=== PATIENT | female | born 1995 | race Caucasian/White ===

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

== ENCOUNTER 2017-01-10 15:31 | Emergency (ER) | payer MEDICAID ==
[2017-01-10 15:41] VITALS: BP 123/79
[2017-01-10] MEDS ORDERED: FAMOTIDINE 20 MG TABLET PO ONE (16:04)
[2017-01-10] MEDS ORDERED: PREDNISONE 20 MG TABLET PO ONE (16:04)
[2017-01-10] MEDS ORDERED: DIPHENHYDRAMINE HCL 25 MG CAPSULE PO ONE (16:04)
[2017-01-10] MEDS ORDERED: ACETAMINOPHEN 325 MG TABLET PO ONE (16:05)
--- NOTE | 2017-01-10 16:10 | ER Document Report ---
ED Skin Rash/Insect Bite/Abscs - General Chief Complaint: Rash Stated Complaint: POSSIBLE ALLERGIC REACTION Time Seen by Provider: 01/10/17 15:55 Mode of Arrival: Ambulatory Notes: 21-year-old female presents to ED for allergic reaction to the Holter monitor electrodes. She states that since they put the morning they started itching which was on January 08 they took him off yesterday and a rash developed at the spot of each electrode. She states that it did became painful to the area. There is no swelling there is a rash to each area. TRAVEL OUTSIDE OF THE [place] IN LAST 30 DAYS: No - HPI Patient complains to provider of: Skin rash/lesion Onset: Other - January 08 Onset/Duration: Gradual Quality of pain: Achy, Burning Pain Level: 1 Skin Character: Rash Quality of rash: Itchy Identify cause: Yes - Holter monitor electrodes Exacerbated by: Denies Relieved by: Denies Similar symptoms previously: No Recently seen / treated by doctor: Yes - Related Data Allergies/Adverse Reactions: No Known Drug Allergies Allergy (Verified 01/10/17 15:37) FISH Allergy (Uncoded 01/10/17 15:37) Past Medical History - General Information source: Patient - Social History Smoking Status: Never Smoker Cigarette use (# per day): No Chew tobacco use (# tins/day): No Smoking Education Provided: No Frequency of alcohol use: None Drug Abuse: None Occupation: none Lives with: Family Family History: Other - Patient states she does not know her father's family does not know his history Patient has suicidal ideation: No Patient has homicidal ideation: No - Past Medical History Cardiac Medical History: Reports: None Pulmonary Medical History: Reports: Hx Bronchitis EENT Medical History: Reports: None Neurological Medical History: Reports: None Endocrine Medical History: Reports: None Renal/ Medical History: Reports: None Malignancy Medical History: Reports: None GI Medical History: Reports: None Musculoskeltal Medical History: Reports Hx Musculoskeletal Deformity, Reports Hx Musculoskeletal Trauma Skin Medical History: Reports None Psychiatric Medical History: Reports: Hx Attention Deficit Hyperactivity Disorder Traumatic Medical History: Reports: Hx Fractures Infectious Medical History: Reports: None Surgical Hx: Negative Past Surgical History: Reports: None - Immunizations Immunizations up to date: Yes Hx Diphtheria, Pertussis, Tetanus Vaccination: Yes Review of Systems - Review of Systems Constitutional: No symptoms reported EENT: No symptoms reported Cardiovascular: No symptoms reported Respiratory: No symptoms reported Gastrointestinal: No symptoms reported Genitourinary: No symptoms reported Female Genitourinary: No symptoms reported Musculoskeletal: No symptoms reported Skin: Rash Hematologic/Lymphatic: No symptoms reported Neurological/Psychological: No symptoms reported -: Yes All other systems reviewed and negative Physical Exam - Vital signs Vitals: Temp Pulse Resp BP Pulse Ox 98.1 F 107 H 18 123/79 100 01/10/17 15:38 01/10/17 15:38 01/10/17 15:38 01/10/17 15:38 01/10/17 15:38 Interpretation: Normal - General General appearance: Appears well, Alert - HEENT Head: Normocephalic, Atraumatic Eyes: Normal Pupils: PERRL - Respiratory Respiratory status: No respiratory distress Chest status: Nontender Breath sounds: Normal Chest palpation: Normal - Cardiovascular Rhythm: Regular Heart sounds: Normal auscultation Murmur: No - Abdominal Inspection: Normal Distension: No distension Bowel sounds: Normal Tenderness: Nontender Organomegaly: No organomegaly - Back Back: Normal, Nontender - Extremities General upper extremity: Normal inspection, Nontender, Normal color, Normal ROM , Normal temperature General lower extremity: Normal inspection, Nontender, Normal color, Normal ROM , Normal temperature, Normal weight bearing. No: Gomez's sign - Neurological Neuro grossly intact: Yes Cognition: Normal Orientation: AAOx4 Kal Coma Scale Eye Opening: Spontaneous Kal Coma Scale Verbal: Oriented Kal Coma Scale Motor: Obeys Commands Kal Coma Scale Total: 15 Speech: Normal Motor strength normal: LUE, RUE, LLE, RLE Sensory: Normal - Psychological Associated symptoms: Normal affect, Normal mood - Skin Skin Temperature: Warm Skin Moisture: Dry Skin Color: Normal Skin irregularity: Rash Location of irregularity: Chest - At site of electrodes from Holter monitor Irregularity with: Tenderness - To site of Holter monitor electrolytes Course - Re-evaluation Re-evalutation: 01/10/17 16:20 Patient treated with prednisone and Pepcid Benadryl and Tylenol for her rash to her chest from her allergic reaction to the electrodes from her Holter monitor. Patient sent home with prescription for prednisone and Pepcid. Patient to follow-up with her primary doctor and the doctor who put the Holter monitor on her. - Vital Signs Vital signs: Temp Pulse Resp BP Pulse Ox 98.1 F 107 H 18 123/79 100 01/10/17 15:38 01/10/17 15:38 01/10/17 15:38 01/10/17 15:38 01/10/17 15:38 Discharge - Discharge Clinical Impression: allergic reaction to adhesive Condition: Stable Disposition: HOME, SELF-CARE Instructions: Family Physicians / Practices Additional Instructions: ACUTE ALLERGIC REACTION: Your symptoms are due to an allergic reaction. Allergy can cause hives, swelling of the hands, feet, and face, hoarseness, and difficulty swallowing or breathing. It may be due to exposure to medication, animal dander, foods, infection, or insect bites. Medication is a common cause, even when prior use of this same medication caused no problems. Acute treatment may include adrenalin and antihistamines. Usually, the specific allergic agent can't be identified unless repeated episodes occur. Home treatment includes the following: (1) Stop any suspicious medications. This will be discussed with you. (2) Oral antihistamines for the next four to five days. Example, diphenhydramine (Benadryl) every four hours. (3) You may also use cimetidine (Tagamet), ranitidine (Zantac), or famotidine ( Pepcid) every four hours if diphenhydramine is not controlling itching and hives. (4) Avoid aspirin until the hives completely disappear. (5) Avoid hot baths or showers until the hives are completely gone. Call the doctor if faintness, difficulty swallowing, tightness in the chest , or wheezing occurs. STEROID MEDICATION: You have been given a medicine of the cortisone/steroid class. This medication is used to control inflammation or allergy. It is usually only given for a short period of time, until the acute process subsides. There are usually no side effects from short-term use of cortisone-like medications. Some persons feel an increased sense of well-being and are not sleepy at bedtime. Long-term use of cortisone medications is best avoided, unless required for a severe condition. If your condition does not remit, or relapses after the course of corticosteroid medication, you should consult your physician. ACID-SUPPRESSING MEDICATION: You have a prescription for medicine which reduces the stomach's secretion of acid. Examples include Zantac, Tagament, and Pepcid. These drugs are often used to allow healing of ulcers or esophagitis. They may be needed to prevent recurrence of ulcers in some patients, or to prevent damage from acid reflux in the esophagus. Take all medication as prescribed, even after the pain is gone. Regular antacids may be added as needed if you have symptoms while taking this medicine. These medications sometimes are prescribed for allergic reactions because they have anti-histaminic effects and relieve the rash and itching of the reaction. There are usually no side effects from this medication. But, in rare cases and particularly in the elderly, serious problems can occur. Contact your doctor if there is fever, rash, hallucinations, confusion, or unusual bruising. Contact your doctor at once if you develop lightheadedness, black or bloody stool, or bloody vomitus. ANTIHISTAMINES: An antihistamine has been given and/or prescribed to control your symptoms. Antihistamines are used for many reasons, including itching, watering eyes, runny nose, allergic swelling, hives, and insect stings. Antihistamines may cause drowsiness, especially with the first dose. Do not operate machinery or drive while under the effects of the medication. Other common side effects include dry mouth and eyes. In older persons, antihistamines can occasionally cause urinary retention, constipation, and trouble focusing the eyes. Do not combine the medication with alcohol, or with any other medication without talking to your doctor. USE OF DIPHENHYDRAMINE: The use of diphenhydramine (Benadryl) has been recommended to control allergic symptoms. The 25 mg strength is available over- the-counter, as well as the elixir. This antihistamine is used for many symptoms. It's useful for itching, watering eyes and nose, allergic swelling, hives, and insect stings. The medication can be repeated four times daily. Age Elixir (12.5 mg/tsp) 25 mg pill 2-3 yr 1/2 tsp 4-8 yr 1 tsp 9-14 yr 2 tsp one tab adult 1-2 tabs Antihistamines may cause drowsiness, especially with the first dose. Do not operate machinery or drive while under the effects of the medication. Do not combine the medication with alcohol, or with any other medication without talking to your doctor. Please use Caladryl to the rash to decrease her symptoms. Take a cool tepid shower instead of a hot shower as hot showers will increase the itching FOLLOW-UP CARE: If you have been referred to a physician for follow-up care, call the physician s office for an appointment as you were instructed or within the next two days. If you experience worsening or a significant change in your symptoms, notify the physician immediately or return to the Emergency Department at any time for re-evaluation. Prescriptions: Famotidine [Pepcid 20 mg Tablet] 20 mg PO DAILY #12 tablet Prednisone [Sterapred Ds] 1 pkg PO ASDIR PRN 12 Days tab.ds.pk PRN Reason:
== END 2017-01-10 16:15 | disposition home or self-care (01) ==
LOC: ER 15:31
DX: T78.40XA Allergy, unspecified, initial encounter (principal); R21 Rash and other nonspecific skin eruption; X58.XXXA Exposure to other specified factors, initial encounter
CPT/HCPCS: 99282; J3490 ×3; J7512

== ENCOUNTER 2017-04-25 18:12 | Emergency (ER) | payer MEDICAID ==
--- NOTE | 2017-04-25 19:00 | ER Document Report ---
ED Medical Screen (RME) - General Chief Complaint: Epigastric Pain Stated Complaint: EPIGASTRIC PAIN Time Seen by Provider: 04/25/17 18:57 Notes: Patient presents with hand tingling chest pain epigastric pain trouble breathing weakness dizziness. She states she has a history of dilated aortic root, Ehler Danlos syndrome, pots disease, and autonomic dysfunction. She denies tobacco or hormone use. No previous history of PEs or DVTs. TRAVEL OUTSIDE OF THE [place] IN LAST 30 DAYS: No - Related Data Allergies/Adverse Reactions: nickel Allergy (Verified 04/25/17 18:15) No Known Drug Allergies Allergy (Verified 04/25/17 18:15) electrode gel Allergy (Uncoded 04/25/17 18:15) FISH Allergy (Uncoded 04/25/17 18:15) Home Medications: Current Home Medications Buspirone HCl 1 tab PO BID 04/25/17 [History] Hydroxyzine HCl 0.5 - 1 tab PO TID PRN 04/25/17 [History] Magnesium Oxide 2 tab PO BID 04/25/17 [History] Past Medical History - Social History Frequency of alcohol use: None Drug Abuse: None Pulmonary Medical History: Reports: Hx Bronchitis Renal/ Medical History: Denies: Hx Peritoneal Dialysis Musculoskeltal Medical History: Reports Hx Musculoskeletal Deformity, Reports Hx Musculoskeletal Trauma Psychiatric Medical History: Reports: Hx Attention Deficit Hyperactivity Disorder Traumatic Medical History: Reports: Hx Fractures - Immunizations Immunizations up to date: Yes Hx Diphtheria, Pertussis, Tetanus Vaccination: Yes History of Influenza Vaccine for 02/2017 - 07/2017 Season: No Physical Exam - Vital signs Vitals: Temp Pulse Resp BP Pulse Ox 98.4 F 101 H 16 121/69 100 04/25/17 18:21 04/25/17 18:21 04/25/17 18:21 04/25/17 18:21 04/25/17 18:21 Course - Vital Signs Vital signs: Temp Pulse Resp BP Pulse Ox 98.4 F 101 H 16 121/69 100 04/25/17 18:21 04/25/17 18:21 04/25/17 18:21 04/25/17 18:21 04/25/17 18:21
--- NOTE | 2017-04-25 19:37 | ER Document Report ---
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 Intermittent shortness of breath. She also has panic attacks and earlier today had hand tingling during the. "When I was freaking out" but did not have that now. She denies ripping or tearing pain, maximal at onset pain, pain radiating to the back or shoulders or other neurologic symptoms unilaterally. 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 TRAVEL OUTSIDE OF THE [place] IN LAST 30 DAYS: No - Related Data Allergies/Adverse Reactions: nickel Allergy (Verified 04/25/17 18:15) No Known Drug Allergies Allergy (Verified 04/25/17 18:15) electrode gel Allergy (Uncoded 04/25/17 18:15) FISH Allergy (Uncoded 04/25/17 18:15) Home Medications: Current Home Medications Buspirone HCl 1 tab PO BID 04/25/17 [History] Hydroxyzine HCl 0.5 - 1 tab PO TID PRN 04/25/17 [History] Magnesium Oxide 2 tab PO BID 04/25/17 [History] Past Medical History - Social History Smoking Status: Never Smoker Frequency of alcohol use: None Drug Abuse: None Family History: Other - Patient states she does not know her father's family does not know his history Patient has suicidal ideation: No Patient has homicidal ideation: No Pulmonary Medical History: Reports: Hx Bronchitis Renal/ Medical History: Denies: Hx Peritoneal Dialysis Musculoskeltal Medical History: Reports Hx Musculoskeletal Deformity, Reports Hx Musculoskeletal Trauma Psychiatric Medical History: Reports: Hx Attention Deficit Hyperactivity Disorder Traumatic Medical History: Reports: Hx Fractures - Immunizations Immunizations up to date: Yes Hx Diphtheria, Pertussis, Tetanus Vaccination: Yes Review of Systems - Review of Systems Notes: REVIEW OF SYSTEMS GEN: Denies fever, chills, weight loss ENT: Denies sore throat, nasal discharge, ear pain EYES: Denies blurry vision, eye pain, discharge CV: No palpitations positive subcostal chest pain RESP: D no cough or wheezing positive shortness of breath g GI: Denies abdominal pain, nausea, vomiting, diarrhea MSK: Denies joint pain/swelling, edema, SKIN: Denies rash, skin lesions LYMPH: Denies swollen glands/lymph nodes NEURO: Denies headache, focal weakness or numbness, dizziness PSYCH: Denies depression, suicidal or homicidal ideation PHYSICAL EXAMINATION General: No acute distress, well-nourished Head: Atraumatic, normocephalic ENT: Mouth normal, oropharynx moist, no exudates or tonsillar enlargement Eyes: Conjunctiva normal, pupils equal, lids normal Neck: No JVD, supple, no guarding CVS: Normal rate, regular rhythm, no murmurs Resp: No resp distress, equal and normal breath sounds bilaterally GI: Nondistended, soft, no tenderness to palpation, no rebound or guarding Ext: No deformities, no edema, normal range of motion in upper and lower ext. Hypermobility in hands and arms. Back: No CVA or midline TTP Skin: No rash, warm Lymphatic: No lymphadeopathy noted Neuro: Awake, alert. Face symmetric. GCS 15. 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 She is currently pain-free well-appearing with a normal cardiopulmonary exam. Her ECG here is normal. Recent negative stress test. Doubt acute coronary syndrome. In terms of other causes of her chest pain, and does not have the characteristics of aortic dissection despite her's solitary risk factor of having Nora-Danlos syndrome. I will get a chest x-ray and labs as ordered by the triage physician, but I do not think she needs a troponin or a CAT scan at this time. - Vital Signs Vital signs: Temp Pulse Resp BP Pulse Ox 98.4 F 101 H 16 121/69 100 04/25/17 18:21 04/25/17 18:21 04/25/17 18:21 04/25/17 18:21 04/25/17 18:21 - EKG Interpretation by Me EKG shows normal: Sinus rhythm, [place] Rate: Normal Rhythm: NSR When compared to previous EKG there are: Previous EKG unavailable - No ST or T- wave changes
[2017-04-25 19:41] LABS: AMORPHOUS SEDIMENT,URINE 1+ /HPF; APPEARANCE,URINE CLOUDY; BILIRUBIN,URINE NEGATIVE (NEGATIVE); GLUCOSE, URINE NEGATIVE (NEGATIVE); KETONES,URINE NEGATIVE (NEGATIVE); LEUKOCYTE ESTERASE,URINE NEGATIVE (NEGATIVE); NITRITE,URINE NEGATIVE (NEGATIVE); PROTEIN,URINE NEGATIVE (NEGATIVE); URINE SPECIFIC GRAVITY 1.021; UROBILINOGEN,URINE NEGATIVE mg/dL (<2.0)
[2017-04-25] MEDS ORDERED: IBUPROFEN 400 MG TABLET PO ONE (20:32)
--- NOTE | 2017-04-25 20:36 | RADIOLOGY REPORT (SQ) ---
EXAM DESCRIPTION: CHEST PA/LAT COMPLETED DATE/TIME: 04/25/2017 8:12 pm REASON FOR STUDY: chest pain, ehler's danlos. ?wide mediast. COMPARISON: 07/03/2016 EXAM PARAMETERS: NUMBER OF VIEWS: two views TECHNIQUE: Digital Frontal and Lateral radiographic views of the chest acquired. RADIATION DOSE: NA LIMITATIONS: none FINDINGS: LUNGS AND PLEURA: No acute opacities, masses or pneumothorax. No pleural effusion. MEDIASTINUM AND HILAR STRUCTURES: Stable. HEART AND VASCULAR STRUCTURES: Heart normal size. No evidence for failure. BONES: No acute findings. HARDWARE: None in the chest. OTHER: No other significant finding. IMPRESSION: Stable radiograph. No acute findings. TECHNICAL DOCUMENTATION: JOB ID: [id number] [id number] 2010 [employer]- All Rights Reserved
[2017-04-25 20:37] VITALS: BP 114/65
--- NOTE | 2017-04-26 07:50 | EKG REPORT ---
SEVERITY:- NORMAL ECG - SINUS RHYTHM : Confirmed by: Moshe Monroe MD 26-Apr-2017 07:49:07
== END 2017-04-25 20:37 | disposition home or self-care (01) ==
LOC: ER 18:12
DX: R07.89 Other chest pain (principal); Q79.6 Ehlers-Danlos syndromes; R06.02 Shortness of breath; Z91.013 Allergy to seafood; Z88.8 Allergy status to other drugs, medicaments and biological substances
CPT/HCPCS: 93005; 99284; 81025; 81001; 71020; 93010; J3490

== ENCOUNTER 2017-06-07 18:42 | Emergency (ER) | payer MEDICAID ==
--- NOTE | 2017-06-07 20:15 | ER Document Report ---
ED Medical Screen (RME) - General Chief Complaint: Dizziness Stated Complaint: BACK PAIN Time Seen by Provider: 06/07/17 20:11 Mode of Arrival: Ambulatory Information source: Patient Notes: Patient is a 21-year-old female with a history of anxiety who presents to the ER today for panic attack that she had on her way to work this afternoon. Patient states she rides a bicycle to work about a mile and on the way started feeling lightheaded, chest pain, stopped and had a nosebleed. She felt like she was going to pass out at that time but she did not. Patient states that this is what happens with her panic attacks that she took some hydroxyzine which she has for emergencies at that time. Patient did not go to work. TRAVEL OUTSIDE OF THE [place] IN LAST 30 DAYS: No - Related Data Allergies/Adverse Reactions: nickel Allergy (Verified 04/25/17 18:15) No Known Drug Allergies Allergy (Verified 04/25/17 18:15) electrode gel Allergy (Uncoded 04/25/17 18:15) FISH Allergy (Uncoded 04/25/17 18:15) Past Medical History - General Information source: Patient - Social History Chew tobacco use (# tins/day): No Frequency of alcohol use: None Drug Abuse: None Pulmonary Medical History: Reports: Hx Bronchitis Renal/ Medical History: Denies: Hx Peritoneal Dialysis Musculoskeltal Medical History: Reports Hx Musculoskeletal Deformity, Reports Hx Musculoskeletal Trauma Psychiatric Medical History: Reports: Hx Attention Deficit Hyperactivity Disorder Traumatic Medical History: Reports: Hx Fractures - Immunizations Immunizations up to date: Yes Hx Diphtheria, Pertussis, Tetanus Vaccination: Yes History of Influenza Vaccine for 02/2017 - 07/2017 Season: No Review of Systems - Review of Systems Neurological/Psychological: See HPI Physical Exam - Vital signs Vitals: Temp Pulse Resp BP Pulse Ox 98.6 F 115 H 18 132/65 H 100 06/07/17 19:08 06/07/17 19:08 06/07/17 19:08 06/07/17 19:08 06/07/17 19:08 - Notes Notes: PHYSICAL EXAMINATION: GENERAL: Anxious appearing, but in no acute distress. PSYCH: Anxious Course - Vital Signs Vital signs: Temp Pulse Resp BP Pulse Ox 98.6 F 115 H 18 132/65 H 100 06/07/17 19:08 06/07/17 19:08 06/07/17 19:08 06/07/17 19:08 06/07/17 19:08
[2017-06-07 22:16] LABS: APPEARANCE,URINE CLEAR; BILIRUBIN,URINE NEGATIVE (NEGATIVE); COLOR,URINE STRAW; GLUCOSE, URINE NEGATIVE (NEGATIVE); KETONES,URINE NEGATIVE (NEGATIVE); LEUKOCYTE ESTERASE,URINE TRACE (NEGATIVE); NITRITE,URINE NEGATIVE (NEGATIVE); PROTEIN,URINE NEGATIVE (NEGATIVE); URINE SPECIFIC GRAVITY 1.008; UROBILINOGEN,URINE NEGATIVE mg/dL (<2.0)
[2017-06-07 22:31] LABS: URINE AMPHETAMINES SCREEN NEGATIVE; URINE BARBITURATES SCREEN NEGATIVE; URINE BENZODIAZEPINES SCREEN NEGATIVE; URINE COCAINE SCREEN NEGATIVE; URINE MARIJUANA (THC) SCREEN NEGATIVE; URINE METHADONE SCREEN NEGATIVE; URINE PHENCYCLIDINE SCREEN NEGATIVE
--- NOTE | 2017-06-07 23:02 | ER Document Report ---
ED General - General Chief Complaint: Dizziness Stated Complaint: BACK PAIN Time Seen by Provider: 06/07/17 20:11 Mode of Arrival: Ambulatory Notes: Patient is a 21-year-old female presents with complaint of chest pain. She has a history of Nora-Danlos syndrome as well as history of palpitations and having skipped heartbeat. She also has history of anxiety and panic attacks. She says that she was having some chest pain earlier today. She start running or biking that she started having a bloody nose. She says she then start have a panic attack and came to the ER. Is followed by Dr. Gardner. 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 Gardner with echocardiograms. She says that she has had some similar chest pains in the past however this was a little different. Denies ever having studies looking her aorta. The pain she had tonight was a burning and pressure type sensation in the lower chest that radiated to her back. TRAVEL OUTSIDE OF THE [place] IN LAST 30 DAYS: No - Related Data Allergies/Adverse Reactions: nickel Allergy (Verified 04/25/17 18:15) No Known Drug Allergies Allergy (Verified 04/25/17 18:15) electrode gel Allergy (Uncoded 04/25/17 18:15) FISH Allergy (Uncoded 04/25/17 18:15) Past Medical History - General Information source: Patient - Social History Smoking Status: Never Smoker Chew tobacco use (# tins/day): No Frequency of alcohol use: None Drug Abuse: None Family History: Other - Patient states she does not know her father's family does not know his history Patient has suicidal ideation: No Patient has homicidal ideation: No Pulmonary Medical History: Reports: Hx Bronchitis Renal/ Medical History: Denies: Hx Peritoneal Dialysis Musculoskeltal Medical History: Reports Hx Musculoskeletal Deformity, Reports Hx Musculoskeletal Trauma Psychiatric Medical History: Reports: Hx Attention Deficit Hyperactivity Disorder Traumatic Medical History: Reports: Hx Fractures - Immunizations Immunizations up to date: Yes Hx Diphtheria, Pertussis, Tetanus Vaccination: Yes Physical Exam - Vital signs Vitals: Temp Pulse Resp BP Pulse Ox 98.6 F 115 H 18 132/65 H 100 06/07/17 19:08 06/07/17 19:08 06/07/17 19:08 06/07/17 19:08 06/07/17 19:08 Course - Re-evaluation Re-evalutation: 06/07/17 23:55 I talked to the patient and family at length. Informed her that I think it is less likely she has a dissection however I cannot rule out based on chest x-ray alone based on the fact that she has history of earliest Danlos syndrome, has tachycardia, has chest pain rating to the back. Explained to her and her family that this could be life-threatening. Patient still refuses blood work initially was refusing IV but after explained to her that they needed a CT scan with contrast she understands and now allowed me to place an IV. I first placed on IV under ultrasound in the right antecubital area. This IV was not flushing as well as I would like. I therefore placed another IV in the left antecubital area. This IV is flushing well. She has a 20-gauge IV in the left antecubital area. 06/08/17 06:17 CT scan was obtained. There is no evidence of aortic dissection or PE. Suspect coronary disease. Patient has had similar chest pains in the past and gets infrequently. The main difference with this chest pain is slightly with a worsening pressure than normal. She typically does have pain and radiates to her back; however, my concern tonight was that she was tachycardic but the pain going to her back and she says it was a little bit more intense than usual. With those symptoms in conjunction with her Nora-Danlos syndrome is why obtain a CTA which fortunately was negative. Patient is to follow-up with Dr. Gardner on Saturday. I encouraged her return to ER immediately if she has worsening pain, difficulty breathing, or feel unwell. Patient agrees with plan will be discharged home. Dictation of this chart was performed using voice recognition software; therefore, there may be some unintended grammatical errors. - Vital Signs Vital signs: Temp Pulse Resp BP Pulse Ox 98.1 F 115 H 19 112/69 100 06/08/17 02:11 06/07/17 19:08 06/08/17 02:01 06/08/17 02:00 06/08/17 02:01 - Laboratory Laboratory results interpreted by me: 06/07/17 21:55 Urine Blood SMALL H Ur Leukocyte Esterase TRACE H - EKG Interpretation by Me Additional EKG results interpreted by me: 06/08/17 01:53 EKG is reviewed and interpreted by me. EKG shows normal sinus rhythm with rate of [address] segment elevation or depression. No ischemic T-wave inversions. [place] interval, QRS duration, QTc intervals are within normal range. No old EKG available for comparison. Discharge - Discharge Clinical Impression: Dizziness Chest pain Qualifiers: Chest pain type: unspecified Qualified Code(s): R07.9 - Chest pain, unspecified Condition: Good Disposition: HOME, SELF-CARE Additional Instructions: You had a Ct scan of your chest today with contrast. It was normal without evidence of damage or dissection to your aorta. Your EKG was normal appearing without evidence of damage to your heart. Please follow up closely with Dr. Gardner. Please return to the ER immediately if you have worsneing of your symptoms , fevers, passing out, difficulty breathing, or feel unwell. Forms: Special Work Note, Return to Work Referrals: KAI GARDNER MD [EMERITUS] - 06/10/17
--- NOTE | 2017-06-07 23:09 | RADIOLOGY REPORT (SQ) ---
EXAM DESCRIPTION: CHEST PA/LAT COMPLETED DATE/TIME: 06/07/2017 10:54 pm REASON FOR STUDY: chest pain COMPARISON: Chest x-ray 04/25/2017. EXAM PARAMETERS: NUMBER OF VIEWS: two views TECHNIQUE: Digital Frontal and Lateral radiographic views of the chest acquired. RADIATION DOSE: NA LIMITATIONS: none FINDINGS: LUNGS AND PLEURA: No consolidation, pneumothorax or pleural effusion. MEDIASTINUM AND HILAR STRUCTURES: No masses or contour abnormalities. HEART AND VASCULAR STRUCTURES: Heart normal size. No evidence for failure. BONES: No acute findings. HARDWARE: None in the chest. IMPRESSION: No acute radiographic finding in the chest. TECHNICAL DOCUMENTATION: JOB ID: [id number] 2010 [employer] All Rights Reserved
[2017-06-07] MEDS ORDERED: NORMAL SALINE 1000 ML 1,000 ML IV ONE (23:54)
[2017-06-08] MEDS ORDERED: FENTANYL CITRATE INJ/PF 100 MCG/2 ML AMPUL IV ONE (00:06)
--- NOTE | 2017-06-08 01:02 | RADIOLOGY REPORT (SQ) ---
EXAM DESCRIPTION: CTA CHEST COMPLETED DATE/TIME: 06/08/2017 12:20 am REASON FOR STUDY: chest pain, Hx of Ehrlos Danlos syndrome COMPARISON: Chest x-ray 06/07/2017. TECHNIQUE: CT scan of the chest performed using helical scanning technique with dynamic intravenous contrast injection. Images reviewed with lung, soft tissue and bone windows. Reconstructed coronal and sagittal MPR images reviewed. Additional 3 dimensional post-processing performed to develop Maximal Intensity Projection images (DC P). All images stored on PACS. All CT scanners at this facility use dose modulation, iterative reconstruction, and/or weight based d osing when appropriate to reduce radiation dose to as low as reasonably achievable (ALARA). [facility]: Dose Right [facility]: CareDose [facility]: Dose Right [facility]: Teradose 4D [facility]: Weight Wins CONTRAST TYPE AND DOSE: contrast/concentration: Isovue 370.00 mg/ml; Total Contrast Delivered: 63.0 ml; Total Saline Delivered: 103.1 ml RENAL FUNCTION: None required. The patient is less than 50 years old. RADIATION DOSE: CT Rad equipment meets quality standard of care and radiation dose reduction techniq ues were employed. CTDIvol: 13.2 - 14.3 mGy. DLP: 564 mGy-cm. . LIMITATIONS: None. FINDINGS: LUNGS AND PLEURA: No consolidation, pleural effusion or pneumothorax. AORTA AND GREAT VESSELS: No thoracic aortic aneurysm or evidence for acute dissection. HEART: No pericardial effusion. No significant coronary artery calcifications. PULMONARY ARTERIES: No emboli visualized in the main pulmonary arteries or the segmental branches. HILAR AND MEDIASTINAL STRUCTURES: No identified masses or abnormal nodes. HARDWARE: None in the chest. UPPER ABDOMEN: No significant findings. Limited exam. THYROID AND OTHER SOFT TISSUES: No masses. No adenopathy. BONES: No acute findings. 3D MIPS: Confirm above findings. IMPRESSION: No pulmonary emboli. No thoracic aortic aneurysm or acute dissection. COMMENT: Quality ID # [id number]: Final reports with documentation of one or more dose reduction techniques (e.g., Automated exposure control, adjustment of the mA and/or kV according to patient size, use of iterative reconstruction technique) TECHNICAL DOCUMENTATION: JOB ID: [id number] [employer]- All Rights Reserved
[2017-06-08 02:03] VITALS: BP 112/69
--- NOTE | 2017-06-08 08:36 | EKG REPORT ---
SEVERITY:- NORMAL ECG - SINUS RHYTHM : Confirmed by: Moshe Monroe MD 08-Jun-2017 08:35:19
== END 2017-06-08 02:11 | disposition home or self-care (01) ==
LOC: ER 18:42
DX: R42 Dizziness and giddiness (principal); M54.9 Dorsalgia, unspecified; R07.9 Chest pain, unspecified; R00.2 Palpitations
CPT/HCPCS: 93005; 99285; 96361; 96374; 87086; 81025; 87088; 81001; 87186; 80307; 71046; 71275; 93010; J3010; J7030

== ENCOUNTER → 2017-06-11 | Outpatient (CLI) | payer MEDICAID ==
[2017-06-11 12:55] LABS: ALANINE AMINOTRANSFERASE 47 U/L (5-35); ALBUMIN 4.6 g/dL (3.7-5.6); ALKALINE PHOSPHATASE 45 U/L (50-135); ANION GAP 11 (5-19); ASPARTATE AMINO TRANSFERASE 24 U/L (5-30); BILIRUBIN,DIRECT 0.4 mg/dL (0.0-0.4); BILIRUBIN,TOTAL 0.7 mg/dL (0.2-1.3); BLOOD UREA NITROGEN 10 mg/dL (7-20); CALCIUM 9.9 mg/dL (8.4-10.2); CARBON DIOXIDE 25 mmol/L (22-30); CHLORIDE 102 mmol/L (98-107); GLUCOSE 91 mg/dL (75-110); POTASSIUM 4.5 mmol/L (3.6-5.0); SODIUM 138.1 mmol/L (137-145); TOTAL PROTEIN 7.3 g/dL (6.3-8.2)
== END ==
LOC: LAB 12:04
PROVIDERS: ATTEND Family Medicine
DX: G47.00 Insomnia, unspecified (principal); G90.9 Disorder of the autonomic nervous system, unspecified; I49.1 Atrial premature depolarization; Q79.6 Ehlers-Danlos syndromes
CPT/HCPCS: 36415; 80053; 84443

== ENCOUNTER 2017-07-22 14:31 | Emergency (ER) | payer OTHER, MEDICAID ==
[2017-07-22] MEDS ORDERED: ACETAMINOPHEN 325 MG TABLET PO ONE (14:39)
[2017-07-22] MEDS ORDERED: IBUPROFEN 600 MG TABLET PO ONE (15:38)
--- NOTE | 2017-07-22 16:14 | RADIOLOGY REPORT (SQ) ---
EXAM DESCRIPTION: CERV SP 3 VIEW OR LESS COMPLETED DATE/TIME: 07/22/2017 4:04 pm REASON FOR STUDY: fall/pain COMPARISON: None. NUMBER OF VIEWS: Three views. TECHNIQUE: AP, lateral and odontoid radiographic images acquired of the cervical spine. LIMITATIONS: None. FINDINGS: MINERALIZATION: Normal. ALIGNMENT: Anatomic. VERTEBRAE: Vertebral bodies of normal height. DISCS: No significant disc space narrowing. No large osteophytes. HARDWARE: None in the spine. SOFT TISSUES: No masses or calcifications. Lung apices clear. OTHER: No other significant finding. IMPRESSION: NO SIGNIFICANT RADIOGRAPHIC FINDING IN THE CERVICAL SPINE. TECHNICAL DOCUMENTATION: JOB ID: [id number] [employer]- All Rights Reserved Reading location - IP/workstation name: [email or web address]
--- NOTE | 2017-07-22 16:48 | ER Document Report ---
ED Fall - General Chief Complaint: Fall Stated Complaint: FALL/BACK AND NECK PAIN Time Seen by Provider: 07/22/17 15:27 Mode of Arrival: Ambulatory Information source: Patient Notes: Patient states that she was walking at work when she tripped over a can that was in the floor. She states she fell forward and injured the left side of her jaw her neck as well as both wrists and both knees. All of the pain gets worse with movement and better with rest. It is constant moderate and throbbing. The pain does radiate from these areas throughout her body. She denies any loss of consciousness. No vomiting or diarrhea recently. No recent fevers cough cold or congestion. TRAVEL OUTSIDE OF THE [place] IN LAST 30 DAYS: No - Related data Allergies/Adverse Reactions: nickel Allergy (Verified 07/22/17 14:36) No Known Drug Allergies Allergy (Verified 07/22/17 14:36) electrode gel Allergy (Uncoded 04/25/17 18:15) FISH Allergy (Uncoded 04/25/17 18:15) Past Medical History - General Information source: Patient - Social History Smoking Status: Never Smoker Chew tobacco use (# tins/day): No Frequency of alcohol use: None Drug Abuse: None Family History: Reviewed & Not Pertinent, Other - Patient states she does not know her father's family does not know his history Patient has suicidal ideation: No Patient has homicidal ideation: No Pulmonary Medical History: Reports: Hx Bronchitis Renal/ Medical History: Denies: Hx Peritoneal Dialysis Musculoskeltal Medical History: Reports Hx Musculoskeletal Deformity, Reports Hx Musculoskeletal Trauma Psychiatric Medical History: Reports: Hx Attention Deficit Hyperactivity Disorder Traumatic Medical History: Reports: Hx Fractures - Immunizations Immunizations up to date: Yes Hx Diphtheria, Pertussis, Tetanus Vaccination: Yes Review of Systems - Review of Systems Constitutional: denies: Chills, Fever Cardiovascular: denies: Chest pain, Palpitations Respiratory: denies: Cough, Short of breath -: Yes All other systems reviewed and negative Physical Exam - Vital signs Vitals: Temp Pulse Resp BP Pulse Ox 98.0 F 100 H 14 111/68 98 07/22/17 14:40 07/22/17 14:40 07/22/17 14:40 07/22/17 14:40 07/22/17 14:40 Interpretation: Normal - General General appearance: Appears well, Alert In distress: None - HEENT Head: Normocephalic, Tenderness, Other - left mandible tender but can open mouth wide without pain Eyes: Normal Pupils: PERRL Neck: Other - C-spine is diffusely tender to palpation but there is no step-off or deformity. She does have some left paraspinal muscular tenderness in the cervical region. - Respiratory Respiratory status: No respiratory distress Chest status: Nontender Breath sounds: Normal Chest palpation: Normal - Cardiovascular Rhythm: Regular Heart sounds: Normal auscultation Murmur: No - Abdominal Inspection: Normal Distension: No distension Bowel sounds: Normal Tenderness: Nontender Organomegaly: No organomegaly - Back Back: Normal, Nontender - Extremities General upper extremity: Normal inspection, Nontender, Normal color, Normal ROM , Normal temperature General lower extremity: Normal inspection, Nontender, Normal color, Normal ROM , Normal temperature, Normal weight bearing. No: Gomez's sign - Neurological Neuro grossly intact: Yes Cognition: Normal Orientation: AAOx4 [place] Coma Scale Eye Opening: Spontaneous [place] Coma Scale Verbal: Oriented [place] Coma Scale Motor: Obeys Commands [place] Coma Scale Total: 15 Speech: Normal Motor strength normal: LUE, RUE, LLE, RLE Sensory: Normal - Psychological Associated symptoms: Normal affect, Normal mood - Skin Skin Temperature: Warm Skin Moisture: Dry Skin Color: Normal Course - Vital Signs Vital signs: Temp Pulse Resp BP Pulse Ox 98.0 F 100 H 14 111/68 98 07/22/17 14:40 07/22/17 14:40 07/22/17 14:40 07/22/17 14:40 07/22/17 14:40 - Diagnostic Test Radiology reviewed: Image reviewed, Reports reviewed - C-spine film reviewed and shows no evidence of fracture dislocation Discharge - Discharge Clinical Impression: Cervical strain, acute Qualifiers: Encounter type: initial encounter Qualified Code(s): S16.1XXA - Strain of muscle, fascia and tendon at neck level, initial encounter Fall Qualifiers: Encounter type: initial encounter Qualified Code(s): W19.XXXA - Unspecified fall, initial encounter Contusion of mandibular joint area Qualifiers: Encounter type: initial encounter Qualified Code(s): S00.83XA - Contusion of other part of head, initial encounter Condition: Stable Disposition: HOME, SELF-CARE Instructions: Contusion ([facility]), Neck Injury (Cervical Strain) ([facility]) Additional Instructions: It is okay to use Motrin [id number] for pain. Prescriptions: Hydrocodone/Acetaminophen [[place] 5-325 mg Tablet] 1 tab PO Q6 PRN 3 Days #10 tablet PRN Reason: Forms: Return to Work
[2017-07-22 17:02] VITALS: BP 113/63
== END 2017-07-22 17:05 | disposition home or self-care (01) ==
LOC: ER 14:31
DX: S16.1XXA Strain of muscle, fascia and tendon at neck level, initial encounter (principal); S00.83XA Contusion of other part of head, initial encounter; W01.0XXA Fall on same level from slipping, tripping and stumbling without subsequent striking against object, initial encounter; Y99.0 Civilian activity done for income or pay; Z91.013 Allergy to seafood; Z91.048 Other nonmedicinal substance allergy status
CPT/HCPCS: 72040; 99283

== ENCOUNTER → 2017-07-31 | Outpatient (CLI) | payer OTHER, MEDICAID ==
[2017-07-31 18:04] LABS: ALANINE AMINOTRANSFERASE 32 U/L (5-35); ALBUMIN 4.9 g/dL (3.7-5.6); ALKALINE PHOSPHATASE 49 U/L (50-135); ANION GAP 10 (5-19); ASPARTATE AMINO TRANSFERASE 23 U/L (5-30); BILIRUBIN,DIRECT 0.3 mg/dL (0.0-0.4); BILIRUBIN,TOTAL 0.3 mg/dL (0.2-1.3); BLOOD UREA NITROGEN 13 mg/dL (7-20); CARBON DIOXIDE 29 mmol/L (22-30); CHLORIDE 102 mmol/L (98-107); GLUCOSE 79 mg/dL (75-110); POTASSIUM 3.6 mmol/L (3.6-5.0); SODIUM 141.4 mmol/L (137-145); TOTAL PROTEIN 7.8 g/dL (6.3-8.2)
== END ==
LOC: LAB 17:23
PROVIDERS: ATTEND Family Medicine
DX: G47.00 Insomnia, unspecified (principal); G90.9 Disorder of the autonomic nervous system, unspecified; I49.1 Atrial premature depolarization; Q79.6 Ehlers-Danlos syndromes
CPT/HCPCS: 36415; 80053; 84443

== ENCOUNTER 2017-08-29 18:25 | Emergency (ER) | payer MEDICAID, OTHER ==
[2017-08-29 18:40] VITALS: BP 93/54
--- NOTE | 2017-08-29 19:55 | ER Document Report ---
ED Extremity Problem, Lower - General Chief Complaint: Toe Injury Stated Complaint: FOOT/TOE INJURY Time Seen by Provider: 08/29/17 19:17 Mode of Arrival: Ambulatory Information source: Patient TRAVEL OUTSIDE OF THE [place] IN LAST 30 DAYS: No - HPI Patient complains to provider of: Injury Location: Foot Occurred: This afternoon Notes: Patient is here with complaints of left foot pain. She states that she was walking her dogs she slipped in some grass injuring her right foot. She complains of pain at the first and fifth metatarsals. No ankle pain. She complains of some numbness to her left second toe. The remainder of her foot she states feels normal. No redness or swelling. No fevers. No nausea, vomiting, diarrhea. She denies any other injuries at this time. Pain is worse with ambulation and touching the area. - Related Data Allergies/Adverse Reactions: nickel Allergy (Verified 08/29/17 18:27) No Known Drug Allergies Allergy (Verified 08/29/17 18:27) electrode gel Allergy (Uncoded 08/29/17 18:27) FISH Allergy (Uncoded 08/29/17 18:27) Past Medical History - Social History Smoking Status: Never Smoker Chew tobacco use (# tins/day): No Frequency of alcohol use: None Drug Abuse: None Family History: Reviewed & Not Pertinent, Other - Patient states she does not know her father's family does not know his history Patient has suicidal ideation: No Patient has homicidal ideation: No Pulmonary Medical History: Reports: Hx Bronchitis Renal/ Medical History: Denies: Hx Peritoneal Dialysis Musculoskeltal Medical History: Reports Hx Musculoskeletal Deformity, Reports Hx Musculoskeletal Trauma Psychiatric Medical History: Reports: Hx Attention Deficit Hyperactivity Disorder Traumatic Medical History: Reports: Hx Fractures - Immunizations Immunizations up to date: Yes Hx Diphtheria, Pertussis, Tetanus Vaccination: Yes Review of Systems - Review of Systems -: Yes All other systems reviewed and negative Physical Exam - Vital signs Vitals: Temp Pulse Resp BP Pulse Ox 98.7 F 92 H 16 93/54 L 99 08/29/17 18:36 08/29/17 18:36 08/29/17 18:36 08/29/17 18:36 08/29/17 18:36 - Notes Notes: GENERAL: alert, cooperative, nontoxic, no distress. HEAD: normocephalic, atraumatic EYES: conjunctiva pink without discharge, no external redness or swelling. EARS: no external swelling, no external redness NOSE: atraumatic, no external swelling MOUTH/THROAT: mucous membranes moist and pink NECK: soft, supple, full range of motion, no meningismus. CHEST: no distress, lungs clear and equal throughout. No wheezing, rales, rhonchi. CARDIAC: regular rate and rhythm, no murmur, normal capillary refill, normal pulses. BACK: full range of motion, no CVA tenderness. EXTREMITIES: full range of motion of all extremities. No redness, no swelling. Tenderness palpation of the left foot over the first and fifth metatarsals. No deformity. Normal pulse. Normal cap refill. Decreased sensation to the second toe, the remainder the foot has normal sensation. No ankle tenderness. Achilles is intact with a normal Mckeon's test. NEURO: alert and oriented 3, no focal deficits, full range of motion of all extremities. PYSCH: appropriate mood, affect. Patient is cooperative. SKIN: pink, warm, dry, no rash. Course - Re-evaluation Re-evalutation: 08/29/17 20:08 Patient is nontoxic appearing with stable vitals. The patient is here with complaints of left foot pain after injuring her foot. Exam is unremarkable. No signs of infection. She has a normal neurovascular exam. X-rays of the foot show no acute fracture. Patient will be placed in a postop shoe as needed for comfort. Discharged home with a prescription for Naprosyn. Follow-up if not better in 1 week, sooner for increasing pain, fever, redness, numbness, tingling, weakness, any further concerns. The patient's emergency department workup and current diagnosis were explained to the patient and or family. Follow-up instructions were provided. Medications if prescribed were discussed. Instructions for when to return to the emergency department including specific worrisome symptoms were discussed with the patient and/or family. - Vital Signs Vital signs: Temp Pulse Resp BP Pulse Ox 98.7 F 92 H 16 93/54 L 99 08/29/17 18:36 08/29/17 18:36 08/29/17 18:36 08/29/17 18:36 08/29/17 18:36 - Diagnostic Test Radiology reviewed: Image reviewed, Reports reviewed - Negative foot x-ray Procedures - Immobilization Left foot Pre-Proc Neuro Vasc Exam: Normal Immobilizer type: Post-op shoe Performed by: PCT Post-Proc Neuro Vasc Exam: Normal Alignment checked and good: Yes Discharge - Discharge Clinical Impression: Sprain of left foot Qualifiers: Encounter type: initial encounter Qualified Code(s): S93.602A - Unspecified sprain of left foot, initial encounter Condition: Stable Disposition: HOME, SELF-CARE Instructions: Sprain ([facility]) Additional Instructions: Take medications as prescribed. Wear splint as needed for comfort. Rest, ice, elevate. Follow-up with your doctor if not better in 1 week, sooner for increasing pain, fever, numbness, tingling, weakness, redness, any further concerns. Prescriptions: Naproxen [Naprosyn] 500 mg PO BID #20 tablet Forms: Smoking Cessation Education Referrals: [facility] [Provider Group] - Follow up as needed
--- NOTE | 2017-08-29 20:03 | RADIOLOGY REPORT (SQ) ---
EXAM DESCRIPTION: FOOT LEFT COMPLETE COMPLETED DATE/TIME: 08/29/2017 7:40 pm REASON FOR STUDY: PAIN COMPARISON: None. NUMBER OF VIEWS: Three views. TECHNIQUE: AP, lateral and oblique radiographic images acquired of the left foot. LIMITATIONS: None. FINDINGS: MINERALIZATION: Normal. BONES: No acute fracture or dislocation. No worrisome bone lesions. JOINTS: No effusions. SOFT TISSUES: No soft tissue swelling. No foreign body. OTHER: No other significant finding. IMPRESSION: NO RADIOGRAPHIC EVIDENCE OF ACUTE INJURY. TECHNICAL DOCUMENTATION: JOB ID: [id number] 2010 [employer]- All Rights Reserved Reading location - IP/workstation name: [email or web address]
== END 2017-08-29 20:22 | disposition home or self-care (01) ==
LOC: ER 18:25
DX: S93.602A Unspecified sprain of left foot, initial encounter (principal); M79.672 Pain in left foot; R20.0 Anesthesia of skin; W01.0XXA Fall on same level from slipping, tripping and stumbling without subsequent striking against object, initial encounter; Y93.K1 Activity, walking an animal
CPT/HCPCS: 99283

== ENCOUNTER → 2017-09-19 | Outpatient (CLI) | payer MEDICAID | LOC: LAB 18:13 | PROVIDERS: ATTEND Nurse Practitioner Acute Care | DX: N91.2 Amenorrhea, unspecified (principal); R10.84 Generalized abdominal pain; R30.0 Dysuria | CPT/HCPCS: 36415; 84703; 87086; 87088; 87186 ==

== ENCOUNTER 2017-09-22 21:59 | Emergency (ER) | payer MEDICAID ==
[2017-09-22] MEDS ORDERED: NORMAL SALINE 1000 ML 1,000 ML IV ONE (23:43)
[2017-09-22] MEDS ORDERED: DIPHENHYDRAMINE HCL 50 MG/ML VIAL IV ONE (23:43)
[2017-09-22] MEDS ORDERED: METOCLOPRAMIDE HCL INJ/PF 10 MG/2 ML SDV IV ONE (23:43)
--- NOTE | 2017-09-22 23:44 | ER Document Report ---
ED GI/ - General Chief Complaint: Abdominal Pain Stated Complaint: ABDOMINAL PAIN Time Seen by Provider: 09/22/17 23:34 Mode of Arrival: Ambulatory Information source: Patient Notes: Patient is a 21-year-old female who presents to the ER today for migraine 2 days. Patient states that she has been using Tylenol at home which has not helped. Patient has a history of migraines. Patient states she is light sensitive consult. Patient is also very concerned that she is today. This is despite having for negative urine test at home and having her primary care provider, Dr. Harrison run a blood test yesterday that was negative per patient patient states that she is 4 days late for her menstrual cycle and so she thinks that she is . Patient is admitting to some lower abdominal pain and some low back pain. She denies any fevers or chills, nausea vomiting or diarrhea. She denies any dysuria, hematuria. She denies history of kidney stones. She states that it is on both sides of her lower abdomen and back. TRAVEL OUTSIDE OF THE [place] IN LAST 30 DAYS: No - Related Data Allergies/Adverse Reactions: nickel Allergy (Verified 09/22/17 22:07) No Known Drug Allergies Allergy (Verified 09/22/17 22:07) electrode gel Allergy (Uncoded 09/22/17 22:07) FISH Allergy (Uncoded 09/22/17 22:07) Past Medical History - General Information source: Patient - Social History Smoking Status: Never Smoker Family History: Reviewed & Not Pertinent, Other - Patient states she does not know her father's family does not know his history Pulmonary Medical History: Reports: Hx Bronchitis Renal/ Medical History: Denies: Hx Peritoneal Dialysis Musculoskeltal Medical History: Reports Hx Musculoskeletal Deformity, Reports Hx Musculoskeletal Trauma Psychiatric Medical History: Reports: Hx Attention Deficit Hyperactivity Disorder Traumatic Medical History: Reports: Hx Fractures - Immunizations Immunizations up to date: Yes Hx Diphtheria, Pertussis, Tetanus Vaccination: Yes Review of Systems - Review of Systems Constitutional: No symptoms reported EENT: No symptoms reported Cardiovascular: No symptoms reported Respiratory: No symptoms reported Gastrointestinal: See HPI Genitourinary: No symptoms reported Female Genitourinary: No symptoms reported Musculoskeletal: No symptoms reported Skin: No symptoms reported Hematologic/Lymphatic: No symptoms reported Neurological/Psychological: See HPI Physical Exam - Vital signs Vitals: Temp Pulse Resp BP Pulse Ox 99.2 F 84 16 110/80 100 09/22/17 22:29 09/22/17 22:29 09/22/17 22:29 09/22/17 22:29 09/22/17 22:29 - Notes Notes: PHYSICAL EXAMINATION: GENERAL: Light-sensitive, otherwise in no acute distress. HEAD: Atraumatic, normocephalic. EYES: See general, otherwise pupils equal round and reactive to light, extraocular movements intact, sclera anicteric, conjunctiva are normal. ENT: ear canals without erythema or foreign body, TMs pearly [place] with good bony landmarks, nares patent, oropharynx clear without exudates. Moist mucous membranes. NECK: Normal range of motion, supple without lymphadenopathy LUNGS: CTAB and equal. No wheezes rales or rhonchi. HEART: Regular rate and rhythm without murmurs ABDOMEN: Soft, no tenderness. No guarding, no rebound BACK: no vertebral tenderness, normal ROM GI/: no CVA tenderness EXTREMITIES: Normal range of motion, no pitting edema. No cyanosis. NEUROLOGICAL: Cranial nerves grossly intact. Normal sensory/motor exams. PSYCH: Normal mood, normal affect. SKIN: Warm, Dry, normal turgor, no rashes or lesions noted Course - Re-evaluation Re-evalutation: 09/23/17 02:54 Lab work is unremarkable today with a negative serum hCG, normal urinalysis. Patient feels much better after migraine cocktail and would like to go home. Her abdominal exam was benign today. - Vital Signs Vital signs: Temp Pulse Resp BP Pulse Ox 99.2 F 84 16 110/80 100 09/22/17 22:29 09/22/17 22:29 09/22/17 22:29 09/22/17 22:29 09/22/17 22:29 - Laboratory Result Diagrams: 09/23/17 01:33 09/23/17 01:33 Laboratory results interpreted by me: 09/23/17 01:33 Alkaline Phosphatase 40 L Discharge - Discharge Clinical Impression: Migraine Qualifiers: Migraine type: unspecified Status migrainosus presence: without status migrainosus Intractability: not intractable Qualified Code(s): G43.909 - Migraine, unspecified, not intractable, without status migrainosus Condition: Stable Disposition: HOME, SELF-CARE Additional Instructions: Return immediately for any new or worsening symptoms. Follow up with primary care provider, call tomorrow to make followup appointment. Forms: Return to Work Referrals: AURA HARRISON MD [Primary Care Provider] - Follow up as needed
[2017-09-23 00:33] LABS: APPEARANCE,URINE CLEAR; BILIRUBIN,URINE NEGATIVE (NEGATIVE); COLOR,URINE STRAW; GLUCOSE, URINE NEGATIVE (NEGATIVE); KETONES,URINE NEGATIVE (NEGATIVE); LEUKOCYTE ESTERASE,URINE NEGATIVE (NEGATIVE); NITRITE,URINE NEGATIVE (NEGATIVE); PROTEIN,URINE NEGATIVE (NEGATIVE); URINE SPECIFIC GRAVITY 1.005; UROBILINOGEN,URINE NEGATIVE mg/dL (<2.0)
[2017-09-23 01:54] LABS: ABSOLUTE EOSINOPHILS # (AUTO) 0.1 10^3/uL (0.0-0.6); ABSOLUTE MONOCYTES (AUTO) 0.6 10^3/uL (0.1-1.4); ABSOLUTE NEUT (AUTO) 5.7 10^3/uL (1.7-8.2); BASOPHILS % (AUTO) 0.4 % (0-2); EOSINOPHILS % (AUTO) 1.3 % (0-6); HEMOGLOBIN 12.8 g/dL (12.0-15.5); LYMPHOCYTES % (AUTO) 38.2 % (13-45); MEAN CORPUSCULAR HEMOGLOBIN 31.2 pg (27.0-33.4); MEAN CORPUSCULAR HGB CONC 34.6 g/dL (32.0-36.0); MEAN CORPUSCULAR VOLUME 90 fl (80-97); MONOCYTES % (AUTO) 5.5 % (3-13); PLATELET COUNT 329 10^3/uL (150-450); RED BLOOD COUNT 4.11 10^6/uL (3.72-5.28); RED CELL DISTRIBUTION WIDTH 12.4 % (11.5-14.0); SEGMENTED NEUTROPHILS % (AUTO) 54.6 % (42-78); TOTAL CELLS COUNTED % (AUTO) 100 %; WHITE BLOOD COUNT 10.5 10^3/uL (4.0-10.5)
[2017-09-23 02:01] LABS: ALANINE AMINOTRANSFERASE 23 U/L (5-35); ALBUMIN 4.3 g/dL (3.7-5.6); ALKALINE PHOSPHATASE 40 U/L (50-135); ANION GAP 15 (5-19); ASPARTATE AMINO TRANSFERASE 19 U/L (5-30); BILIRUBIN,DIRECT 0.2 mg/dL (0.0-0.4); BILIRUBIN,TOTAL 0.5 mg/dL (0.2-1.3); BLOOD UREA NITROGEN 12 mg/dL (7-20); CALCIUM 9.1 mg/dL (8.4-10.2); CARBON DIOXIDE 23 mmol/L (22-30); CHLORIDE 106 mmol/L (98-107); GLUCOSE 85 mg/dL (75-110); LIPASE 149.5 U/L (23-300); POTASSIUM 4.2 mmol/L (3.6-5.0); SODIUM 144.2 mmol/L (137-145)
[2017-09-23 02:52] VITALS: BP 104/58
== END 2017-09-23 02:53 | disposition home or self-care (01) ==
LOC: ER 21:59
DX: G43.909 Migraine, unspecified, not intractable, without status migrainosus (principal); R10.30 Lower abdominal pain, unspecified; M54.5 Low back pain
CPT/HCPCS: 99283; 96361; 96374; 96375; 36415; 83690; 84703; 85025; 80053; 81001; J1200; J2765; J7030

== ENCOUNTER 2017-11-13 15:08 | Emergency (ER) | payer MEDICAID ==
[2017-11-13] MEDS ORDERED: IBUPROFEN 800 MG TABLET PO ONE (15:24)
--- NOTE | 2017-11-13 15:30 | ER Document Report ---
ED Hand/Wrist Injury - General Chief Complaint: Thumb Injury Stated Complaint: THUMB INJURY Time Seen by Provider: 11/13/17 15:22 Mode of Arrival: Ambulatory Information source: Patient Notes: 21-year-old female presented to ED for complaint of pain to her left thumb and hand. She states that she was cleaning the refrigerator yesterday when she had some very sharp burning pain inside of her thumb. She was just moving stuff around in the refrigerator. She did not fall or in any way landed on her thumb. Patient is a alert respirations regular and unlabored speaking in full sentences and walk with a even steady gait. TRAVEL OUTSIDE OF THE [place] IN LAST 30 DAYS: No - HPI Injury to: Hand, Thumb Onset: Yesterday Where: Home, Indoors Timing: Still present Quality of pain: Cramping Severity: Moderate Pain Level: 3 Context: Fall - Related Data Allergies/Adverse Reactions: nickel Allergy (Verified 11/13/17 15:11) No Known Drug Allergies Allergy (Verified 11/13/17 15:11) electrode gel Allergy (Uncoded 11/13/17 15:11) FISH Allergy (Uncoded 11/13/17 15:11) Past Medical History - General Information source: Patient - Social History Smoking Status: Never Smoker Cigarette use (# per day): No Chew tobacco use (# tins/day): No Smoking Education Provided: No Frequency of alcohol use: None Drug Abuse: None Lives with: Spouse/Significant other Family History: Reviewed & Not Pertinent, Other - Patient states she does not know her father's family does not know his history Patient has suicidal ideation: No Patient has homicidal ideation: No - Past Medical History 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[place], Nora-Danlos, arrhythmia Pulmonary Medical History: Reports: Hx Bronchitis EENT Medical History: Reports: None Neurological Medical History: Reports: None Endocrine Medical History: Reports: None Renal/ Medical History: Reports: None Malignancy Medical History: Reports: None GI Medical History: Reports: None Musculoskeltal Medical History: Reports Hx Musculoskeletal Deformity, Reports Hx Musculoskeletal Trauma Skin Medical History: Reports None Psychiatric Medical History: Reports: Hx Anxiety, Hx Attention Deficit Hyperactivity Disorder - Anxiety, Hx Depression Traumatic Medical History: Reports: Hx Fractures Infectious Medical History: Reports: None Surgical Hx: Negative Past Surgical History: Reports: None - Immunizations Immunizations up to date: Yes Hx Diphtheria, Pertussis, Tetanus Vaccination: Yes Review of Systems - Review of Systems Constitutional: No symptoms reported EENT: No symptoms reported Cardiovascular: No symptoms reported Respiratory: No symptoms reported Gastrointestinal: No symptoms reported Genitourinary: No symptoms reported Female Genitourinary: No symptoms reported Musculoskeletal: Other - Left thumb pain Skin: No symptoms reported Hematologic/Lymphatic: No symptoms reported Neurological/Psychological: No symptoms reported -: Yes All other systems reviewed and negative Physical Exam - Vital signs Vitals: Temp Pulse Resp BP Pulse Ox 97.4 F 94 H 18 116/77 100 11/13/17 15:12 11/13/17 15:12 11/13/17 15:12 11/13/17 15:12 11/13/17 15:12 Interpretation: Normal - General General appearance: Appears well, Alert - HEENT Head: Normocephalic, Atraumatic Eyes: Normal Pupils: PERRL - Respiratory Respiratory status: No respiratory distress Chest status: Nontender Breath sounds: Normal Chest palpation: Normal - Cardiovascular Rhythm: Regular Heart sounds: Normal auscultation Murmur: No - Abdominal Inspection: Normal Distension: No distension Bowel sounds: Normal Tenderness: Nontender Organomegaly: No organomegaly - Back Back: Normal, Nontender - Extremities General upper extremity: Normal inspection, Normal color, Normal ROM, Normal temperature General lower extremity: Normal inspection, Nontender, Normal color, Normal ROM , Normal temperature, Normal weight bearing. No: Gomez's sign Wrist: Limited ROM - Due to pain. No: Abrasion, Axial load of thumb pain, Deformity, Dislocation, Ecchymosis, Laceration, Navicular tenderness Hand: Tender - Left thumb pain, No evidence of human bite. No: Abrasion, Deformity, Dislocation, Ecchymosis, Instability, Laceration, Nail injury, No evidence of FB, Swelling, Tendon deficit - Neurological Neuro grossly intact: Yes Cognition: Normal Orientation: AAOx4 [place] Coma Scale Eye Opening: Spontaneous [place] Coma Scale Verbal: Oriented [place] Coma Scale Motor: Obeys Commands [place] Coma Scale Total: 15 Speech: Normal Motor strength normal: LUE, RUE, LLE, RLE Sensory: Normal - Psychological Associated symptoms: Normal affect, Normal mood - Skin Skin Temperature: Warm Skin Moisture: Dry Skin Color: Normal Course - Re-evaluation Re-evalutation: 11/13/17 16:18 X-ray was negative for any type of bony abnormality. Patient does have range of motion to the thumb. She has equal pain in both thumbs and does not recall any injury to the thumb. Patient does have multiple syndromes that cause pain. Patient has been get instructed to follow-up with her primary doctor and with orthopedics. Patient was instructed on use of ibuprofen and Tylenol warm packs and ice packs for her pain. - Vital Signs Vital signs: Temp Pulse Resp BP Pulse Ox 98.2 F 85 16 113/74 100 11/13/17 16:12 11/13/17 16:12 11/13/17 16:12 11/13/17 16:12 11/13/17 16:12 - Diagnostic Test Radiology reviewed: Image reviewed, Reports reviewed Discharge - Discharge Clinical Impression: Pain of left thumb Condition: Stable Disposition: HOME, SELF-CARE Instructions: Acetaminophen, Use of Dhlx-Cnr-[id number] Ibuprofen ([facility]) Additional Instructions: You were seen today for pain in your left thumb Your x-ray do not show any bony abnormalities. You have been given a copy of your x-rays to follow-up with your primary doctor and with an orthopedic doctor. Elevate ice Tylenol and Motrin for your pain until you follow-up with your primary doctor USE OF TYLENOL (ACETAMINOPHEN): Acetaminophen may be taken for pain relief or fever control. It's much safer than aspirin, offering a wider range of "safe" dosages. It is safe during . Some brand names are Tylenol, Panadol, Datril, Anacin 3, Tempra, and Liquiprin. Acetaminophen can be repeated every four hours. The following are maximum recommended dosages: WEIGHT Dose Drops Elixir Chewable( 80mg) (LBS.) drprs=droppers tsp=teaspoon 6 40 mg 0.4 ml (1/2) 6-11 80 mg 0.8 ml (full) tsp 1 tab 12-16 120 mg 1 1/2 drprs 3/4 tsp 1 1/2 tabs 17-23 160 mg 2 drprs 1 tsp 2 tabs 24-30 240 mg 3 drprs 1 1/2 tsp 3 tabs 30-35 320 mg 2 tsp 4 tabs 36-41 360 mg 2 1/4 tsp 4 1/2 tabs 42-47 400 mg 2 1/2 tsp 5 tabs 48-53 480 mg 3 tsp 6 tabs 54-59 520 mg 3 1/4 tsp 6 1/2 tabs 60-64 560 mg 3 1/2 tsp 7 tabs 65-70 600 mg 3 3/4 tsp 7 1/2 tabs 71-76 640 mg 4 tsp 8 tabs 77-82 720 mg 4 1/2 tsp 9 tabs 83-88 800 mg 5 tsp 10 tabs >89 pounds or adults 650 mg to 900 mg Acetaminophen can be repeated every four hours. Maximum dose not to exceed 4000 mg a day. These maximum recommended dosages are slightly higher than the dosages written on the product container, but these dosages are very safe and below the toxic dosage for acetaminophen. ICE PACKS: Apply ice packs frequently against the painful area. Many different schedules are recommended, such as "20 minutes on, 20 minutes off" or "one hour ice, two hours rest." If you need to work, you may need to go longer between ice treatments. You should plan to have the area ice packed AT LEAST one fourth of the time. The ice should be applied over the wrap, tape, or splint, or over a layer of cloth -- not directly against the skin. Some ice bags have a built-in cloth and can be put directly on the skin. WARM PACKS: After approximately two days, apply gentle heat (such as a heating pad or hot water bottle) for about 20 to 30 minutes about every two hours -- at least four times daily. Warmth and elevation will help you make a more rapid recovery , and will ease the pain considerably. Do not use HOT heat, and never apply heat for longer than 30 minutes. The continuous heat can invisibly damage skin and muscles -- even when no burn is seen on the surface. Damaged muscles can make you MORE sore. FOLLOW-UP CARE: If you have been referred to a physician for follow-up care, call the physician s office for an appointment as you were instructed or within the next two days. If you experience worsening or a significant change in your symptoms, notify the physician immediately or return to the Emergency Department at any time for re-evaluation. Referrals: AURA HARRISON MD [Primary Care Provider] - Follow up tomorrow RAVINDRA CORBIN DO [ACTIVE STAFF] - Follow up as needed
--- NOTE | 2017-11-13 16:05 | RADIOLOGY REPORT (SQ) ---
EXAM DESCRIPTION: HAND LEFT 3 VIEWS COMPLETED DATE/TIME: 11/13/2017 3:53 pm REASON FOR STUDY: pain started while cleaning refrigerator COMPARISON: 12/05/2013 EXAM PARAMETERS: NUMBER OF VIEWS: Three views. TECHNIQUE: AP, lateral and oblique radiographic images acquired of the left hand. LIMITATIONS: None. FINDINGS: MINERALIZATION: Normal. BONES: No acute fracture or dislocation. No worrisome bone lesions. JOINTS: No effusions. SOFT TISSUES: No soft tissue swelling. No foreign body. OTHER: No other significant finding. IMPRESSION: NEGATIVE STUDY OF THE LEFT HAND. NO RADIOGRAPHIC EVIDENCE OF ACUTE INJURY. TECHNICAL DOCUMENTATION: JOB ID: [id number] [employer]- All Rights Reserved Reading location - IP/workstation name: [email or web address]
[2017-11-13 16:14] VITALS: BP 113/74
== END 2017-11-13 16:22 | disposition home or self-care (01) ==
LOC: ER 15:08
DX: M79.645 Pain in left finger(s) (principal)
CPT/HCPCS: 99283; 73130; J3490

== ENCOUNTER 2018-01-23 08:47 | Emergency (ER) | payer MEDICAID ==
--- NOTE | 2018-01-23 09:21 | ER Document Report ---
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 Patient states that these things happen all the time for her because of her connective tissue disorder. Patient states that she has not noticed any obvious swelling or bruising. Patient states that she is still able to ambulate, but does have a limp at times. No other concerns or complaints. Denies any headache, fever, URI, sore throat, chest pain, palpitations, syncope, cough, shortness of breath, wheeze, dyspnea, abdominal pain, nausea/vomiting/diarrhea, urinary retention, dysuria, hematuria, numbness/ tingling, muscle paralysis/weakness, or rash. - ROS Systems Reviewed and Negative: Yes All other systems reviewed and negative - REPRODUCTIVE Reproductive: DENIES: : Past Medical History - Social History Smoking Status: Never Smoker Family History: Reviewed & Not Pertinent, Other - Patient states she does not know her father's family does not know his history Pulmonary Medical History: Reports: Hx Bronchitis Renal/ Medical History: Denies: Hx Peritoneal Dialysis Musculoskeletal Medical History: Reports Hx Musculoskeletal Deformity, Reports Hx Musculoskeletal Trauma Psychiatric Medical History: Reports: Hx Anxiety, Hx Attention Deficit Hyperactivity Disorder - Anxiety, Hx Depression Traumatic Medical History: Reports: Hx Fractures - Immunizations Immunizations up to date: Yes Hx Diphtheria, Pertussis, Tetanus Vaccination: Yes Vertical Provider Document - CONSTITUTIONAL Agree With Documented VS: Yes Notes: PHYSICAL EXAMINATION: GENERAL: Well-appearing, well-nourished and in no acute distress. LUNGS: Breath sounds clear to auscultation bilaterally and equal. No wheezes rales or rhonchi. HEART: Regular rate and rhythm without murmurs, rubs, gallops. Musculoskeletal: Lt foot/ankle: FROM to passive/active. Strength 5+/5. N/V intact distal. + tenderness to the lateral malleolus and area of the ATFL. No bony tenderness of the foot. Achilles intact. Extremities: No cyanosis, clubbing, or edema b/l. Peripheral pulses 2+. Capillary refill less than 3 seconds. NEUROLOGICAL: Normal speech, limping gait. Normal sensory, motor exams PSYCH: Normal mood, normal affect. SKIN: Warm, Dry, normal turgor, no rashes or lesions noted. - INFECTION CONTROL TRAVEL OUTSIDE OF THE [place] IN LAST 30 DAYS: No Course - Re-evaluation Re-evalutation: 01/23/18 09:50 Patient is an afebrile, well-hydrated, 22-year-old female who presents to the ED with left ankle pain which I suspect to be a sprain versus strain. Vitals are acceptable without any significant tachycardia, tachypnea, or hypoxia. PE is otherwise unremarkable for any neurovascular compromise, obvious tendon/ ligament rupture, obvious fracture/dislocation, septic joint. X-ray was unremarkable for any acute pathology. Ankle stirrup and crutches were provided today. Patient declined any Tylenol or ice. Patient is nontoxic-appearing. Patient is able to ambulate and weight-bear although she is limping. No other labs or imaging warranted at this time based on H&P. Conservative measures otherwise for symptoms. Recheck with your PCM in 3-5 days. Consider consult orthopedics. Return to the ED with any worsening/concerning symptoms otherwise as reviewed in discharge. Patient is in agreement. - Vital Signs Vital signs: Temp Pulse Resp BP Pulse Ox 97.8 F 97 14 116/68 100 01/23/18 08:50 01/23/18 08:50 01/23/18 08:50 01/23/18 08:50 01/23/18 08:50 Discharge - Discharge Clinical Impression: Left ankle pain Qualifiers: Chronicity: acute Qualified Code(s): M25.572 - Pain in left ankle and joints of left foot Condition: Stable Disposition: HOME, SELF-CARE Instructions: Ankle Stirrup Splint ([facility]), Use of Crutches ([facility]), Ice & Elevation ([facility]) Additional Instructions: Rest, Ice, Compression, Elevation Use crutches/splint as directed Tylenol/ibuprofen as needed Light stretches daily Strength exercises as able Moist heat and massage may help F/u with your PCP in 3-5 days for a recheck Consider consult(s) with Orthopedics/physical therapy for ongoing/worsening symptoms Return to the ED with any worsening symptoms and/or development of fever, headache, chest pain, palpitations, syncope, shortness of breath, trouble breathing, abdominal pain, n/v/d, muscle weakness/paralysis, numbness/tingling, swelling, redness, or other worsening symptoms that are concerning to you. Referrals: EPPERLY,AURA T, MD [Primary Care Provider] - Follow up as needed [facility] [Provider Group] - Follow up as needed
--- NOTE | 2018-01-23 09:47 | RADIOLOGY REPORT (SQ) ---
EXAM DESCRIPTION: ANKLE LEFT COMPLETE COMPLETED DATE/TIME: 01/23/2018 9:32 am REASON FOR STUDY: left ankle pain history of connective tissue disorder. posterolateral ankle pain COMPARISON: None. NUMBER OF VIEWS: Three views. TECHNIQUE: AP, lateral, and oblique radiographic images acquired of the left ankle. LIMITATIONS: None. FINDINGS: MINERALIZATION: Normal. BONES: No acute fracture or dislocation. No worrisome bone lesions. JOINTS: No effusions. SOFT TISSUES: No soft tissue swelling. No foreign body. OTHER: No other significant finding. IMPRESSION: NEGATIVE STUDY OF THE LEFT ANKLE. NO RADIOGRAPHIC EVIDENCE OF ACUTE INJURY. TECHNICAL DOCUMENTATION: JOB ID: [id number] [employer]- All Rights Reserved Reading location - IP/workstation name: [email or web address]
[2018-01-23 10:25] VITALS: BP 120/69
== END 2018-01-23 10:24 | disposition home or self-care (01) ==
LOC: ER 08:47
DX: M25.572 Pain in left ankle and joints of left foot (principal); Q79.6 Ehlers-Danlos syndromes
CPT/HCPCS: 99283; 73610; L1902

== ENCOUNTER 2018-02-02 17:08 | Emergency (ER) | payer MEDICAID ==
--- NOTE | 2018-02-02 18:27 | ER Document Report ---
ED Extremity Problem, Lower - General Chief Complaint: Ankle Injury Stated Complaint: LEFT ANKLE INJURY Time Seen by Provider: 02/02/18 18:06 Mode of Arrival: Ambulatory Notes: Patient is a 22-year-old female comes back to the emergency room with complaint of left ankle pain. States she was seen here 1 week ago she states had an x- ray she was thrown in a stirrup splint and sent home. She also adds that she applied a postop shoe to the bottom so when she is out and about she has more support. She states that this morning she went to get out of bed and as she turned herself over on her to her side to emerge from the bed when she put her left foot down on the floor she felt a ripping sensation in the back of the foot and it comes around the lateral malleolus to the front top part of the foot that is in excruciating pain. States it hurts mostly in the back of it by the heel but that the pain raised radiating around is unbearable. Denies any other injuries and has no medical history with exception of a connective tissue disorder. TRAVEL OUTSIDE OF THE [place] IN LAST 30 DAYS: No - HPI Location: Ankle, Foot Occurred: This morning Where: Home Onset/Duration: Sudden, Gradual, Worse Quality of pain: Sharp, Stabbing, Throbbing Severity: Severe Pain Level: 4 Context: Other - Stirrup splint in place Recent injury: Yes Exacerbated by: Movement, Walking Relieved by: Nothing - Related Data Allergies/Adverse Reactions: nickel Allergy (Verified 02/02/18 17:09) No Known Drug Allergies Allergy (Verified 02/02/18 17:09) electrode gel Allergy (Uncoded 02/02/18 17:09) FISH Allergy (Uncoded 02/02/18 17:09) Past Medical History - General Information source: Patient - Social History Smoking Status: Never Smoker Cigarette use (# per day): No Chew tobacco use (# tins/day): No Smoking Education Provided: No Frequency of alcohol use: None Drug Abuse: None Lives with: Family Family History: Reviewed & Not Pertinent, Other - Patient states she does not know her father's family does not know his history Patient has suicidal ideation: No Patient has homicidal ideation: No Pulmonary Medical History: Reports: Hx Bronchitis Renal/ Medical History: Denies: Hx Peritoneal Dialysis Musculoskeletal Medical History: Reports Hx Musculoskeletal Deformity, Reports Hx Musculoskeletal Trauma Psychiatric Medical History: Reports: Hx Anxiety, Hx Attention Deficit Hyperactivity Disorder - Anxiety, Hx Depression Traumatic Medical History: Reports: Hx Fractures - Immunizations Immunizations up to date: Yes Hx Diphtheria, Pertussis, Tetanus Vaccination: Yes Review of Systems - Review of Systems Constitutional: No symptoms reported EENT: No symptoms reported Cardiovascular: No symptoms reported Respiratory: No symptoms reported Gastrointestinal: No symptoms reported Genitourinary: No symptoms reported Female Genitourinary: No symptoms reported Musculoskeletal: Muscle stiffness, Ankle swelling, Other - Foot pain Skin: No symptoms reported Hematologic/Lymphatic: No symptoms reported Neurological/Psychological: No symptoms reported -: Yes All other systems reviewed and negative Physical Exam - Vital signs Vitals: Temp Pulse Resp BP Pulse Ox 98.3 F 112 H 16 119/68 99 02/02/18 17:12 02/02/18 17:12 02/02/18 17:12 02/02/18 17:12 02/02/18 17:12 Interpretation: Tachycardic - Notes Notes: Patient is a well-nourished well-developed 22-year-old female. No apparent distress - General General appearance: Appears well, Alert In distress: None - HEENT Head: Normocephalic, Atraumatic Eyes: Normal - Respiratory Respiratory status: No respiratory distress Chest status: Nontender Breath sounds: Normal. No: Rales, Rhonchi, Stridor, Wheezing Chest palpation: Normal - Cardiovascular Rhythm: Regular Heart sounds: Normal auscultation - Back Back: Nontender. No: Tender, Deformity/step-off, CVA tenderness, Vertebra tenderness, Scars, Wounds - Extremities General upper extremity: Normal inspection, Nontender, Normal ROM, Normal strength General lower extremity: Tender, Normal color, Normal ROM, Normal temperature, Normal weight bearing. No: Normal strength, Gomez's sign Ankle: Tender. No: Abrasion, Deformity, Ecchymosis, Edema, Instability, Laceration, Limited ROM, Positive Mckeon's test, Unable to bear weight Foot: Tender. No: Deformity, Ecchymosis, Edema, Instability, Laceration, Metatarsal compress. pain, Nail injury, Navicular tenderness, No evidence of FB , Puncture wound, Tender 5th metatarsal - Neurological Neuro grossly intact: Yes Cognition: Normal Orientation: AAOx4 [place] Coma Scale Eye Opening: Spontaneous [place] Coma Scale Verbal: Oriented [place] Coma Scale Motor: Obeys Commands [place] Coma Scale Total: 15 Speech: Normal - Skin Skin Temperature: Warm Skin Moisture: Dry Skin Color: Normal, [place] Course - Re-evaluation Re-evalutation: 02/02/18 19:51 Patient's x-rays came back negative. In discussion with patient and asked her if she wanted anything for pain and she declined she is to that she has a connective tissue disorder and that the ibuprofen should help more than anything else. She also says because she has to drive home she does not want anything. She has her wheelchair and her crutches here at the hospital and will use those until she finds her orthopedist. Patient is seeing Dr. Boyce recently for hand issues she had and she liked him. She will try contacting his office to see if he will follow her on this foot. 02/02/18 19:56 Just as an outpatient patient's chart up to send her home she has a nurse for a 6 pack of hydrocodone taken just in case the ibuprofen did not work for her. - Vital Signs Vital signs: Temp Pulse Resp BP Pulse Ox 98.3 F 112 H 16 119/68 99 02/02/18 17:12 02/02/18 17:12 02/02/18 17:12 02/02/18 17:12 02/02/18 17:12 Discharge - Discharge Clinical Impression: Strain of left foot Qualifiers: Encounter type: initial encounter Qualified Code(s): S96.912A - Strain of unspecified muscle and tendon at ankle and foot level, left foot, initial encounter Left ankle strain Qualifiers: Encounter type: sequela Qualified Code(s): S96.912S - Strain of unspecified muscle and tendon at ankle and foot level, left foot, sequela Condition: Stable Instructions: Ankle Stirrup Splint ([facility]), Use of Crutches ([facility]), Ice & Elevation ([facility]), Soft Ankle Splint ([facility]), Sprained Ankle ([facility]), Tendon Strain ( [facility]) Additional Instructions: Home and continue using the stirrup splint. You may also use the postop shoe you are to have on for ventures outside. As we discussed you need to follow-up with orthopedic as soon as possible. You may need an MRI at some point to see what is happening with this. You may talk to your primary care doctor he may be able to order one for you and then follow-up with orthopedist or see an orthopedist and get a referral for an MRI if he believes you need it. Continue with the ice and moist heat alternating. Return to ER if you have any concerns or problems. Referrals: AURA HARRISON MD [Primary Care Provider] - Follow up as needed
--- NOTE | 2018-02-02 19:16 | RADIOLOGY REPORT (SQ) ---
EXAM DESCRIPTION: FOOT LEFT COMPLETE COMPLETED DATE/TIME: 02/02/2018 6:50 pm REASON FOR STUDY: pain COMPARISON: None. EXAM PARAMETERS: NUMBER OF VIEWS: Three views. TECHNIQUE: AP, lateral and oblique radiographic images acquired of the left foot. LIMITATIONS: None. FINDINGS: MINERALIZATION: Normal. BONES: No acute fracture or dislocation. No worrisome bone lesions. JOINTS: No effusion. SOFT TISSUES: No significant soft tissue swelling. No radiopaque foreign body. OTHER: No other significant finding. IMPRESSION: NO FRACTURE. TECHNICAL DOCUMENTATION: JOB ID: [id number] [place]-72 2010 [employer]- All Rights Reserved Reading location - IP/workstation name: [email or web address]
--- NOTE | 2018-02-02 19:17 | RADIOLOGY REPORT (SQ) ---
EXAM DESCRIPTION: ANKLE LEFT COMPLETE COMPLETED DATE/TIME: 02/02/2018 6:50 pm REASON FOR STUDY: pain with ripping COMPARISON: None. EXAM PARAMETERS: NUMBER OF VIEWS: Three views. TECHNIQUE: AP, lateral and oblique radiographic images acquired of the left ankle. LIMITATIONS: None. FINDINGS: MINERALIZATION: Normal. BONES: No acute fracture or dislocation. No worrisome bone lesions. JOINTS: No effusion. SOFT TISSUES: No significant soft tissue swelling. No radiopaque foreign body. OTHER: No other significant finding. IMPRESSION: NO FRACTURE. TECHNICAL DOCUMENTATION: JOB ID: [id number] [id number] 2010 [employer]- All Rights Reserved Reading location - IP/workstation name: [email or web address]
[2018-02-02] MEDS ORDERED: HYDROCODONE/ACETAMINOPHEN 5-325 MG (6 TAB/ER DISP) PO PRN (19:57)
[2018-02-02 20:00] VITALS: BP 109/61
== END 2018-02-02 20:29 | disposition home or self-care (01) ==
LOC: ER 17:08
DX: S96.912A Strain of unspecified muscle and tendon at ankle and foot level, left foot, initial encounter (principal); M25.572 Pain in left ankle and joints of left foot; X58.XXXA Exposure to other specified factors, initial encounter; Z91.048 Other nonmedicinal substance allergy status; Z91.013 Allergy to seafood
CPT/HCPCS: 99283

== ENCOUNTER 2018-03-03 15:38 | Emergency (ER) | payer MEDICAID ==
[2018-03-03] MEDS ORDERED: ASPIRIN 81 MG TABLET, CHEWABLE PO ONE (17:10)
--- NOTE | 2018-03-03 17:12 | ER Document Report ---
ED Medical Screen (RME) - General Chief Complaint: Chest Pain Stated Complaint: CHEST PRESSURE Time Seen by Provider: 03/03/18 17:10 Notes: 22 years old female with a history of multiple cardiac history and evaluation, presents today with left-sided chest pain difficulty in breathing. She also has a history of severe anxiety. On examination-not seems to be in any acute distress lungs clear cardiovascular system normal S1-S2. TRAVEL OUTSIDE OF THE [place] IN LAST 30 DAYS: No - Related Data Allergies/Adverse Reactions: nickel Allergy (Verified 03/03/18 15:41) No Known Drug Allergies Allergy (Verified 02/02/18 17:09) electrode gel Allergy (Uncoded 02/02/18 17:09) FISH Allergy (Uncoded 02/02/18 17:09) Past Medical History - Social History Chew tobacco use (# tins/day): No Frequency of alcohol use: None Drug Abuse: None Pulmonary Medical History: Reports: Hx Bronchitis Renal/ Medical History: Denies: Hx Peritoneal Dialysis Musculoskeltal Medical History: Reports Hx Musculoskeletal Deformity, Reports Hx Musculoskeletal Trauma Psychiatric Medical History: Reports: Hx Anxiety, Hx Attention Deficit Hyperactivity Disorder - Anxiety, Hx Depression Traumatic Medical History: Reports: Hx Fractures - Immunizations Immunizations up to date: Yes Hx Diphtheria, Pertussis, Tetanus Vaccination: Yes History of Influenza Vaccine for 02/2017 - 07/2017 Season: No Physical Exam - Vital signs Vitals: Temp Pulse Resp BP Pulse Ox 98.6 F 95 14 117/74 99 03/03/18 15:44 03/03/18 15:44 03/03/18 15:44 03/03/18 15:44 03/03/18 15:44 Course - Vital Signs Vital signs: Temp Pulse Resp BP Pulse Ox 98.6 F 95 14 117/74 99 03/03/18 15:44 03/03/18 15:44 03/03/18 15:44 03/03/18 15:44 03/03/18 15:44 Doctor's Discharge - Discharge Referrals: KAI GARDNER MD [Primary Care Provider] - Follow up as needed
[2018-03-03 18:00] LABS: ABSOLUTE EOSINOPHILS # (AUTO) 0.1 10^3/uL (0.0-0.6); ABSOLUTE LYMPHOCYTES (AUTO) 2.7 10^3/uL (0.5-4.7); ABSOLUTE MONOCYTES (AUTO) 0.4 10^3/uL (0.1-1.4); BASOPHILS % (AUTO) 0.5 % (0-2); EOSINOPHILS % (AUTO) 0.7 % (0-6); HEMATOCRIT 41.3 % (36.0-47.0); HEMOGLOBIN 14.1 g/dL (12.0-15.5); LYMPHOCYTES % (AUTO) 26.7 % (13-45); MEAN CORPUSCULAR HEMOGLOBIN 31.3 pg (27.0-33.4); MEAN CORPUSCULAR HGB CONC 34.1 g/dL (32.0-36.0); MEAN CORPUSCULAR VOLUME 92 fl (80-97); MONOCYTES % (AUTO) 3.6 % (3-13); PLATELET COUNT 350 10^3/uL (150-450); RED BLOOD COUNT 4.51 10^6/uL (3.72-5.28); RED CELL DISTRIBUTION WIDTH 12.1 % (11.5-14.0); SEGMENTED NEUTROPHILS % (AUTO) 68.5 % (42-78); TOTAL CELLS COUNTED % (AUTO) 100 %; WHITE BLOOD COUNT 10.3 10^3/uL (4.0-10.5)
--- NOTE | 2018-03-03 18:06 | ER Document Report ---
ED Cardiac - General TRAVEL OUTSIDE OF THE [place] IN LAST 30 DAYS: No - HPI Patient complains to provider of: Chest pain Was the onset of pain: Sudden Is the pain a: Chronic problem Quality of pain: Sharp Chest pain radiation location: Left arm Severity now: None Severity at worst: Moderate Positive cardiac history: Yes Associated symptoms: Palpitations Exacerbated by: Denies Relieved by: Nothing <SUMA ROTHMAN - Last Filed: 03/03/18 18:31> <SUMA AGUERO - Last Filed: 03/03/18 22:27> - General Chief Complaint: Chest Pain Stated Complaint: CHEST PRESSURE Time Seen by Provider: 03/03/18 17:10 - HPI Notes: Patient is a 22-year-old female that presents to the emergency department for chief complaint of chest pain. Patient has extensive cardiac history including pots, dysrhythmias, valvular regurgitation and dysautonomia. She presents for left-sided chest pain. She describes it as sharp underneath her left breast and left lateral chest wall. The pain is intermittent and lasts 30 seconds to 1 minute at a time. Currently the pain is not present. Patient states that she is scheduled for a Holter monitor to be placed tomorrow. She reports a recent echo but is unsure what those results were. Past Medical History: Earliest Danlos syndrome, pots, dysautonomia, dysrhythmias Past Surgical History: Reviewed in chart Social History: Denies drugs alcohol and tobacco Family History: Reviewed and noncontributory for presenting illness Allergies: Reviewed, see documented allergy list. REVIEW OF SYSTEMS: CONSTITUTIONAL : No fever No chills No diaphoresis No recent illness EENT: No vision changes No congestion No sore throat CARDIOVASCULAR: chest pain No palpitations RESPIRATORY: No shortness of breath No cough No difficulty breathing GASTROINTESTINAL: No abdominal pain No nausea No vomiting No diarrhea GENITOURINARY: No dysuria No hematuria No difficulty urinating MUSCULOSKELETAL: No back pain No leg pain No arm pain SKIN: No rashes No lesions LYMPHATIC: No swollen, enlarged glands. NEUROLOGICAL: No lightheadedness No headache No weakness No paresthesias PSYCHIATRIC: No anxiety No depression PHYSICAL EXAMINATION: Vital signs reviewed, nursing noted reviewed. GENERAL: Well-appearing, well-nourished and in no acute distress. HEAD: Atraumatic, normocephalic. EYES: Eyes appear normal, extraocular movements intact, sclera anicteric, conjunctiva are normal. ENT: nares patent, oropharynx clear without exudates. Moist mucous membranes. NECK: Normal range of motion, supple without lymphadenopathy LUNGS: Breath sounds clear to auscultation bilaterally and equal. No wheezes rales or rhonchi. HEART: Regular rate and rhythm without murmurs ABDOMEN: Soft, nontender, normoactive bowel sounds. No rebound, guarding, or rigidity. No masses appreciated. EXTREMITIES: Nontender, good range of motion, no pitting or edema. NEUROLOGICAL: No focal neurological deficits. Moves all extremities spontaneously Motor and sensory grossly intact on exam. PSYCH: Normal mood, normal affect. SKIN: Warm, Dry, normal turgor, no rashes or lesions noted on exposed skin (SUMA ROTHMAN) - Related Data Allergies/Adverse Reactions: nickel Allergy (Verified 03/03/18 15:41) No Known Drug Allergies Allergy (Verified 02/02/18 17:09) electrode gel Allergy (Uncoded 02/02/18 17:09) FISH Allergy (Uncoded 02/02/18 17:09) Past Medical History - Social History Smoking Status: Never Smoker Chew tobacco use (# tins/day): No Frequency of alcohol use: None Drug Abuse: None Family History: Reviewed & Not Pertinent, Other Patient has suicidal ideation: No Patient has homicidal ideation: No Pulmonary Medical History: Reports: Hx Bronchitis Renal/ Medical History: Denies: Hx Peritoneal Dialysis Musculoskeletal Medical History: Reports Hx Musculoskeletal Deformity, Reports Hx Musculoskeletal Trauma Psychiatric Medical History: Reports: Hx Anxiety, Hx Attention Deficit Hyperactivity Disorder - Anxiety, Hx Depression Traumatic Medical History: Reports: Hx Fractures - Immunizations Immunizations up to date: Yes Hx Diphtheria, Pertussis, Tetanus Vaccination: Yes <SUMA ROTHMAN - Last Filed: 03/03/18 18:31> Review of Systems <SUMA ROTHMAN - Last Filed: 03/03/18 18:31> <SUMA AGUERO - Last Filed: 03/03/18 22:27> - Review of Systems Notes: dictated (SUMA ROTHMAN) Physical Exam <SUMA ROTHMAN - Last Filed: 03/03/18 18:31> <SUMA AGUERO - Last Filed: 03/03/18 22:27> - Vital signs Vitals: Temp Pulse Resp BP Pulse Ox 98.6 F 95 14 117/74 99 03/03/18 15:44 03/03/18 15:44 03/03/18 15:44 03/03/18 15:44 03/03/18 15:44 - Notes Notes: dictated (SUMA ROTHMAN) Course - Laboratory Result Diagrams: 03/03/18 17:44 03/03/18 17:44 <SUMA ROTHMAN - Last Filed: 03/03/18 18:31> - Laboratory Result Diagrams: 03/03/18 17:44 03/03/18 17:44 <SUMA AGUERO - Last Filed: 03/03/18 22:27> - Re-evaluation Re-evalutation: 03/03/18 18:11 Vitals reviewed. Nursing notes reviewed. Patient has a significant cardiac history which I discussed with Dr. Monroe. We reviewed her stress test results from 02/2017 which were normal. Patient also had recent echo which showed some valvular regurgitation, and EF of 52 and other heart wall abnormalities. EKG shows no acute ischemia or dysrhythmia. 03/03/18 18:13 Chest x-ray shows no widened mediastinum, patient's presentation is not consistent with aortic dissection. 03/03/18 18:32 Patient's lab work including troponin is normal. Dr. Monroe does not feel patient needs to be admitted to the hospital if her second troponin is also normal. delta troponin ordered for 4 hours after initial troponin. Plan to discharge home if delta troponin is negative. Patient will follow with Dr. Monroe in the office in the next few days for reevaluation. She will return tomorrow morning for Holter monitor placement as already scheduled. Laboratory 03/03/18 03/03/18 03/03/18 17:44 17:44 17:44 WBC 10.3 RBC 4.51 Hgb 14.1 Hct 41.3 MCV 92 MCH 31.3 MCHC 34.1 RDW 12.1 Plt Count 350 Seg Neutrophils % 68.5 Lymphocytes % 26.7 Monocytes % 3.6 Eosinophils % 0.7 Basophils % 0.5 Absolute Neutrophils 7.0 Absolute Lymphocytes 2.7 Absolute Monocytes 0.4 Absolute Eosinophils 0.1 Absolute Basophils 0.0 Sodium 142.2 Potassium 4.2 Chloride 105 Carbon Dioxide 21 L Anion Gap 16 BUN 16 Creatinine 0.67 Est GFR ( Amer) > 60 Est GFR (Non-Af Amer) > 60 Glucose 87 Calcium 9.6 Total Bilirubin 0.3 Direct Bilirubin 0.1 Neonat Total Bilirubin Not Reportable Neonat Direct Bilirubin Not Reportable Neonat Indirect Bili Not Reportable AST 18 ALT 18 Alkaline Phosphatase 47 Creatine Kinase Cancelled CK-MB (CK-2) Cancelled Troponin I < 0.012 Total Protein 8.2 Albumin 5.0 (SUMA ROTHMAN) 03/03/18 22:26 Repeat troponin negative, will be discharged home as per plan discussed with Dr. Monroe. (SUMA AGUERO) - Vital Signs Vital signs: Temp Pulse Resp BP Pulse Ox 97.6 F 95 18 107/66 97 03/03/18 19:01 03/03/18 15:44 03/03/18 19:01 03/03/18 19:01 03/03/18 19:01 - Laboratory Laboratory results interpreted by me: 03/03/18 17:44 Carbon Dioxide 21 L - EKG Interpretation by Me Additional EKG results interpreted by me: 03/03/18 18:05 interpreted by myself [id number]: NSR, rate 93, normal axis, no ectopy, no ST elevation. (SUMA ROTHMAN) Discharge <SUMA ROTHMAN - Last Filed: 03/03/18 18:31> <SUMA AGUERO - Last Filed: 03/03/18 22:27> - Discharge Clinical Impression: Chest pain Qualifiers: Chest pain type: unspecified Qualified Code(s): R07.9 - Chest pain, unspecified Condition: Stable Disposition: HOME, SELF-CARE Instructions: Chest Pain of Unclear Cause ([facility]) Additional Instructions: Please return to the emergency department if you have any worsening, or concern of your symptoms. Please return to the emergency department if you develop chest pain, difficulty breathing, severe abdominal pain, or ongoing vomiting. Please follow-up with your primary care physician in 2-3 days and any other recommended physicians. If prescribed, take all medications as directed. If you have any questions or concerns do not hesitate to return the emergency department for evaluation. Return in the morning for Holter monitor placement as already scheduled Referrals: KAI MONROE MD [Primary Care Provider] - Follow up in 3-5 days
[2018-03-03 18:12] LABS: ALANINE AMINOTRANSFERASE 18 U/L (9-52); ALKALINE PHOSPHATASE 47 U/L (38-126); ANION GAP 16 (5-19); ASPARTATE AMINO TRANSFERASE 18 U/L (14-36); BILIRUBIN,DIRECT 0.1 mg/dL (0.0-0.4); BILIRUBIN,TOTAL 0.3 mg/dL (0.2-1.3); BLOOD UREA NITROGEN 16 mg/dL (7-20); CALCIUM 9.6 mg/dL (8.4-10.2); CARBON DIOXIDE 21 mmol/L (22-30); CHLORIDE 105 mmol/L (98-107); GLUCOSE 87 mg/dL (75-110); POTASSIUM 4.2 mmol/L (3.6-5.0); SODIUM 142.2 mmol/L (137-145); TOTAL PROTEIN 8.2 g/dL (6.3-8.2)
--- NOTE | 2018-03-03 18:38 | RADIOLOGY REPORT (SQ) ---
EXAM DESCRIPTION: CHEST SINGLE VIEW COMPLETED DATE/TIME: 03/03/2018 6:16 pm REASON FOR STUDY: chest pain COMPARISON: June 2017 EXAM PARAMETERS: NUMBER OF VIEWS: One view. TECHNIQUE: Single frontal radiographic view of the chest acquired. RADIATION DOSE: NA LIMITATIONS: None. FINDINGS: LUNGS AND PLEURA: No opacities, masses or pneumothorax. No pleural effusion. MEDIASTINUM AND HILAR STRUCTURES: No masses. Contour normal. HEART AND VASCULAR STRUCTURES: Heart normal in size. Normal vasculature. BONES: No acute findings. HARDWARE: None in the chest. OTHER: No other significant finding. IMPRESSION: NO ACUTE RADIOGRAPHIC FINDING IN THE CHEST. TECHNICAL DOCUMENTATION: JOB ID: [id number] [employer]- All Rights Reserved Reading location - IP/workstation name: [email or web address]
--- NOTE | 2018-03-03 21:55 | EKG REPORT ---
SEVERITY:- NORMAL ECG - SINUS RHYTHM : Confirmed by: Clemencia Paredes MD 03-Mar-2018 21:55:32
[2018-03-03 22:50] VITALS: BP 113/65
== END 2018-03-03 22:49 | disposition home or self-care (01) ==
LOC: ER 15:38
DX: R07.89 Other chest pain (principal); Z86.79 Personal history of other diseases of the circulatory system
CPT/HCPCS: 36415; 71045; 80053; 84484; 85025; 93005; 93010; 99285

== ENCOUNTER → 2018-03-18 | Outpatient (CLI) | payer MEDICAID ==
--- NOTE | 2018-03-18 12:40 | RADIOLOGY REPORT (SQ) ---
EXAM DESCRIPTION: C SP 3 VWS OR LESS COMPLETED DATE/TIME: 03/18/2018 12:29 pm REASON FOR STUDY: RADICULOPATHY, CERVICAL REGION M54.12 RADICULOPATHY, CERVICAL REGION pain radiati ng from right arm up to right-sided neck COMPARISON: None. NUMBER OF VIEWS: Three views. TECHNIQUE: AP, lateral and odontoid radiographic images acquired of the cervical spine. LIMITATIONS: None. FINDINGS: MINERALIZATION: Normal. ALIGNMENT: Anatomic. VERTEBRAE: Vertebral bodies of normal height. DISCS: No significant disc space narrowing. No large osteophytes. HARDWARE: None in the spine. SOFT TISSUES: No masses or calcifications. Lung apices clear. OTHER: No other significant finding. IMPRESSION: NO SIGNIFICANT RADIOGRAPHIC FINDING IN THE CERVICAL SPINE. TECHNICAL DOCUMENTATION: JOB ID: [id number] [employer]- All Rights Reserved Reading location - IP/workstation name: [email or web address]
== END ==
LOC: OD 11:56
PROVIDERS: ATTEND Nurse Practitioner Family
DX: M54.12 Radiculopathy, cervical region (principal)
CPT/HCPCS: 72040

== ENCOUNTER 2018-04-24 12:38 | Emergency (ER) | payer MEDICAID ==
[2018-04-24 12:44] VITALS: BP 120/75
[2018-04-24] MEDS ORDERED: PROCHLORPERAZINE MALEATE 10 MG TABLET PO ONE (13:03)
[2018-04-24] MEDS ORDERED: FAMOTIDINE 20 MG TABLET PO ONE (13:03)
[2018-04-24] MEDS ORDERED: DIPHENHYDRAMINE HCL 50 MG CAPSULE PO ONE (13:03)
--- NOTE | 2018-04-24 13:05 | ER Document Report ---
ED Medical Screen (RME) - General Chief Complaint: Nausea/Vomiting Stated Complaint: VOMITTING Time Seen by Provider: 04/24/18 12:58 Notes: 22-year-old female patient with history of airless Danlos syndrome. She reports a 2-day history of headaches, itching to her arms hands and anterior chest. She reports vomiting twice yesterday with blood she said less than 1 cup. She also vomited about 1 hour ago but was only blood-tinged. She is on control pills, and took a home test 5 days ago which was negative. Last menstrual period was about a month ago. I have greeted and performed a rapid initial assessment of this patient. A comprehensive ED assessment and evaluation of the patient, analysis of test results and completion of the medical decision making process will be conducted by additional ED providers. TRAVEL OUTSIDE OF THE [place] IN LAST 30 DAYS: No - Related Data Allergies/Adverse Reactions: nickel Allergy (Verified 03/03/18 15:41) No Known Drug Allergies Allergy (Verified 02/02/18 17:09) electrode gel Allergy (Uncoded 02/02/18 17:09) FISH Allergy (Uncoded 02/02/18 17:09) Past Medical History Pulmonary Medical History: Reports: Hx Bronchitis Renal/ Medical History: Denies: Hx Peritoneal Dialysis Musculoskeltal Medical History: Reports Hx Musculoskeletal Deformity, Reports Hx Musculoskeletal Trauma Psychiatric Medical History: Reports: Hx Anxiety, Hx Attention Deficit Hyperactivity Disorder - Anxiety, Hx Depression Traumatic Medical History: Reports: Hx Fractures - Immunizations Immunizations up to date: Yes Hx Diphtheria, Pertussis, Tetanus Vaccination: Yes History of Influenza Vaccine for 02/2017 - 07/2017 Season: No Physical Exam - Vital signs Vitals: Temp Pulse Resp BP Pulse Ox 98.9 F 106 H 14 120/75 99 04/24/18 12:42 04/24/18 12:42 04/24/18 12:42 04/24/18 12:42 04/24/18 12:42 Course - Vital Signs Vital signs: Temp Pulse Resp BP Pulse Ox 98.9 F 106 H 14 120/75 99 04/24/18 12:42 04/24/18 12:42 04/24/18 12:42 04/24/18 12:42 04/24/18 12:42 Doctor's Discharge - Discharge Referrals: GILBERT,STORMY, [employer]ER-C [Primary Care Provider] - Follow up as needed
[2018-04-24 13:54] LABS: ABSOLUTE BASOPHILS # (AUTO) 0.1 10^3/uL (0.0-0.2); ABSOLUTE LYMPHOCYTES (AUTO) 2.2 10^3/uL (0.5-4.7); ABSOLUTE MONOCYTES (AUTO) 0.3 10^3/uL (0.1-1.4); ABSOLUTE NEUT (AUTO) 4.8 10^3/uL (1.7-8.2); BASOPHILS % (AUTO) 0.9 % (0-2); EOSINOPHILS % (AUTO) 0.5 % (0-6); HEMATOCRIT 41.7 % (36.0-47.0); HEMOGLOBIN 14.3 g/dL (12.0-15.5); LYMPHOCYTES % (AUTO) 29.9 % (13-45); MEAN CORPUSCULAR HEMOGLOBIN 31.3 pg (27.0-33.4); MEAN CORPUSCULAR HGB CONC 34.3 g/dL (32.0-36.0); MEAN CORPUSCULAR VOLUME 91 fl (80-97); MONOCYTES % (AUTO) 3.9 % (3-13); PLATELET COUNT 350 10^3/uL (150-450); RED BLOOD COUNT 4.56 10^6/uL (3.72-5.28); RED CELL DISTRIBUTION WIDTH 12.1 % (11.5-14.0); SEGMENTED NEUTROPHILS % (AUTO) 64.8 % (42-78); TOTAL CELLS COUNTED % (AUTO) 100 %; WHITE BLOOD COUNT 7.4 10^3/uL (4.0-10.5)
[2018-04-24 14:06] LABS: ALANINE AMINOTRANSFERASE 13 U/L (9-52); ALKALINE PHOSPHATASE 37 U/L (38-126); ANION GAP 11 (5-19); ASPARTATE AMINO TRANSFERASE 20 U/L (14-36); BILIRUBIN,DIRECT 0.2 mg/dL (0.0-0.4); BILIRUBIN,TOTAL 0.3 mg/dL (0.2-1.3); BLOOD UREA NITROGEN 16 mg/dL (7-20); CALCIUM 9.7 mg/dL (8.4-10.2); CARBON DIOXIDE 25 mmol/L (22-30); CHLORIDE 104 mmol/L (98-107); GLUCOSE 98 mg/dL (75-110); POTASSIUM 4.6 mmol/L (3.6-5.0); SODIUM 140.1 mmol/L (137-145)
--- NOTE | 2018-04-24 14:35 | ER Document Report ---
ED General - General Chief Complaint: Nausea/Vomiting Stated Complaint: VOMITTING Time Seen by Provider: 04/24/18 12:58 Notes: Patient is a 22-year-old female who presents to the emergency department with a chief complaint of a rash, itching, vomiting, and headache. She states that she had symptoms yesterday, and today she was at her physical therapy appointment and did not feel any better. She is allergic to nickel, and states she normally has an immediate reaction to it. 2 days ago she was given a necklace from her boyfriend's mother and she does not know if her necklaces made of nickel. She has had this reaction before and took Benadryl for it. She is sexually active and is on control. She should have her next menstrual cycle next week. She has a medical history of Ehler danlos and multiple heart conditions in which she is in the process of being referred out to a specialist for her conditions. TRAVEL OUTSIDE OF THE [place] IN LAST 30 DAYS: No - Related Data Allergies/Adverse Reactions: nickel Allergy (Verified 03/03/18 15:41) No Known Drug Allergies Allergy (Verified 02/02/18 17:09) electrode gel Allergy (Uncoded 02/02/18 17:09) FISH Allergy (Uncoded 02/02/18 17:09) Past Medical History - Social History Smoking Status: Never Smoker Frequency of alcohol use: None Drug Abuse: None Family History: Reviewed & Not Pertinent, Other Patient has suicidal ideation: No Patient has homicidal ideation: No Pulmonary Medical History: Reports: Hx Bronchitis Renal/ Medical History: Denies: Hx Peritoneal Dialysis Musculoskeletal Medical History: Reports Hx Musculoskeletal Deformity, Reports Hx Musculoskeletal Trauma Psychiatric Medical History: Reports: Hx Anxiety, Hx Attention Deficit Hyperactivity Disorder - Anxiety, Hx Depression Traumatic Medical History: Reports: Hx Fractures - Immunizations Immunizations up to date: Yes Hx Diphtheria, Pertussis, Tetanus Vaccination: Yes Review of Systems - Review of Systems Notes: REVIEW OF SYSTEMS: CONSTITUTIONAL : Denies recent illness. Denies recent unintentional weight loss. Denies fever, chills, or sweats. EENT: Denies eye, ear, throat, or mouth pain, discharge, or symptoms. Denies nasal or sinus congestion. CARDIOVASCULAR: Denies chest pain. RESPIRATORY: Denies shortness of breath, cough, congestion, difficulty breathing, or wheezing. GASTROINTESTINAL: Denies nausea, vomiting, and diarrhea. Denies abdominal pain. Denies constipation. GENITOURINARY: Denies difficulty urinating, burning, blood in urine, urgency or frequency. MUSCULOSKELETAL: Denies neck and back pain. Denies joint pain or swelling. SKIN: See HPI HEMATOLOGIC : Denies easy bruising or bleeding. LYMPHATIC: Denies swollen, painful, enlarged glands. NEUROLOGICAL: See HPI PSYCHIATRIC: Denies stress, anxiety, alteration in sleep patterns, or d epression. All other systems reviewed and negative. Physical Exam - Vital signs Vitals: Temp Pulse Resp BP Pulse Ox 98.9 F 106 H 14 120/75 99 04/24/18 12:42 04/24/18 12:42 04/24/18 12:42 04/24/18 12:42 04/24/18 12:42 - Notes Notes: PHYSICAL EXAMINATION: GENERAL: Appears well, healthy, well-nourished, no acute distress. HEAD: Normocephalic, atraumatic. EYES: PERRL, conjunctiva normal, all extraocular movements intact, sclera nonicteric ENT: Moist mucous membranes. NECK: Supple, no noticeable swelling, redness, rash. Normal range of motion. LUNGS: Equal breath sounds bilaterally and clear to auscultation. No wheezes rales or rhonchi. CARDIOVASCULAR: S1-S2, regular rate, regular rhythm. Radial pulses 2+, normal. ABDOMEN: Normoactive bowel sounds. Soft, nontender, no guarding, no rebound tenderness, and no masses palpated. EXTREMITIES: Normal strength and range of motion, no pitting or edema. No cyanosis. NEUROLOGICAL: Moves all extremities upon command. Strength 5/5 in all extremities. PSYCH: Normal mood, normal affect. SKIN: Warm, dry. Mild rash. No lesions, ulcerations noted. Normal skin turgor. Course - Re-evaluation Re-evalutation: 04/24/18 14:36 Upon assessment, I advised the patient to take the necklace she had on and off since she is unsure if necklaces made of nickel. I also discussed her labs with her and that we will send a urine hCG to check for . She is in agreement. 04/24/18 15:20 Patient's labs are unremarkable. Patient is not . She will be given an epinephrine pen for any type of allergic reaction. She also be started on Pepcid 20 mg twice daily. I have advised her that she needs to see an coat feller in regards to her multiple allergies. She is in agreement's. Verbal discharge instructions were given to the patient. She verbalized understanding. She is stable for discharge. - Vital Signs Vital signs: Temp Pulse Resp BP Pulse Ox 98.9 F 106 H 14 120/75 99 04/24/18 12:42 04/24/18 12:42 04/24/18 12:42 04/24/18 12:42 04/24/18 12:42 - Laboratory Result Diagrams: 04/24/18 13:24 04/24/18 13:24 Laboratory results interpreted by me: 04/24/18 04/24/18 13:24 13:24 Alkaline Phosphatase 37 L Urine Nitrite POSITIVE H Ur Leukocyte Esterase TRACE H Discharge - Discharge Clinical Impression: Rash, Itching Vomiting Qualifiers: Vomiting type: unspecified Vomiting Intractability: non-intractable Nausea presence: with nausea Qualified Code(s): R11.2 - Nausea with vomiting, unspecified Condition: Stable Disposition: HOME, SELF-CARE Additional Instructions: You were seen today in the emergency department for vomiting, rash, and itching. You were given Benadryl to help with your symptoms. You are also being sent home with Zofran, medication for nausea. You may take this medication every 6 hours as needed for nausea or vomiting. If you have this reaction again, you ca n take Benadryl [id number] at home. If you have this reaction again, get short of breath, develop swelling around your lips, develop difficulty breathing, you can use the EpiPen that has been prescribed to you. If you use your EpiPen, come to the emergency department IMMEDIATELY. You have also been prescribed Pepcid, a medication that can be used for allergies. Follow-up with your primary care doctor in 3-4 days and be referred out to an environmental remediation specialist. If you develop a fever greater than 100.4 F, develop shortness of breath, or have any symptoms that are worrisome to you, please return to the emergency department. Prescriptions: Epinephrine [Auvi-Q] 0.3 mg IJ ASDIR PRN #1 auto.injct PRN Reason: Famotidine [Pepcid 20 mg Tablet] 20 mg PO BID #12 tablet Referrals: ALLI DE LOS SANTOS FNP-C [NO LOCAL MD] - Follow up in 3-5 days
[2018-04-24 14:40] LABS: APPEARANCE,URINE SLIGHTLY-CLOUDY; BILIRUBIN,URINE NEGATIVE (NEGATIVE); COLOR,URINE YELLOW; GLUCOSE, URINE NEGATIVE (NEGATIVE); KETONES,URINE NEGATIVE (NEGATIVE); LEUKOCYTE ESTERASE,URINE TRACE (NEGATIVE); NITRITE,URINE POSITIVE (NEGATIVE); PROTEIN,URINE NEGATIVE (NEGATIVE); UROBILINOGEN,URINE NEGATIVE mg/dL (<2.0)
[2018-04-24] MEDS ORDERED: ONDANSETRON ODT 4 MG TAB (6 TAB/ER DISP) PO PRN (15:37)
== END 2018-04-24 16:20 | disposition home or self-care (01) ==
LOC: ER 12:38
DX: R51 Headache (principal); R21 Rash and other nonspecific skin eruption; L29.9 Pruritus, unspecified; R11.2 Nausea with vomiting, unspecified; Z79.3 Long term (current) use of hormonal contraceptives
CPT/HCPCS: 99284; 36415; 85025; 81025; 80053; 81001; J3490 ×2; S0183

== ENCOUNTER 2018-06-04 15:43 | Emergency (ER) | payer MEDICAID ==
[2018-06-04 15:49] VITALS: BP 118/69
--- NOTE | 2018-06-04 16:29 | ER Document Report ---
HPI - HPI Time Seen by Provider: 06/04/18 16:23 Pain Level: 3 Notes: Patient is a 22-year-old female with no significant past medical history presents to the emergency department complaining of injury to her left great toe and second toe prior to arrival. Patient states that she slipped and hit her toes off of the covered in her kitchen. Patient states that she has had pain and tingling in those toes since then. Patient states that putting on a sock did hurt as well. The pain does not radiate. Denies any headache, fever, head injury, neck pain, changes in vision/speech/mentation/hearing, URI, sore throat, chest pain, palpitations, syncope, cough, shortness of breath, wheeze, dyspnea, abdominal pain, nausea/vomiting/diarrhea, urinary retention, dysuria, hematuria, back pain, loss of control of bowel or bladder, saddle anesthesia, muscle paralysis/weakness, or rash. - ROS Systems Reviewed and Negative: Yes All other systems reviewed and negative - REPRODUCTIVE Reproductive: DENIES: : - MUSCULOSKELETAL Musculoskeletal: REPORTS: Extremity pain - L great toe Past Medical History - Social History Smoking Status: Never Smoker Family History: Reviewed & Not Pertinent, Other Patient has suicidal ideation: No Patient has homicidal ideation: No Pulmonary Medical History: Reports: Hx Bronchitis Renal/ Medical History: Denies: Hx Peritoneal Dialysis Musculoskeletal Medical History: Reports Hx Musculoskeletal Deformity, Reports Hx Musculoskeletal Trauma Psychiatric Medical History: Reports: Hx Anxiety, Hx Attention Deficit Hyperactivity Disorder - Anxiety, Hx Depression Traumatic Medical History: Reports: Hx Fractures - Immunizations Immunizations up to date: Yes Hx Diphtheria, Pertussis, Tetanus Vaccination: Yes Vertical Provider Document - CONSTITUTIONAL Agree With Documented VS: Yes Notes: PHYSICAL EXAMINATION: GENERAL: Well-appearing, well-nourished and in no acute distress. LUNGS: Breath sounds clear to auscultation bilaterally and equal. No wheezes rales or rhonchi. HEART: Regular rate and rhythm without murmurs, rubs, gallops. Musculoskeletal: Lt foot/ankle: FROM to passive/active. Strength 5+/5. N/V intact distal. + tenderness to the 1st/2nd distal toes. + mild erythema w/o ecchymosis or deformity. Achilles intact. Extremities: No cyanosis, clubbing, or edema b/l. Peripheral pulses 2+. Capillary refill less than 3 seconds. NEUROLOGICAL: Normal speech, limping gait. Normal sensory, motor exams PSYCH: Normal mood, normal affect. SKIN: Warm, Dry, normal turgor, no rashes or lesions noted. - INFECTION CONTROL TRAVEL OUTSIDE OF THE [place] IN LAST 30 DAYS: No Course - Re-evaluation Re-evalutation: 06/04/18 17:11 Patient is an afebrile, well-hydrated, 22-year-old female who presents to the ED with left toe pain which I suspect to be a contusion vs sprain/strain. Vitals are acceptable without any significant tachycardia, tachypnea, or hypoxia. PE is otherwise unremarkable for any neurovascular compromise, obvious tendon/ligament rupture, obvious fracture/dislocation, septic joint. X-ray was unremarkable for any acute pathology. Patient declined any Tylenol or ice. Patient is nontoxic-appearing. Patient is able to ambulate and weight-bear al though she is limping. No other labs or imaging warranted at this time based on H&P. Conservative measures otherwise for symptoms. Recheck with your PCM in 3- 5 days. Consider consult orthopedics. Return to the ED with any worsening/concerning symptoms otherwise as reviewed in discharge. Patient is in agreement. - Vital Signs Vital signs: Temp Pulse Resp BP Pulse Ox 98.2 F 85 20 118/69 100 06/04/18 15:48 06/04/18 15:48 06/04/18 15:48 06/04/18 15:48 06/04/18 15:48 Discharge - Discharge Clinical Impression: Toe pain, left Condition: Stable Disposition: HOME, SELF-CARE Additional Instructions: Rest, Ice, Compression, Elevation Tylenol/ibuprofen as needed Light stretches daily Strength exercises as able Moist heat and massage may help F/u with your PCP in 3-5 days for a recheck Consider consult(s) with Orthopedics/physical therapy for ongoing/worsening symptoms Return to the ED with any worsening symptoms and/or development of fever, headache, chest pain, palpitations, syncope, shortness of breath, trouble breathing, abdominal pain, n/v/d, muscle weakness/paralysis, numbness/tingling, swelling, redness, or other worsening symptoms that are concerning to you. Referrals: AURA HARRISON MD [Primary Care Provider] - Follow up as needed [facility] [Provider Group] - Follow up as needed
--- NOTE | 2018-06-04 16:50 | RADIOLOGY REPORT (SQ) ---
EXAM DESCRIPTION: FOOT LEFT COMPLETE COMPLETED DATE/TIME: 06/04/2018 4:41 pm REASON FOR STUDY: left distal 1-2nd digit pain s/p injury COMPARISON: None. NUMBER OF VIEWS: Three views. TECHNIQUE: AP, lateral and oblique radiographic images acquired of the left foot. LIMITATIONS: None. FINDINGS: MINERALIZATION: Normal. BONES: No acute fracture or dislocation. No worrisome bone lesions. JOINTS: No effusions. SOFT TISSUES: No soft tissue swelling. No foreign body. OTHER: No other significant finding. IMPRESSION: NEGATIVE STUDY OF THE LEFT FOOT. NO RADIOGRAPHIC EVIDENCE OF ACUTE INJURY. TECHNICAL DOCUMENTATION: JOB ID: [id number] [employer]- All Rights Reserved Reading location - IP/workstation name: [email or web address]
== END 2018-06-04 17:26 | disposition home or self-care (01) ==
LOC: ER 15:43
DX: M79.675 Pain in left toe(s) (principal); W22.8XXA Striking against or struck by other objects, initial encounter; Y92.000 Kitchen of unspecified non-institutional (private) residence as the place of occurrence of the external cause
CPT/HCPCS: 99283

== ENCOUNTER 2018-07-10 15:08 | Emergency (ER) | payer MEDICAID ==
[2018-07-10] MEDS ORDERED: RINGERS SOLUTION,LACTATED 1,000 ML IV ONE (16:57)
[2018-07-10] MEDS ORDERED: KETOROLAC TROMETHAMINE INJ/PF 30 MG/1 ML SDV IV ONE (16:58)
[2018-07-10] MEDS ORDERED: METOCLOPRAMIDE HCL INJ/PF 10 MG/2 ML SDV IV ONE (16:58)
[2018-07-10] MEDS ORDERED: DIPHENHYDRAMINE HCL 50 MG/ML VIAL IV ONE (16:58)
--- NOTE | 2018-07-10 16:59 | ER Document Report ---
ED Medical Screen (RME) - General Chief Complaint: Headache Stated Complaint: FACIAL SWELLING Time Seen by Provider: 07/10/18 16:57 Primary Care Provider: AURA HARRISON MD [Primary Care Provider] - Follow up as needed Mode of Arrival: Ambulatory Information source: Patient Notes: This is a 22-year-old female with a history of migraines who presents to the emergency room with a worsening migraine over the last day associated with nausea, photophobia and right-sided facial swelling. On physical exam, patient does not have any obvious facial swelling. There is no speech changes. Her oral cavity is clear. Her neck is supple. TRAVEL OUTSIDE OF THE [place] IN LAST 30 DAYS: No - Related Data Allergies/Adverse Reactions: adhesive Allergy (Verified 06/19/18 09:57) nickel Allergy (Verified 06/19/18 09:57) ANTS Allergy (Uncoded 06/19/18 09:57) electrode gel Allergy (Uncoded 06/19/18 09:57) FISH Allergy (Uncoded 06/19/18 09:57) Past Medical History - Social History Chew tobacco use (# tins/day): No Frequency of alcohol use: None Drug Abuse: None - Past Medical History Cardiac Medical History: Denies: Hx Coronary Artery Disease, Hx Heart Attack, Hx Hypertension Pulmonary Medical History: Denies: Hx Asthma, Hx Bronchitis, Hx COPD, Hx Pneumonia Neurological Medical History: Reports: Hx Migraine. Denies: Hx Cerebrovascular Accident, Hx Seizures Renal/ Medical History: Denies: Hx Peritoneal Dialysis Musculoskeltal Medical History: Reports Hx Arthritis, Reports Hx Musculoskeletal Deformity, Reports Hx Musculoskeletal Trauma Psychiatric Medical History: Reports: Hx Anxiety, Hx Attention Deficit Hyperactivity Disorder - Anxiety, Hx Depression Traumatic Medical History: Reports: Hx Fractures - Immunizations Immunizations up to date: Yes Hx Diphtheria, Pertussis, Tetanus Vaccination: Yes History of Influenza Vaccine for 02/2017 - 07/2017 Season: Yes Influenza Administration Date for 02/2017 - 07/2017 Season: 02/03/18 Physical Exam - Vital signs Vitals: Temp Pulse Resp BP Pulse Ox 99.6 F 83 17 123/73 100 07/10/18 15:30 07/10/18 15:30 07/10/18 15:30 07/10/18 15:30 07/10/18 15:30 Course - Vital Signs Vital signs: Temp Pulse Resp BP Pulse Ox 99.6 F 83 17 123/73 100 07/10/18 15:30 07/10/18 15:30 07/10/18 15:30 07/10/18 15:30 07/10/18 15:30 Doctor's Discharge - Discharge Referrals: AURA HARRISON MD [Primary Care Provider] - Follow up as needed
[2018-07-10 18:20] LABS: HEMATOCRIT 41.8 % (36.0-47.0); HEMOGLOBIN 14.3 g/dL (12.0-15.5); MEAN CORPUSCULAR HEMOGLOBIN 31.2 pg (27.0-33.4); MEAN CORPUSCULAR HGB CONC 34.2 g/dL (32.0-36.0); MEAN CORPUSCULAR VOLUME 91 fl (80-97); RED BLOOD COUNT 4.59 10^6/uL (3.72-5.28); RED CELL DISTRIBUTION WIDTH 12.1 % (11.5-14.0); WHITE BLOOD COUNT 13.1 10^3/uL (4.0-10.5)
[2018-07-10 18:38] LABS: ABSOLUTE LYMPHOCYTES# (MANUAL) 3.9 10^3/uL (0.5-4.7); ABSOLUTE MONOCYTES # (MANUAL) 0.7 10^3/uL (0.1-1.4); ABSOLUTE NEUTROPHILS# (MANUAL) 8.5 10^3/uL (1.7-8.2); BASOPHILS % (MANUAL) 0 % (0-2); EOSINOPHILS % (MANUAL) 0 % (0-6); LYMPHOCYTES % (MANUAL) 30 % (13-45); MONOCYTES % (MANUAL) 5 % (3-13); SEGMENTED NEUTROPHILS % (MAN) 65 % (42-78); TOTAL CELLS COUNTED 100
[2018-07-10 18:39] LABS: ALANINE AMINOTRANSFERASE 13 U/L (9-52); ALKALINE PHOSPHATASE 35 U/L (38-126); ANION GAP 14 (5-19); ASPARTATE AMINO TRANSFERASE 23 U/L (14-36); BILIRUBIN,DIRECT 0.2 mg/dL (0.0-0.4); BILIRUBIN,TOTAL 0.6 mg/dL (0.2-1.3); BLOOD UREA NITROGEN 11 mg/dL (7-20); CALCIUM 10.1 mg/dL (8.4-10.2); CARBON DIOXIDE 22 mmol/L (22-30); CHLORIDE 105 mmol/L (98-107); GLUCOSE 89 mg/dL (75-110); PLATELET COMMENT ADEQUATE; POTASSIUM 4.6 mmol/L (3.6-5.0); SODIUM 140.6 mmol/L (137-145); TOTAL PROTEIN 7.8 g/dL (6.3-8.2); TOXIC GRANULATION SLIGHT
[2018-07-10 18:40] LABS: PLATELET COUNT 266 10^3/uL (150-450)
--- NOTE | 2018-07-10 19:31 | ER Document Report ---
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 Patient woke up with a migraine at 4:00 in the morning but went back to sleep, then woke up still had a migraine that are progressively worse and at 1300 called her boyfriend and they came in because she was having some shortness of breath that is secondary to pain. She complained of photophobia, right nostril burning, blurred vision, nausea, and generalized weakness. She denied any fevers or chills, confusion, dizziness or lightheadedness, neck stiffness. She denies current shortness of breath or chest pain, vomiting, abdominal pain, urinary symptoms. She is on oral contraceptives. TRAVEL OUTSIDE OF THE [place] IN LAST 30 DAYS: No - Related Data Allergies/Adverse Reactions: adhesive Allergy (Verified 06/19/18 09:57) nickel Allergy (Verified 06/19/18 09:57) ANTS Allergy (Uncoded 06/19/18 09:57) electrode gel Allergy (Uncoded 06/19/18 09:57) FISH Allergy (Uncoded 06/19/18 09:57) Past Medical History - General Information source: Patient - Social History Smoking Status: Never Smoker Chew tobacco use (# tins/day): No Frequency of alcohol use: None Drug Abuse: None Family History: Reviewed & Not Pertinent, Other Patient has suicidal ideation: No Patient has homicidal ideation: No - Past Medical History Cardiac Medical History: Denies: Hx Coronary Artery Disease, Hx Heart Attack, Hx Hypertension Pulmonary Medical History: Denies: Hx Asthma, Hx Bronchitis, Hx COPD, Hx Pneumonia Neurological Medical History: Reports: Hx Migraine. Denies: Hx Cerebrovascular Accident, Hx Seizures Renal/ Medical History: Denies: Hx Peritoneal Dialysis Musculoskeletal Medical History: Reports Hx Arthritis, Reports Hx Musculoskeletal Deformity, Reports Hx Musculoskeletal Trauma Psychiatric Medical History: Reports: Hx Anxiety, Hx Attention Deficit Hyperactivity Disorder - Anxiety, Hx Depression Traumatic Medical History: Reports: Hx Fractures - Immunizations Immunizations up to date: Yes Hx Diphtheria, Pertussis, Tetanus Vaccination: Yes Review of Systems - Review of Systems Constitutional: See HPI EENT: See HPI Cardiovascular: See HPI Respiratory: See HPI Gastrointestinal: See HPI Genitourinary: See HPI Female Genitourinary: See HPI Musculoskeletal: No symptoms reported Skin: No symptoms reported Hematologic/Lymphatic: No symptoms reported Neurological/Psychological: See HPI Physical Exam - Vital signs Vitals: Temp Pulse Resp BP Pulse Ox 99.6 F 83 17 123/73 100 07/10/18 15:30 07/10/18 15:30 07/10/18 15:30 07/10/18 15:30 07/10/18 15:30 - Notes Notes: PHYSICAL EXAMINATION: Reviewed vital signs and charting by RN GENERAL: Alert, interacts well. No acute distress. HEAD: Normocephalic, atraumatic. EYES: Pupils equal, round, and reactive to light. Extraocular movements intact. ENT: Oral mucosa moist, tongue midline. No evidence of any parotid duct swelling or discharge right side, very mild swelling to right side of face, tender to touch V2 branch of trigeminal nerve NECK: Full range of motion. Supple. Trachea midline. LUNGS: Clear to auscultation bilaterally, no wheezes, rales, or rhonchi. No respiratory distress. HEART: Regular rate and rhythm. No murmur ABDOMEN: soft, non-tender. Non-distended. Bowel sounds present in all 4 quadrants. no McBurney's point tenderness, no Hidalgo sign. EXTREMITIES: Moves all 4 extremities spontaneously. No edema, No cyanosis. BACK: no cervical, thoracic, lumbar midline tenderness. No saddle anesthesia, normal distal neurovascular exam. NEUROLOGICAL: Alert and oriented x3. Normal speech. Normal neurologic exam, no focal deficits PSYCH: Normal affect, normal mood. SKIN: Warm, dry, normal turgor. No rashes or lesions noted. Course - Re-evaluation Re-evalutation: 07/10/18 20:16 Briefly discussed patient with Dr. Ramos. A typical migraine pattern. Leukocytosis of 13,100 unremarkable. There is some mild right cheek facial swelling with some V2 branch irritation. Could be secondary to her migraine. There is no evidence of airway obstruction, uvula is midline, no evidence of sialoadenitis, patient reports feeling much better after migraine cocktail. Normal neurologic exam, no focal neuro deficits. At this time I will give patient strict return precautions and she is safe and stable to discharge home. Vital signs are stable. 07/10/18 20:20 - Vital Signs Vital signs: Temp Pulse Resp BP Pulse Ox 99.6 F 83 17 123/73 100 07/10/18 15:30 07/10/18 15:30 07/10/18 15:30 07/10/18 15:30 07/10/18 15:30 - Laboratory Result Diagrams: 07/10/18 18:05 07/10/18 18:05 Laboratory results interpreted by me: 07/10/18 07/10/18 18:05 18:05 WBC 13.1 H Abs Neuts (Manual) 8.5 H Alkaline Phosphatase 35 L Discharge - Discharge Clinical Impression: Swelling, cheek Migraine Qualifiers: Migraine type: without aura Status migrainosus presence: without status migrainosus Intractability: not intractable Qualified Code(s): G43.009 - Migraine without aura, not intractable, without status migrainosus Condition: Good Disposition: HOME, SELF-CARE Instructions: Migraine Headache ([facility]) Additional Instructions: You were seen today for a migraine headache. Please follow-up with your primary care doctor regarding today's ED visit. Return to emergency department immediately if you develop a headache that gets to its maximum severity within 20 minutes of onset, you pass out, you develop weakness, numbness, changes in your vision, become unable to keep any fluids down for more than 12 hours, or develop a fever greater than 100.4 degrees Fahrenheit. If you develop a similar migraine headache in the future I recommend that you immediately take 600 mg of ibuprofen and 50 mg of Benadryl and go to sleep as quickly as possible. This can often prevent your migraine headache from becoming severe. The swelling in your right cheek is not a life-threatening situation. You have some nerve irritation in your trigeminal nerve. It has 3 branches and the middle branch is where you are having the mild swelling and sensitivity to pain. Could very well be from your migraine headache that caused this irritation. Please pay close attention and if it gets any worse, you get facial droop, lose sensation, but the pain is so severe please come back to the emergency department. Forms: Return to Work Referrals: AURA HARRISON MD [Primary Care Provider] - Follow up as needed
[2018-07-10] MEDS ORDERED: ONDANSETRON ODT 4 MG TAB (6 TAB/ER DISP) PO PRN (20:31)
[2018-07-10 20:51] VITALS: BP 107/75
== END 2018-07-10 20:52 | disposition home or self-care (01) ==
LOC: ER 15:08
DX: G43.009 Migraine without aura, not intractable, without status migrainosus (principal)
CPT/HCPCS: 99283; 96374; 96375; 36415; 84702; 85025; 80053; J1200; J1885; J2765; J7120

== ENCOUNTER 2018-07-30 05:35 | Day surgery (SDC) | payer MEDICAID ==
[~2018-07-30 05:35] MED LIST: CEFAZOLIN 2 GM/D5W RTU 2 GM/50 ML RTUPB IV PRN
[2018-07-30] MEDS ORDERED: CEFAZOLIN 2 GM/D5W RTU 2 GM/50 ML RTUPB IV ONE (06:32)
[2018-07-30] MEDS ORDERED: ONDANSETRON HCL INJ/PF 4 MG/2 ML SDV ONE ×2 (07:10→08:59)
[2018-07-30] MEDS ORDERED: MORPHINE SULFATE 10 MG/ML INJ ONE (07:10)
[2018-07-30] MEDS ORDERED: DEXAMETHASONE SOD PHOSPHATE INJ 4 MG/1 ML VIAL ONE (07:10)
[2018-07-30] MEDS ORDERED: MIDAZOLAM 2 MG/2 ML INJ ONE (07:10)
[2018-07-30] MEDS ORDERED: PROPOFOL INJ 200 MG/20 ML VIAL IV ONE (07:10)
[2018-07-30] MEDS ORDERED: FENTANYL CITRATE INJ/PF 100 MCG/2 ML AMPUL ONE (07:10)
[2018-07-30] MEDS ORDERED: BUPIVACAINE HCL 0.5%-EPI 1:200000 INJ/PF 30 ML VIAL ONE (07:12)
[2018-07-30] MEDS ORDERED: DIPHENHYDRAMINE HCL 50 MG/ML VIAL IV PRN (08:00)
[2018-07-30] MEDS ORDERED: MORPHINE SULFATE 10 MG/ML INJ IV PRN (08:00)
[2018-07-30] MEDS ORDERED: MEPERIDINE HCL/PF INJ 25 MG/1 ML DISP.SYRIN IV PRN (08:00)
[2018-07-30] MEDS ORDERED: PROMETHAZINE HCL INJ 25 MG/1 ML VIAL IV PRN ×2 (08:00)
[2018-07-30] MEDS ORDERED: FENTANYL CITRATE INJ/PF 100 MCG/2 ML AMPUL IV PRN ×3 (08:00)
--- NOTE | 2018-07-30 08:27 | Discharge Summary ---
Discharge Summary (SDC) - Discharge Final Diagnosis: Left ankle instability Date of Surgery: 07/30/18 Discharge Date: 07/30/18 Condition: Good Treatment or Instructions: Maintain touchdown weightbearing restriction on the left lower extremity Prescriptions: Oxycodone HCl/Acetaminophen [Percocet 5-325 mg Tablet] 1 tab PO Q6 PRN #25 tab PRN Reason: Referrals: TRUNG RAMOS DO [Primary Care Provider] - Discharge Diet: As Tolerated, Regular Respiratory Treatments at Home: Deep Breathing/Coughing Discharge Activity: Balance Activity w/Rest, No tub bath Home Care Assistance: None Needed Adaptive Devices on Discharge: Axillary Crutches Report the Following to Your Physician Immediately: Shortness of Breath, Fever over 101 Degrees, Drainage-Foul Smelling
--- NOTE | 2018-07-30 08:30 | Operative Report ---
Operative Report DATE OF SURGERY: 07/30/18 PREOPERATIVE DIAGNOSIS: Left lateral ankle instability POSTOPERATIVE DIAGNOSIS: Same OPERATION: Left lateral ankle ligament reconstruction, Brostrom repair SURGEON: REYES MONTANEZ ANESTHESIA: GA ESTIMATED BLOOD LOSS: Minimal PROCEDURE: The patient supine Afrin table left lower extremities prepped and draped sterile fashion. Limb is elevated examination tourniquet inflated to 280 torr. Subsequently a longitudinal incision was made beginning distal to the fibula and extending anteriorly and distally over the sinus Tarsi. Sharp dissection was carried incision down to the fibula. Soft tissues elevated off the anterior and inferior surface of the fibula using a 15 blade. The underlying talus is visualized. Subsequently 2 suture anchors were placed into the extra-articular portion of the distal fibula and suture anchors are placed with attached FiberWire suture. Next a suture anchors placed into the lateral talar neck for the Arthrex internal bracing prosthesis. This is inserted uneventfully. Lastly a hip hole is drilled into the distal fibula for the Arthrex internal brace and prosthesis. The internal bracing prosthesis is then placed to an appropriate tension. The Brostrm repair was then completed using the suture anchors in the distal fibula to the anterior talofibular ligament. At this point the to urniquet is deflated. Wounds irrigated bulb lavage. Hemostasis obtained with bipolar cautery. The wound is then closed in layers interrupted Vicryl followed by nylon. A sterile compressive dressing posterior plaster splint were applied the patient's return to PACU in satisfactory condition.
[2018-07-30] MEDS ORDERED: OXYCODONE-ACETAMINOPHEN 5-325 MG TABLET ONE (09:32)
[2018-07-30] MEDS ORDERED: SUCCINYLCHOLINE CHLORIDE INJ 200 MG/10 ML VIAL ONE (10:15)
[2018-07-30 11:08] VITALS: BP 109/69
== END 2018-07-30 11:00 | disposition home or self-care (01) ==
LOC: OROUT 05:35
PROVIDERS: ATTEND Orthopaedic Surgery
DX: M25.372 Other instability, left ankle (principal); M25.572 Pain in left ankle and joints of left foot; Z79.899 Other long term (current) drug therapy; Z79.1 Long term (current) use of non-steroidal anti-inflammatories (NSAID)
CPT/HCPCS: 81025; 27695; C1713; J2250; J3490; J1100; J3010; J2270; J0330; J2405; J2704; J0690; 1470

== ENCOUNTER 2018-09-23 07:47 | Emergency (ER) | payer MEDICAID ==
[2018-09-23] MEDS ORDERED: ONDANSETRON 4 MG TAB.RAPDIS PO ONE (09:43)
--- NOTE | 2018-09-23 09:45 | ER Document Report ---
ED Medical Screen (RME) - General Chief Complaint: Headache Stated Complaint: NAUSEA Time Seen by Provider: 09/23/18 09:38 Primary Care Provider: TRUNG RAMOS DO [Primary Care Provider] - Follow up as needed Mode of Arrival: Ambulatory Information source: Patient TRAVEL OUTSIDE OF THE [place] IN LAST 30 DAYS: No - HPI Patient complains to provider of: HEADACHE, NAUSEA, PALPITATIONS Notes: 09/23/18 09:43 Patient is here with complaints of some intermittent headaches and nausea for the last week. She denies any headache now. Not sudden onset or thunderclap in nature. She does complain of some nausea at this time. She also feels like her heart has been fluttering. No chest pain or shortness of breath. Exam No distress, nontoxic-appearing. Lungs clear and equal throughout. Heart sounds normal. Nonfocal neuro exam. Plan CBC, CMP, urine, urine , TSH, magnesium, chest x-ray, EKG, Zofran. An initial examination was made on the patient as part of the triage process, and it was determined a more comprehensive evaluation was necessary. Initial labs were ordered and patient was transferred to another provider in the ED who assumed care and finished evaluation and plan. - Related Data Allergies/Adverse Reactions: latex Allergy (Unknown, Verified 09/23/18 07:48) adhesive Allergy (Verified 09/23/18 07:48) nickel Allergy (Verified 09/23/18 07:48) ANTS Allergy (Uncoded 09/23/18 07:48) electrode gel Allergy (Uncoded 09/23/18 07:48) FISH Allergy (Uncoded 09/23/18 07:48) Past Medical History - Past Medical History Cardiac Medical History: Denies: Hx Coronary Artery Disease, Hx Heart Attack, Hx Hypertension Pulmonary Medical History: Denies: Hx Asthma, Hx Bronchitis, Hx COPD, Hx Pneumonia Neurological Medical History: Reports: Hx Migraine. Denies: Hx Cerebrovascular Accident, Hx Seizures Renal/ Medical History: Denies: Hx Peritoneal Dialysis Musculoskeltal Medical History: Reports Hx Arthritis, Reports Hx Musculoskeletal Deformity, Reports Hx Musculoskeletal Trauma Psychiatric Medical History: Reports: Hx Anxiety, Hx Attention Deficit Hyperactivity Disorder - Anxiety, Hx Depression Traumatic Medical History: Reports: Hx Fractures Past Surgical History: Reports: Hx Orthopedic Surgery - Immunizations Immunizations up to date: Yes Hx Diphtheria, Pertussis, Tetanus Vaccination: Yes History of Influenza Vaccine for 02/2017 - 07/2017 Season: Yes Influenza Administration Date for 02/2017 - 07/2017 Season: 02/03/18 Physical Exam - Vital signs Vitals: Temp Pulse Resp BP Pulse Ox 98.2 F 95 18 140/73 H 100 09/23/18 07:59 09/23/18 07:59 09/23/18 07:59 09/23/18 07:59 09/23/18 07:59 Course - Vital Signs Vital signs: Temp Pulse Resp BP Pulse Ox 98.2 F 95 18 140/73 H 100 09/23/18 07:59 09/23/18 07:59 09/23/18 07:59 09/23/18 07:59 09/23/18 07:59 Doctor's Discharge - Discharge Referrals: TRUNG RAMOS DO [Primary Care Provider] - Follow up as needed
[2018-09-23 10:32] LABS: APPEARANCE,URINE CLEAR; BILIRUBIN,URINE NEGATIVE (NEGATIVE); COLOR,URINE YELLOW; GLUCOSE, URINE NEGATIVE (NEGATIVE); KETONES,URINE NEGATIVE (NEGATIVE); LEUKOCYTE ESTERASE,URINE MODERATE (NEGATIVE); NITRITE,URINE NEGATIVE (NEGATIVE); PROTEIN,URINE NEGATIVE (NEGATIVE); URINE SPECIFIC GRAVITY 1.011; UROBILINOGEN,URINE NEGATIVE mg/dL (<2.0)
--- NOTE | 2018-09-23 10:33 | RADIOLOGY REPORT (SQ) ---
EXAM DESCRIPTION: CHEST SINGLE VIEW COMPLETED DATE/TIME: 09/23/2018 10:22 am REASON FOR STUDY: PALPITATIONS COMPARISON: 06/19/2018 EXAM PARAMETERS: NUMBER OF VIEWS: One view. TECHNIQUE: Single frontal radiographic view of the chest acquired. RADIATION DOSE: NA LIMITATIONS: None. FINDINGS: LUNGS AND PLEURA: No opacities, masses or pneumothorax. No pleural effusion. MEDIASTINUM AND HILAR STRUCTURES: No masses. Contour normal. HEART AND VASCULAR STRUCTURES: Heart normal in size. Normal vasculature. BONES: No acute findings. HARDWARE: None in the chest. OTHER: No other significant finding. IMPRESSION: NO ACUTE RADIOGRAPHIC FINDING IN THE CHEST. TECHNICAL DOCUMENTATION: JOB ID: [id number] [employer]- All Rights Reserved Reading location - IP/workstation name: [email or web address]
--- NOTE | 2018-09-23 10:45 | ER Document Report ---
ED General - General Chief Complaint: Headache Stated Complaint: NAUSEA Time Seen by Provider: 09/23/18 09:38 Primary Care Provider: TRUNG RAMOS DO [Primary Care Provider] - Follow up as needed Mode of Arrival: Ambulatory TRAVEL OUTSIDE OF THE [place] IN LAST 30 DAYS: No - HPI Notes: Patient is a 22-year-old female with a history of anxiety/panic attacks, EDS, POTS who presents complaining of intermittent headache, fluttering in her chest, lightheadedness, and nausea. Patient states that she has chronic issues with nausea and is on medicines at home for it. Patient states that she has also had migraines in the past and has had recurrence of headaches recently. Headaches are not the worst of her life and does not reach maximal intensity immediately. Patient states that she has been having fluttering in her chest chronically as well, but had 2 episodes this past week. She was at her funeral arrangement director's office 5 days ago and told him about the fluttering, but they did not do anything at that time. Patient states that when she has the fluttering she feels the lightheadedness. She has not had any fluttering in a few days. She otherwise is eating and drinking without difficulty. She is urinating normally and having normal bowel movements. No other vaginal discharge, odor, or bleeding. Denies any current headache, fever, neck pain, changes in vision/speech/mentation/hearing, URI, sore throat, chest pain, current palpitations, syncope, cough, shortness of breath, wheeze, dyspnea, abdominal pain, current nausea/vomiting/diarrhea, urinary retention, dysuria, hematuria, loss of control of bowel or bladder, numbness/tingling, saddle anesthesia, muscle paralysis/weakness, or rash. - Related Data Allergies/Adverse Reactions: latex Allergy (Unknown, Verified 09/23/18 07:48) adhesive Allergy (Verified 09/23/18 07:48) nickel Allergy (Verified 09/23/18 07:48) ANTS Allergy (Uncoded 09/23/18 07:48) electrode gel Allergy (Uncoded 09/23/18 07:48) FISH Allergy (Uncoded 09/23/18 07:48) Past Medical History - General Information source: Patient - Social History Smoking Status: Never Smoker Family History: Reviewed & Not Pertinent, Other Patient has suicidal ideation: No Patient has homicidal ideation: No - Past Medical History Cardiac Medical History: Denies: Hx Coronary Artery Disease, Hx Heart Attack, Hx Hypertension Pulmonary Medical History: Denies: Hx Asthma, Hx Bronchitis, Hx COPD, Hx Pneumonia Neurological Medical History: Reports: Hx Migraine. Denies: Hx Cerebrovascular Accident, Hx Seizures Renal/ Medical History: Denies: Hx Peritoneal Dialysis Musculoskeletal Medical History: Reports Hx Arthritis, Reports Hx Musculoskeletal Deformity, Reports Hx Musculoskeletal Trauma Psychiatric Medical History: Reports: Hx Anxiety, Hx Attention Deficit Hyperactivity Disorder - Anxiety, Hx Depression Traumatic Medical History: Reports: Hx Fractures Past Surgical History: Reports: Hx Orthopedic Surgery - Immunizations Immunizations up to date: Yes Hx Diphtheria, Pertussis, Tetanus Vaccination: Yes Review of Systems - Review of Systems -: Yes All other systems reviewed and negative Physical Exam - Vital signs Vitals: Temp Pulse Resp BP Pulse Ox 98.2 F 95 18 140/73 H 100 09/23/18 07:59 09/23/18 07:59 09/23/18 07:59 09/23/18 07:59 09/23/18 07:59 - Notes Notes: PHYSICAL EXAMINATION: GENERAL: Well-appearing, well-nourished and in no acute distress. A&Ox4. Answers questions appropriately. HEAD: Atraumatic, normocephalic. Non-tender. EYES: Pupils equal round and reactive to light, extraocular movements intact, sclera anicteric, conjunctiva are normal. No nystagmus. ENT: EAC clear b/l. TM's intact b/l without erythema, fluid, or perforation. Nares patent and without discharge. oropharynx clear without exudates. No tonsilar hypertrophy or erythema. Moist mucous membranes. NECK: Normal range of motion, supple without lymphadenopathy. No rigidity/meningismus. LUNGS: Breath sounds clear to auscultation bilaterally and equal. No wheezes rales or rhonchi. HEART: Regular rate and rhythm without murmurs, rubs, gallops. ABDOMEN: Soft, nontender, nondistended abdomen. No guarding, no rebound. Normal bowel sounds present. No CVA tenderness bilaterally. Musculoskeletal: Ext's b/l: FROM to passive/active. Strength 5+/5. No deficits noted. No bony tenderness of extremities. Extremities: No cyanosis, clubbing, or edema b/l. Peripheral pulses 2+. Capillary refill less than 2 seconds. NEUROLOGICAL: NIH 0. GCS 15. Cranial nerves grossly intact. Normal speech, normal gait. Normal sensory, motor exams. Reflexes 2+ b/l. IVA's negative. Pronator drift negative. Heel/keene, finger/nose wnl. PSYCH: Normal mood, normal affect. SKIN: Warm, Dry, normal turgor, no rashes or lesions noted. Course - Re-evaluation Re-evalutation: 09/23/18 12:52 Patient is an afebrile, well-hydrated, 22-year-old female who presents with palpitations and intermittent headaches. Vitals are acceptable without significant tachycardia, tachypnea, or hypoxia. PE is otherwise unremarkable. Patient is nontoxic-appearing and is tolerating p.o. without difficulty. Patient has been asymptomatic throughout her stay. CBC, CMP, magnesium, TSH, EKG, hcg, chest x-ray were unremarkable. Urinalysis was questionable, but patient is a symptomatically culture will be sent prior to any treatment. Patient does not have any chest pain, dyspnea on exertion, or shortness of breath. Patient's SD interval is 116, QTC of 462. No acute ST-T changes. Similar to previous EKG. No further labs or imaging warranted at this time. Low suspicion for any sepsis, meningitis, severe dehydration, respiratory compromise, or other systemic emergent condition at this time. Patient is aware that condition can change from initial presentation and she needs to monitor symptoms closely and seek medical attention with any acute changes. Recheck with your PCM/funeral arrangement director in 2 to 3 days. Return to the ED with any other wo rsening/concerning symptoms. Patient is in agreement. - Vital Signs Vital signs: Temp Pulse Resp BP Pulse Ox 98.2 F 95 18 140/73 H 100 09/23/18 07:59 09/23/18 07:59 09/23/18 07:59 09/23/18 07:59 09/23/18 07:59 - Laboratory Result Diagrams: 09/23/18 10:51 09/23/18 10:51 Laboratory results interpreted by me: 09/23/18 09/23/18 09:50 10:51 Alkaline Phosphatase 34 L Ur Leukocyte Esterase MODERATE H Urine Ascorbic Acid 40 H Discharge - Discharge Clinical Impression: Palpitations Condition: Stable Disposition: HOME, SELF-CARE Additional Instructions: Maintain adequate fluid and food intake Take home medications as directed healthy diet Monitor blood pressure daily and keep a log Monitor symptoms for any acute changes Recheck with your PCM/Cardiology in 2-3 days Return to the ED with any worsening symptoms and/or development of fever, headache, chest pain, palpitations, syncope, shortness of breath, trouble breathing, abdominal pain, n/v/d, blood in stool/urine, loss of control of bowel/bladder, urinary retention, muscle weakness/paralysis, numbness/tingling, or other worsening symptoms that are concerning to you. Forms: Elevated Blood Pressure Referrals: TRUNG RAMOS DO [Primary Care Provider] - 09/25/18
[2018-09-23 11:07] LABS: ABSOLUTE EOSINOPHILS # (AUTO) 0.1 10^3/uL (0.0-0.6); ABSOLUTE LYMPHOCYTES (AUTO) 2.5 10^3/uL (0.5-4.7); ABSOLUTE MONOCYTES (AUTO) 0.3 10^3/uL (0.1-1.4); ABSOLUTE NEUT (AUTO) 4.7 10^3/uL (1.7-8.2); BASOPHILS % (AUTO) 0.5 % (0-2); EOSINOPHILS % (AUTO) 0.7 % (0-6); HEMATOCRIT 38.3 % (36.0-47.0); HEMOGLOBIN 13.1 g/dL (12.0-15.5); LYMPHOCYTES % (AUTO) 32.7 % (13-45); MEAN CORPUSCULAR HEMOGLOBIN 31.3 pg (27.0-33.4); MEAN CORPUSCULAR HGB CONC 34.2 g/dL (32.0-36.0); MEAN CORPUSCULAR VOLUME 92 fl (80-97); MONOCYTES % (AUTO) 3.7 % (3-13); PLATELET COUNT 372 10^3/uL (150-450); RED BLOOD COUNT 4.17 10^6/uL (3.72-5.28); RED CELL DISTRIBUTION WIDTH 12.2 % (11.5-14.0); SEGMENTED NEUTROPHILS % (AUTO) 62.4 % (42-78); TOTAL CELLS COUNTED % (AUTO) 100 %; WHITE BLOOD COUNT 7.6 10^3/uL (4.0-10.5)
[2018-09-23 11:38] LABS: ALANINE AMINOTRANSFERASE 16 U/L (9-52); ALBUMIN 4.7 g/dL (3.5-5.0); ALKALINE PHOSPHATASE 34 U/L (38-126); ANION GAP 13 (5-19); ASPARTATE AMINO TRANSFERASE 19 U/L (14-36); BILIRUBIN,DIRECT 0.4 mg/dL (0.0-0.4); BILIRUBIN,TOTAL 0.5 mg/dL (0.2-1.3); BLOOD UREA NITROGEN 12 mg/dL (7-20); CALCIUM 9.7 mg/dL (8.4-10.2); CARBON DIOXIDE 24 mmol/L (22-30); CHLORIDE 105 mmol/L (98-107); GLUCOSE 89 mg/dL (75-110); POTASSIUM 4.7 mmol/L (3.6-5.0); SODIUM 141.7 mmol/L (137-145); TOTAL PROTEIN 7.8 g/dL (6.3-8.2)
[2018-09-23 13:25] VITALS: BP 106/76
--- NOTE | 2018-09-24 10:30 | EKG REPORT ---
SEVERITY:- ABNORMAL ECG - SINUS TACHYCARDIA VENTRICULAR BIGEMINY : Confirmed by: Naun Manzano 24-Sep-2018 10:29:59
== END 2018-09-23 13:39 | disposition home or self-care (01) ==
LOC: ER 07:47
DX: R00.2 Palpitations (principal); R51 Headache; R11.0 Nausea; R42 Dizziness and giddiness; Z91.040 Latex allergy status
CPT/HCPCS: 93005; 99285; 36415; 87086; 83735; 84443; 85025; 81025; 87088; 80053; 81001; 87186; 71045; 93010; S0119

== ENCOUNTER → 2018-12-16 | Outpatient (CLI) | payer MEDICAID ==
[2018-12-16 17:12] LABS: ANION GAP 11 (5-19); BLOOD UREA NITROGEN 13 mg/dL (7-20); CARBON DIOXIDE 28 mmol/L (22-30); CHLORIDE 103 mmol/L (98-107); GLUCOSE 84 mg/dL (75-110); POTASSIUM 4.6 mmol/L (3.6-5.0)
== END ==
LOC: LAB 16:37
PROVIDERS: ATTEND Internal Medicine Cardiovascular Disease
DX: R55 Syncope and collapse (principal); R42 Dizziness and giddiness; I49.3 Ventricular premature depolarization; E83.42 Hypomagnesemia
CPT/HCPCS: 36415; 80048; 83735

== ENCOUNTER 2019-01-06 15:18 | Emergency (ER) | payer SELFPAY ==
[2019-01-06] MEDS ORDERED: DEXAMETHASONE SOD PHOS INJ 10 MG/1 ML VIAL IM ONE (16:37)
[2019-01-06] MEDS ORDERED: IBUPROFEN 800 MG TABLET PO ONE (16:42)
--- NOTE | 2019-01-06 16:43 | ER Document Report ---
HPI - HPI Time Seen by Provider: 01/06/19 16:12 Pain Level: 4 Context: Patient is 23-year-old female presents to the emergency department with a chief complaint of sore throat. Patient states that she generally has not been feeling well and has had some nausea since December 23. Patient states she has vomited 4 times but this was when attempting to take powder or [id number] liquid medication. Patient states she has always had issues with taking this type of medication. Patient states she did take it 325 mg aspirin prior to arrival for her sore throat which did help. Patient reports a sore throat began 2 days ago with left ear pain. Patient states that the back of her throat appeared red when she looked at it and there is pain with swallowing. Patient states she did eat mashed potatoes this morning with some relief as it seemed to coat the throat. Patient denies fever. Patient reports dry cough. - REPRODUCTIVE Reproductive: DENIES: : Past Medical History - General Information source: Patient - Social History Smoking Status: Unknown if Ever Smoked Family History: Reviewed & Not Pertinent, Other - Past Medical History Cardiac Medical History: Reports: None Denies: Hx Coronary Artery Disease, Hx Heart Attack, Hx Hypertension Pulmonary Medical History: Reports: None Denies: Hx Asthma, Hx Bronchitis, Hx COPD, Hx Pneumonia EENT Medical History: Reports: None Neurological Medical History: Reports: Hx Migraine. Denies: Hx Cerebrovascular Accident, Hx Seizures Endocrine Medical History: Reports: None Renal/ Medical History: Reports: None. Denies: Hx Peritoneal Dialysis Malignancy Medical History: Reports: None GI Medical History: Reports: None Musculoskeletal Medical History: Reports Hx Arthritis, Reports Hx Musculoskeletal Deformity, Reports Hx Musculoskeletal Trauma Psychiatric Medical History: Reports: Hx Anxiety, Hx Attention Deficit Hyperactivity Disorder - Anxiety, Hx Depression Traumatic Medical History: Reports: Hx Fractures Infectious Medical History: Reports: None Past Surgical History: Reports: Hx Orthopedic Surgery - Immunizations Immunizations up to date: Yes Hx Diphtheria, Pertussis, Tetanus Vaccination: Yes Vertical Provider Document - CONSTITUTIONAL Agree With Documented VS: Yes Exam Limitations: No Limitations General Appearance: No Apparent Distress - INFECTION CONTROL TRAVEL OUTSIDE OF THE [place] IN LAST 30 DAYS: No - HEENT HEENT: Atraumatic, Normocephalic, PERRLA, Pharyngeal Erythema Notes: Patient does have mild edema noted to the tonsils, very minimally more swollen on the left. There is mild erythema. No exudate noted. Difficult to evaluate TM due to excessive cerumen, the left TM was partially evaluated and the TM I could visualize was pearly escobar without bulging. - RESPIRATORY Respiratory: Breath Sounds Normal, No Respiratory Distress - CARDIOVASCULAR Cardiovascular: Regular Rate, Regular Rhythm - GI/ABDOMEN Gastrointestinal: Abdomen Soft, Abdomen Non-Tender, Normal Bowel Sounds - NEURO Level of Consciousness: Awake, Alert, Appropriate - DERM Integumentary: Warm, Dry, No Rash Course - Re-evaluation Re-evalutation: 01/06/19 17:01 I did offer ear irrigation, patient states that she doesn't feel like an ear infection as she has had these before. I did inform the patient without being able to visualize the TM I could not exclude an ear infection. Patient states most of her discomfort is when she swallows and in the throat. - Vital Signs Vital signs: Temp Pulse Resp BP Pulse Ox 98.1 F 100 18 117/70 99 01/06/19 15:23 01/06/19 15:23 01/06/19 15:23 01/06/19 15:23 01/06/19 15:23 - Laboratory Laboratory results interpreted by me: 01/06/19 19:19 Laboratory 01/06/19 16:10 Group A Strep Rapid NEGATIVE Discharge - Discharge Clinical Impression: Ear pain, left, Sore throat Condition: Stable Disposition: HOME, SELF-CARE Additional Instructions: Today you are seen in emergency department for sore throat. Your strep test was negative. A culture has been sent off and results in the next 24 to 48 hours. You will be contacted if you need to be placed on oral antibiotics. You have been given a steroid injection while here in the emergency department which should help with swelling and your discomfort. Please return to the emergency department if you do have no improvement the next 2 days, difficulty breathing or swallowing, increased throat pain, high fever rash or frequent vomiting. Sore Throat Sore throats may be caused by viruses, bacteria, or fungi. Most are due to a virus, and must get better on their own. Bacterial sore throats, particularly those due to "strep," need treatment with antibiotics. If an antibiotic is prescribed, be sure to take the medication for a full 10 days. Failure to take the antibiotic can result in complications such as rheumatic fever. Sometimes, an injection of antibiotics is given instead of pills or liquid. This single "shot" is equal in effectiveness to the oral medication. To relieve symptoms, take acetaminophen for pain. Sip clear liquids frequently, or eat popsicles or ice chips. Anesthetic sprays or lozenges may help. Make sure the air in the room is not too dry. Avoid using decongestants or antihistamines. Call the doctor if there is no improvement in two days, or if you have difficulty breathing, increasing throat pain, high fever, rash, or frequent vomiting. Forms: Return to Work Referrals: KAI GARDNER MD [EMERITUS] - Follow up as needed
[2019-01-06 17:42] VITALS: BP 113/63
[2019-01-06] MEDS ORDERED: ONDANSETRON ODT 4 MG TAB (6 TAB/ER DISP) PO PRN (17:42)
== END 2019-01-06 17:49 | disposition home or self-care (01) ==
LOC: ER 15:18
DX: J02.9 Acute pharyngitis, unspecified (principal); H92.02 Otalgia, left ear; R11.0 Nausea
CPT/HCPCS: 99283; 96372; 87070; 87880; 87077; J1100

== ENCOUNTER 2019-01-11 17:00 | Emergency (ER) | payer SELFPAY ==
[2019-01-11] MEDS ORDERED: PENICILLIN G BENZATHINE 1.2 MILLION UNIT/2 ML DISP.SYRIN IM ONE (17:24)
[2019-01-11] MEDS ORDERED: ONDANSETRON HCL INJ/PF 4 MG/2 ML SDV IV ONE (17:24)
--- NOTE | 2019-01-11 17:28 | ER Document Report ---
ED Medical Screen (RME) - General Chief Complaint: Nausea/Vomiting Stated Complaint: DIZZY, NAUSEA Time Seen by Provider: 01/11/19 17:20 Primary Care Provider: TRUNG RAMOS DO [Primary Care Provider] - Follow up as needed Mode of Arrival: Ambulatory Information source: Patient Notes: 23-year-old female presented to ED for complaint of nausea vomiting diarrhea for the last few days. She states she has not vomited today but she did yesterday has had one stool today. She states at work today she felt very nauseated and felt like her heart was racing so she asked her boss to letter sent down. When she sat down her pulse was 121. States she has been nauseated but has not vomited today. She states she has had diarrhea but none today she has had one stool today. She was here because of her sore throat and pain to her jaw and her left upper leg. She had a strep test there was rapid strep negative but the throat culture did come back she beta strep. I have ordered her a #G shot for now. I have also ordered blood work urine and Zofran IV for her nausea and vomiting. I have greeted and performed a rapid initial assessment of this patient. A comprehensive ED assessment and evaluation of the patient, analysis of test results and completion of medical decision making process will be conducted by an additional ED providers. TRAVEL OUTSIDE OF THE [place] IN LAST 30 DAYS: No - Related Data Allergies/Adverse Reactions: latex Allergy (Unknown, Verified 01/11/19 17:01) adhesive Allergy (Verified 01/11/19 17:01) nickel Allergy (Verified 01/11/19 17:01) ANTS Allergy (Uncoded 01/11/19 17:01) electrode gel Allergy (Uncoded 01/11/19 17:01) FISH Allergy (Uncoded 01/11/19 17:01) thimerosal Allergy (Uncoded 01/11/19 17:01) Past Medical History - Past Medical History Cardiac Medical History: Denies: Hx Coronary Artery Disease, Hx Heart Attack, Hx Hypertension Pulmonary Medical History: Denies: Hx Asthma, Hx Bronchitis, Hx COPD, Hx Pneumonia Neurological Medical History: Reports: Hx Migraine. Denies: Hx Cerebrovascular Accident, Hx Seizures Renal/ Medical History: Denies: Hx Peritoneal Dialysis Musculoskeltal Medical History: Reports Hx Arthritis, Reports Hx Musculoskeletal Deformity, Reports Hx Musculoskeletal Trauma Psychiatric Medical History: Reports: Hx Anxiety, Hx Attention Deficit Hyperactivity Disorder - Anxiety, Hx Depression Traumatic Medical History: Reports: Hx Fractures Past Surgical History: Reports: Hx Orthopedic Surgery - Immunizations Immunizations up to date: Yes Hx Diphtheria, Pertussis, Tetanus Vaccination: Yes History of Influenza Vaccine for 02/2017 - 07/2017 Season: Yes Influenza Administration Date for 02/2017 - 07/2017 Season: 02/03/18 Physical Exam - Vital signs Vitals: Temp Pulse Resp BP Pulse Ox 98.3 F 86 18 123/78 100 01/11/19 17:05 01/11/19 17:05 01/11/19 17:05 01/11/19 17:05 01/11/19 17:05 Course - Vital Signs Vital signs: Temp Pulse Resp BP Pulse Ox 98.3 F 86 18 123/78 100 01/11/19 17:05 01/11/19 17:05 01/11/19 17:05 01/11/19 17:05 01/11/19 17:05 Doctor's Discharge - Discharge Referrals: TRUNG RAMOS DO [Primary Care Provider] - Follow up as needed
[2019-01-11 18:29] LABS: ABSOLUTE BASOPHILS # (AUTO) 0.1 10^3/uL (0.0-0.2); ABSOLUTE EOSINOPHILS # (AUTO) 0.2 10^3/uL (0.0-0.6); ABSOLUTE LYMPHOCYTES (AUTO) 3.1 10^3/uL (0.5-4.7); ABSOLUTE MONOCYTES (AUTO) 0.5 10^3/uL (0.1-1.4); BASOPHILS % (AUTO) 0.6 % (0-2); EOSINOPHILS % (AUTO) 2.2 % (0-6); HEMATOCRIT 44.3 % (36.0-47.0); HEMOGLOBIN 14.9 g/dL (12.0-15.5); LYMPHOCYTES % (AUTO) 31.3 % (13-45); MEAN CORPUSCULAR HEMOGLOBIN 30.4 pg (27.0-33.4); MEAN CORPUSCULAR HGB CONC 33.6 g/dL (32.0-36.0); MEAN CORPUSCULAR VOLUME 91 fl (80-97); MONOCYTES % (AUTO) 5.2 % (3-13); PLATELET COUNT 404 10^3/uL (150-450); RED CELL DISTRIBUTION WIDTH 12.2 % (11.5-14.0); SEGMENTED NEUTROPHILS % (AUTO) 60.7 % (42-78); TOTAL CELLS COUNTED % (AUTO) 100 %; WHITE BLOOD COUNT 9.8 10^3/uL (4.0-10.5)
[2019-01-11 18:38] LABS: APPEARANCE,URINE CLEAR; BILIRUBIN,URINE NEGATIVE (NEGATIVE); COLOR,URINE STRAW; GLUCOSE, URINE NEGATIVE (NEGATIVE); KETONES,URINE NEGATIVE (NEGATIVE); LEUKOCYTE ESTERASE,URINE NEGATIVE (NEGATIVE); NITRITE,URINE NEGATIVE (NEGATIVE); PROTEIN,URINE NEGATIVE (NEGATIVE); URINE SPECIFIC GRAVITY 1.006; UROBILINOGEN,URINE NEGATIVE mg/dL (<2.0)
[2019-01-11 18:51] LABS: ALBUMIN 5.2 g/dL (3.5-5.0); ALKALINE PHOSPHATASE 56 U/L (38-126); ANION GAP 14 (5-19); ASPARTATE AMINO TRANSFERASE 30 U/L (14-36); BILIRUBIN,DIRECT 0.3 mg/dL (0.0-0.4); BILIRUBIN,TOTAL 0.5 mg/dL (0.2-1.3); BLOOD UREA NITROGEN 11 mg/dL (7-20); CALCIUM 10.4 mg/dL (8.4-10.2); CARBON DIOXIDE 26 mmol/L (22-30); CHLORIDE 99 mmol/L (98-107); GLUCOSE 88 mg/dL (75-110); POTASSIUM 5.1 mmol/L (3.6-5.0); TOTAL PROTEIN 8.4 g/dL (6.3-8.2)
[2019-01-11] MEDS ORDERED: NORMAL SALINE 1000 ML 1,000 ML IV ONE (21:01)
--- NOTE | 2019-01-11 21:03 | ER Document Report ---
HPI - HPI Patient complains to provider of: vom/diarrhea, dizzy, tachycardia Time Seen by Provider: 01/11/19 17:20 Pain Level: Denies Context: Pt denies any prior personal cardiac history. denies any family history of sudden or cardiac dz at a young age. no syncope. no palpitations. no hx of mi, cva, tia, or cad. no ripping or tearing sensation. denies any blood thinners. No prior history of blood clots. No recent long distance t ravel/immobilization, recent surgery, exogenous estrogen use, hemoptysis, history of cancer, or calf pain/swelling. No prior history of arrhythmias. Similar symptoms previously: Yes Recently seen / treated by doctor: No - ROS Systems Reviewed and Negative: Yes All other systems reviewed and negative - To include 10 systems, unless mentioned in the hpi. - REPRODUCTIVE Reproductive: DENIES: : Past Medical History - General Information source: Patient - Social History Smoking Status: Never Smoker Chew tobacco use (# tins/day): No Frequency of alcohol use: None Drug Abuse: None Family History: Reviewed & Not Pertinent, Other Patient has suicidal ideation: No Patient has homicidal ideation: No - Past Medical History Cardiac Medical History: Denies: Hx Coronary Artery Disease, Hx Heart Attack, Hx Hypertension Pulmonary Medical History: Denies: Hx Asthma, Hx Bronchitis, Hx COPD, Hx Pneumonia Neurological Medical History: Reports: Hx Migraine. Denies: Hx Cerebrovascular Accident, Hx Seizures Renal/ Medical History: Denies: Hx Peritoneal Dialysis Musculoskeletal Medical History: Reports Hx Arthritis, Reports Hx Musculoskeletal Deformity, Reports Hx Musculoskeletal Trauma Psychiatric Medical History: Reports: Hx Anxiety, Hx Attention Deficit Hyperactivity Disorder - Anxiety, Hx Depression Traumatic Medical History: Reports: Hx Fractures Past Surgical History: Reports: Hx Orthopedic Surgery - left an kle - Immunizations Immunizations up to date: Yes Hx Diphtheria, Pertussis, Tetanus Vaccination: Yes Vertical Provider Document - CONSTITUTIONAL Agree With Documented VS: Yes Exam Limitations: No Limitations General Appearance: No Apparent Distress Notes: >>>> PHYSICAL_EXAM: GENERAL_APPEARANCE: well_nourished, alert, cooperative, no_acute_distress, no_obvious_discomfort. pleasant, smiling, speaking in full sentences, in no sign of pain or resp distress, VITALS: reviewed, see vital signs table. HEAD: no_swelling\tenderness on the head. normocephalic. atraumatic. no fernandez signs. no raccoons eyes. EARS: canals_clear_bilat, TMs_clear. EYES: PERRL, EOMI, conjunctiva_clear. NOSE: no_nasal_discharge. MOUTH: (-)decreased moisture. THROAT: no_tonsilar_inflammation, no_airway_obstruction. no_lymphadenopathy NECK: supple, no_neck_tenderness, (-)thyromegaly. full rom. full strength. no jvd. no carotid bruit. no meningeal signs. no sign of central cord syndrome. BACK: no_back_tenderness. CHEST_WALL: no_chest_tenderness. no overlying skin changes LUNGS: no_wheezing, ctab (-)accessory muscle use, good air exchange bilateral. HEART: normal_rate, normal_rhythm, no_murmur, ABDOMEN: normal_BS, soft, no_abd_tenderness, (-)guarding, (-)rebound, no_organomegaly, no distension or peritoneal signs. no cva ttp EXTREMITIES: strength 5/5 in all_extremities, good pulses in all_extremities, no_swelling\tenderness in the extremities, no_edema. full rom. normal gait. good pulses. brisk cap refill. 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 neg amanda sign NEURO: motor and sensation intact, cranial nerves 2-12 intact, cerebellar fxn intact SKIN: warm, dry, good_color, no_rash. MENTAL_STATUS: speech_clear, oriented_X_3, normal_affect, responds_appropriate ly to questions. - INFECTION CONTROL TRAVEL OUTSIDE OF THE [place] IN LAST 30 DAYS: No Course - Re-evaluation Re-evalutation: 01/12/19 00:00 Pt here for . advised to f/u with pcp in 1-2 days. return for any worsening symptoms. vss. well appearing. satting well on ra. neurononfocal. pt understands and agrees to plan. On reexam, pt improved with tx listed. remained stable. nontoxic. well appe aring. pain controlled. tolerating po. requesting to go home. case discussed with ER Attending, Dr. marshall, who directed and agrees with plan of care and advised no further workup indicated at this time and pt is stable for dc home with close f/u with pcp/specialist. Documentation achieved through voice recording which may lead to some occasional accidental typographical errors. Extensive efforts have been made to proof read documentation to make sure these are the least as possible. Category Date Time Status EKG Documentation STAT Care 01/11/19 20:58 Completed Orthostatic Vital Sign (ED) NOW Care 01/11/19 20:59 Active Chest [CHEST 2 VIEWS] [RAD] Stat Exams 01/11/19 20:59 Completed CBC WITH DIFF [HEME] Stat Lab 01/11/19 18:00 Completed COMPREHENSIVE METABOLIC PANEL [CHEM] Stat Lab 01/11/19 18:00 Completed D-DIMER [COAG] Stat Lab 01/11/19 18:00 Completed FREE T3 [CHEM] Stat Lab 01/11/19 18:00 Completed HCG-QUAL, SERUM [CHEM] Stat Lab 01/11/19 18:00 Completed MAGNESIUM [CHEM] Stat Lab 01/11/19 18:00 Completed T4 [FREE T4 (FREE THYROXINE)] [CHEM] Stat Lab 01/11/19 18:00 Completed THYROID STIMULATING HORMONE [CHEM] Stat Lab 01/11/19 18:00 Completed TROPONIN I [CHEM] Stat Lab 01/11/19 18:00 Completed URINALYSIS [URIN] Stat Lab 01/11/19 18:00 Completed URINE DRUG SCREEN [CHEM] Stat Lab 01/11/19 18:00 Completed Normal Saline 1000 ml [NaCl 0.9% 1000 ml IV Soln] 1,000 Med 01/11/19 21:01 Discontinued ml IV BOLUS Ondansetron HCl/Pf [Zofran Inj/Pf 4 mg/2 ml Sdv] Med 01/11/19 17:24 Discontinued 8 mg IV NOW ONE Penicillin G Benzathine [Bicillin LA Inj 1.2 Million Med 01/11/19 17:24 Discontinued Unit/2 ml Disp.sy] 1,200,000 unit IM NOW ONE EKG ER ONLY [ER] Stat Oth 01/11/19 Completed 01/12/19 00:05 - Vital Signs Vital signs: Temp Pulse Resp BP Pulse Ox 98.3 F 86 18 123/78 100 01/11/19 17:05 01/11/19 17:05 01/11/19 17:05 01/11/19 17:05 01/11/19 17:05 01/12/19 00:01 Temp Pulse Pulse Pulse Pulse Resp BP 01/11/19 21:34 84 84 77 01/11/19 17:05 98.3 F 86 18 123/78 BP BP BP Pulse Ox 01/11/19 21:34 103/73 117/74 112/69 01/11/19 17:05 100 - Laboratory Result Diagrams: 01/11/19 18:00 01/11/19 18:00 Laboratory results interpreted by me: 01/11/19 18:00 Potassium 5.1 H Calcium 10.4 H Total Protein 8.4 H Albumin 5.2 H 01/12/19 00:01 Labs- Entire Visit 01/11/19 01/11/19 01/11/19 18:00 18:00 18:00 WBC 9.8 RBC 4.90 Hgb 14.9 Hct 44.3 MCV 91 MCH 30.4 MCHC 33.6 RDW 12.2 Plt Count 404 Lymph % (Auto) 31.3 [place] % (Auto) 5.2 Eos % (Auto) 2.2 Baso % (Auto) 0.6 Absolute Neuts (auto) 6.0 Absolute Lymphs (auto) 3.1 Absolute Monos (auto) 0.5 Absolute Eos (auto) 0.2 Absolute Basos (auto) 0.1 Seg Neutrophils % 60.7 D-Dimer Sodium 138.9 Potassium 5.1 H Chloride 99 Carbon Dioxide 26 Anion Gap 14 BUN 11 Creatinine 0.70 Est GFR ( Amer) > 60 Est GFR (MDRD) Non-Af > 60 Glucose 88 Calcium 10.4 H Magnesium Total Bilirubin 0.5 Direct Bilirubin 0.3 Neonat Total Bilirubin Not Reportable Neonat Direct Bilirubin Not Reportable Neonat Indirect Bili Not Reportable AST 30 ALT 20 Alkaline Phosphatase 56 Troponin I Total Protein 8.4 H Albumin 5.2 H TSH Free T4 Free T3 pg/mL Serum HCG, Qual NEGATIVE Urine Color Urine Appearance Urine pH Ur Specific [place] Urine Protein Urine Glucose (UA) Urine Ketones Urine Blood Urine Nitrite Urine Bilirubin Urine Urobilinogen Ur Leukocyte Esterase Urine WBC (Auto) Urine RBC (Auto) Squamous Epi Cells Auto Urine Mucus (Auto) Urine Ascorbic Acid Urine Opiates Screen Urine Methadone Screen Ur Barbiturates Screen Ur Phencyclidine Scrn Ur Amphetamines Screen U Benzodiazepines Scrn Urine Cocaine Screen U Marijuana (THC) Screen 01/11/19 01/11/19 01/11/19 18:00 18:00 18:00 WBC RBC Hgb Hct MCV MCH MCHC RDW Plt Count Lymph % (Auto) [place] % (Auto) Eos % (Auto) Baso % (Auto) Absolute Neuts (auto) Absolute Lymphs (auto) Absolute Monos (auto) Absolute Eos (auto) Absolute Basos (auto) Seg Neutrophils % D-Dimer Sodium Potassium Chloride Carbon Dioxide Anion Gap BUN Creatinine Est GFR ( Amer) Est GFR (MDRD) Non-Af Glucose Calcium Magnesium 2.3 Total Bilirubin Direct Bilirubin Neonat Total Bilirubin Neonat Direct Bilirubin Neonat Indirect Bili AST ALT Alkaline Phosphatase Troponin I Total Protein Albumin TSH 1.75 Free T4 1.28 Free T3 pg/mL 3.78 Serum HCG, Qual Urine Color STRAW Urine Appearance CLEAR Urine pH 7.0 Ur Specific [place] 1.006 Urine Protein NEGATIVE Urine Glucose (UA) NEGATIVE Urine Ketones NEGATIVE Urine Blood NEGATIVE Urine Nitrite NEGATIVE Urine Bilirubin NEGATIVE Urine Urobilinogen NEGATIVE Ur Leukocyte Esterase NEGATIVE Urine WBC (Auto) 2 Urine RBC (Auto) 7 Squamous Epi Cells Auto 2 Urine Mucus (Auto) RARE Urine Ascorbic Acid NEGATIVE Urine Opiates Screen Urine Methadone Screen Ur Barbiturates Screen Ur Phencyclidine Scrn Ur Amphetamines Screen U Benzodiazepines Scrn Urine Cocaine Screen U Marijuana (THC) Screen 01/11/19 01/11/19 01/11/19 18:00 18:00 18:00 WBC RBC Hgb Hct MCV MCH MCHC RDW Plt Count Lymph % (Auto) [place] % (Auto) Eos % (Auto) Baso % (Auto) Absolute Neuts (auto) Absolute Lymphs (auto) Absolute Monos (auto) Absolute Eos (auto) Absolute Basos (auto) Seg Neutrophils % D-Dimer < 0.27 Sodium Potassium Chloride Carbon Dioxide Anion Gap BUN Creatinine Est GFR ( Amer) Est GFR (MDRD) Non-Af Glucose Calcium Magnesium Total Bilirubin Direct Bilirubin Neonat Total Bilirubin Neonat Direct Bilirubin Neonat Indirect Bili AST ALT Alkaline Phosphatase Troponin I < 0.012 Total Protein Albumin TSH Free T4 Free T3 pg/mL Serum HCG, Qual Urine Color Urine Appearance Urine pH Ur Specific [place] Urine Protein Urine Glucose (UA) Urine Ketones Urine Blood Urine Nitrite Urine Bilirubin Urine Urobilinogen Ur Leukocyte Esterase Urine WBC (Auto) Urine RBC (Auto) Squamous Epi Cells Auto Urine Mucus (Auto) Urine Ascorbic Acid Urine Opiates Screen NEGATIVE Urine Methadone Screen NEGATIVE Ur Barbiturates Screen NEGATIVE Ur Phencyclidine Scrn NEGATIVE Ur Amphetamines Screen NEGATIVE U Benzodiazepines Scrn NEGATIVE Urine Cocaine Screen NEGATIVE U Marijuana (THC) Screen NEGATIVE - Diagnostic Test Radiology reviewed: Image reviewed, Reports reviewed Radiology results interpreted by me: 01/12/19 00:01 Chest X-Ray 01/11/19 20:59 IMPRESSION: No acute abnormality is identified. - EKG Interpretation by Me EKG shows normal: Sinus rhythm Rate: Normal Heart block present: 1st Degree - 75 bpm, no stemi, reviewed by dr marshall, improved from last old avail for comparison. 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 Return for any worsening symptoms. tylenol or motrin as needed for any pain or fever if not allergic. take the medication as prescribed. Stop taking a multivitamin as discussed. you can continue to take your magnesium and your nausea medicine. your potassium was elevated here today. have your pcp recheck this next week as it could be from your multivitamin. eat and drink at regular intervals. change your tooth brush. salt water gargles. over the counter sore throat meds. Forms: Return to Work Referrals: TRUNG RAMOS DO [NO LOCAL MD] - Follow up as needed
[2019-01-11 21:42] LABS: FREE T3 3.78 pg/mL (2.77-5.27); FREE T4 (FREE THYROXINE) 1.28 ng/dL (0.78-2.19)
--- NOTE | 2019-01-11 21:44 | EKG REPORT ---
SEVERITY:- ABNORMAL ECG - SINUS RHYTHM FIRST DEGREE AV BLOCK : Confirmed by: Naun Manzano 11-Jan-2019 21:43:27
[2019-01-11 21:55] LABS: THYROID STIMULATING HORMONE 1.75 uIU/mL (0.47-4.68)
[2019-01-11 21:59] LABS: URINE AMPHETAMINES SCREEN NEGATIVE; URINE BARBITURATES SCREEN NEGATIVE; URINE BENZODIAZEPINES SCREEN NEGATIVE; URINE COCAINE SCREEN NEGATIVE; URINE MARIJUANA (THC) SCREEN NEGATIVE; URINE METHADONE SCREEN NEGATIVE; URINE PHENCYCLIDINE SCREEN NEGATIVE
--- NOTE | 2019-01-11 22:21 | RADIOLOGY REPORT (SQ) ---
EXAM DESCRIPTION: XR CHEST 2 VIEWS COMPLETED DATE/TME: 01/11/2019 20:59 CLINICAL HISTORY: 23 years Female dizzy, tachy COMPARISON: 09/23/2018 FINDINGS: The cardiomediastinal silhouette appears unremarkable. No consolidating infiltrates or pleural effusions. No pneumothorax. IMPRESSION: No acute abnormality is identified.
[2019-01-12 00:13] VITALS: BP 113/77
== END 2019-01-12 00:13 | disposition home or self-care (01) ==
LOC: ER 17:00
DX: J02.0 Streptococcal pharyngitis (principal); E87.5 Hyperkalemia; R42 Dizziness and giddiness; R11.10 Vomiting, unspecified; R19.7 Diarrhea, unspecified; R00.2 Palpitations; R00.0 Tachycardia, unspecified
CPT/HCPCS: 93005; 99283; 96372; 96361; 96374; 36415; 84439; 83735; 84443; 84703; 85025; 80053; 81001; 84484; 80307; 84481; 85379; 71046; 93010; J0561; J2405; J7030

== ENCOUNTER 2019-02-22 19:00 | Emergency (ER) | payer SELFPAY ==
--- NOTE | 2019-02-22 19:19 | ER Document Report ---
ED Medical Screen (RME) - General Chief Complaint: Flank Pain Stated Complaint: ABDOMINAL PAIN Time Seen by Provider: 02/22/19 19:16 Primary Care Provider: ALLI DE LOS SANTOS FNP-C [Primary Care Provider] - Follow up as needed Mode of Arrival: Ambulatory Information source: Patient Notes: 23-year-old female presented to ED for right flank pain since last night. She states she did have some nausea but no nausea right now. She states she had a similar pain a couple years ago while she was in high school she graduated in 2016. He states that that time they told her it was something to do with her kidney. She states the pain is like a crampy hot pressure feeling in the front and back of her flank area. Patient is alert oriented respirations regular nonlabored speaking in full sentences walks with even steady gait. She states she is on control and her periods are never normal so she thinks her last period was in December. I have greeted and performed a rapid initial assessment of this patient. A comprehensive ED assessment and evaluation of the patient, analysis of test results and completion of medical decision making process will be conducted by an additional ED providers. TRAVEL OUTSIDE OF THE [place] IN LAST 30 DAYS: No - Related Data Allergies/Adverse Reactions: latex Allergy (Unknown, Verified 01/11/19 17:01) adhesive Allergy (Verified 01/11/19 17:01) nickel Allergy (Verified 01/11/19 17:01) ANTS Allergy (Uncoded 01/11/19 17:01) electrode gel Allergy (Uncoded 01/11/19 17:01) FISH Allergy (Uncoded 01/11/19 17:01) thimerosal Allergy (Uncoded 01/11/19 17:01) Past Medical History - Past Medical History Cardiac Medical History: Denies: Hx Coronary Artery Disease, Hx Heart Attack, Hx Hypertension Pulmonary Medical History: Denies: Hx Asthma, Hx Bronchitis, Hx COPD, Hx Pneumonia Neurological Medical History: Reports: Hx Migraine. Denies: Hx Cerebrovascular Accident, Hx Seizures Renal/ Medical History: Denies: Hx Peritoneal Dialysis Musculoskeltal Medical History: Reports Hx Arthritis, Reports Hx Musculoskeletal Deformity, Reports Hx Musculoskeletal Trauma Psychiatric Medical History: Reports: Hx Anxiety, Hx Attention Deficit Hyperactivity Disorder - Anxiety, Hx Depression Traumatic Medical History: Reports: Hx Fractures Past Surgical History: Reports: Hx Orthopedic Surgery - left an kle - Immunizations Immunizations up to date: Yes Hx Diphtheria, Pertussis, Tetanus Vaccination: Yes Doctor's Discharge - Discharge Referrals: ALLI DE LOS SANTOS, NUCLEAR MEDICINE TECHNOLOGIST-C [Primary Care Provider] - Follow up as needed
[2019-02-22 20:42] LABS: ABSOLUTE BASOPHILS # (AUTO) 0.1 10^3/uL (0.0-0.2); ABSOLUTE EOSINOPHILS # (AUTO) 0.1 10^3/uL (0.0-0.6); ABSOLUTE LYMPHOCYTES (AUTO) 2.3 10^3/uL (0.5-4.7); ABSOLUTE MONOCYTES (AUTO) 0.4 10^3/uL (0.1-1.4); ABSOLUTE NEUT (AUTO) 5.7 10^3/uL (1.7-8.2); BASOPHILS % (AUTO) 0.7 % (0-2); EOSINOPHILS % (AUTO) 1.6 % (0-6); HEMATOCRIT 39.3 % (36.0-47.0); HEMOGLOBIN 13.5 g/dL (12.0-15.5); MEAN CORPUSCULAR HEMOGLOBIN 31.4 pg (27.0-33.4); MEAN CORPUSCULAR HGB CONC 34.4 g/dL (32.0-36.0); MEAN CORPUSCULAR VOLUME 91 fl (80-97); MONOCYTES % (AUTO) 4.3 % (3-13); PLATELET COUNT 356 10^3/uL (150-450); RED CELL DISTRIBUTION WIDTH 12.6 % (11.5-14.0); SEGMENTED NEUTROPHILS % (AUTO) 66.4 % (42-78); TOTAL CELLS COUNTED % (AUTO) 100 %; WHITE BLOOD COUNT 8.6 10^3/uL (4.0-10.5)
[2019-02-22 20:52] LABS: APPEARANCE,URINE SLIGHTLY-CLOUDY; BILIRUBIN,URINE NEGATIVE (NEGATIVE); COLOR,URINE YELLOW; GLUCOSE, URINE NEGATIVE (NEGATIVE); KETONES,URINE NEGATIVE (NEGATIVE); PROTEIN,URINE NEGATIVE (NEGATIVE); URINE SPECIFIC GRAVITY 1.024; UROBILINOGEN,URINE NEGATIVE mg/dL (<2.0)
[2019-02-22 21:03] LABS: ALBUMIN 4.5 g/dL (3.5-5.0); ALKALINE PHOSPHATASE 34 U/L (38-126); ANION GAP 12 (5-19); ASPARTATE AMINO TRANSFERASE 20 U/L (14-36); BILIRUBIN,DIRECT 0.1 mg/dL (0.0-0.4); BILIRUBIN,TOTAL 0.2 mg/dL (0.2-1.3); BLOOD UREA NITROGEN 18 mg/dL (7-20); CALCIUM 9.5 mg/dL (8.4-10.2); CARBON DIOXIDE 23 mmol/L (22-30); CHLORIDE 107 mmol/L (98-107); GLUCOSE 81 mg/dL (75-110); POTASSIUM 4.2 mmol/L (3.6-5.0); TOTAL PROTEIN 7.4 g/dL (6.3-8.2)
[2019-02-22] MEDS ORDERED: NORMAL SALINE 1000 ML 1,000 ML IV ONE (21:50)
--- NOTE | 2019-02-22 23:46 | RADIOLOGY REPORT (SQ) ---
EXAM DESCRIPTION: [facility]: US ABDOMEN LIMITED CLINICAL HISTORY: 23 years Female; Right upper abdominal and flank pain TECHNIQUE: Right upper quadrant ultrasound was performed. COMPARISON: None. FINDINGS: Pancreas: Visualized portions are unremarkable. Liver: 14 cm long Portal venous flow is hepatopedal, normal. Gallbladder: normal with no gallstones or sonographic evidence for acute cholecystitis. No pericholecystic fluid. No sonographic Hidalgo's sign. Common bile duct: 2 mm. Right kidney: 9.8 x 3.6 x 5.1 cm. No hydronephrosis. Aorta and IVC are unremarkable. IMPRESSION: 1. Normal right upper quadrant ultrasound.
[2019-02-23] MEDS ORDERED: ONDANSETRON HCL INJ/PF 4 MG/2 ML SDV IV ONE (00:18)
[2019-02-23] MEDS ORDERED: FENTANYL CITRATE INJ/PF 100 MCG/2 ML AMPUL IV ONE (00:18)
--- NOTE | 2019-02-23 01:27 | RADIOLOGY REPORT (SQ) ---
CLINICAL HISTORY: RLQ pain COMPARISON: None. TECHNIQUE: CT ABDOMEN PELVIS WITH IV CONTRAST on 02/23/2019 12:18 AM CDT This exam was performed according to our departmental dose-optimization program, which includes automated exposure control, adjustment of the mA and/or kV according to patient size and/or use of iterative reconstruction technique. FINDINGS: Lower lungs are clear. Abdomen: The liver is normal in appearance. There is no biliary dilatation. Gallbladder is normal in appearance. The pancreas and spleen are normal in appearance. The adrenal glands and kidneys are unremarkable. Abdominal aorta is normal in course and caliber without aneurysm. There is no free air. There is no retroperitoneal adenopathy. Pelvis: There is no bowel obstruction. Urinary bladder is unremarkable. There is no free fluid. Uterus is normal in size. Appendix is normal. Skeleton: There are no acute osseous findings. No suspicious bony lesions. IMPRESSION: No acute inflammatory process. No renal or ureteral calculi.
--- NOTE | 2019-02-23 02:26 | ER Document Report ---
ED General - General Chief Complaint: Flank Pain Stated Complaint: ABDOMINAL PAIN Time Seen by Provider: 02/22/19 19:16 Primary Care Provider: [facility] [Provider Group] - Follow up as needed [facility] [Provider Group] - Follow up as needed ALLI DE LOS SANTOS FNP-C [NO LOCAL MD] - Follow up as needed Mode of Arrival: Ambulatory Notes: RME NOTE: 23-year-old female presented to ED for right flank pain since last night. She states she did have some nausea but no nausea right now. She states she had a similar pain a couple years ago while she was in high school she graduated in 2016. He states that that time they told her it was something to do with her kidney. She states the pain is like a crampy hot pressure feeling in the front and back of her flank area. Patient is alert oriented respirations regular nonlabored speaking in full sentences walks with even steady gait. She states she is on control and her periods are never normal so she thinks her last period was in December. MY HPI: Patient is denying any dysuria or vaginal discharge. She is currently complaining of nausea. Patient's denying any vomiting or diarrhea. Patient's denying any trauma or injury to her abdomen. Upon my assessment patient does have pain in her right lower quadrant. TRAVEL OUTSIDE OF THE [place] IN LAST 30 DAYS: No - Related Data Allergies/Adverse Reactions: latex Allergy (Unknown, Verified 01/11/19 17:01) adhesive Allergy (Verified 01/11/19 17:01) nickel Allergy (Verified 01/11/19 17:01) ANTS Allergy (Uncoded 01/11/19 17:01) electrode gel Allergy (Uncoded 01/11/19 17:01) FISH Allergy (Uncoded 01/11/19 17:01) thimerosal Allergy (Uncoded 01/11/19 17:01) Past Medical History - General Information source: Patient - Social History Smoking Status: Unknown if Ever Smoked Family History: Reviewed & Not Pertinent, Other Patient has suicidal ideation: No Patient has homicidal ideation: No - Past Medical History Cardiac Medical History: Denies: Hx Coronary Artery Disease, Hx Heart Attack, Hx Hypertension Pulmonary Medical History: Denies: Hx Asthma, Hx Bronchitis, Hx COPD, Hx Pneumonia Neurological Medical History: Reports: Hx Migraine. Denies: Hx Cerebrovascular Accident, Hx Seizures Renal/ Medical History: Denies: Hx Peritoneal Dialysis Musculoskeletal Medical History: Reports Hx Arthritis, Reports Hx Musculoskeletal Deformity, Reports Hx Musculoskeletal Trauma Psychiatric Medical History: Reports: Hx Anxiety, Hx Attention Deficit Hyperactivity Disorder - Anxiety, Hx Depression Traumatic Medical History: Reports: Hx Fractures Past Surgical History: Reports: Hx Orthopedic Surgery - left ankle - Immunizations Immunizations up to date: Yes Hx Diphtheria, Pertussis, Tetanus Vaccination: Yes Review of Systems - Review of Systems Constitutional: denies: Fever EENT: No symptoms reported Cardiovascular: No symptoms reported Respiratory: No symptoms reported Gastrointestinal: See HPI Genitourinary: See HPI Female Genitourinary: See HPI Musculoskeletal: See HPI Skin: No symptoms reported Hematologic/Lymphatic: No symptoms reported Neurological/Psychological: No symptoms reported Physical Exam - Vital signs Vitals: Temp Pulse Resp BP Pulse Ox 98.0 F 100 16 116/61 100 02/22/19 19:22 02/22/19 19:22 02/22/19 19:22 02/22/19 19:22 02/22/19 19:22 - Notes Notes: GENERAL: Alert, interacts well. No acute distress. HEAD: Normocephalic, atraumatic. EYES: Pupils equal, round, and reactive to light. Extraocular movements intact. ENT: Oral mucosa moist, tongue midline. NECK: Full range of motion. Supple. Trachea midline. LUNGS: Clear to auscultation bilaterally, no wheezes, rales, or rhonchi. No respiratory distress. HEART: Regular rate and rhythm. No murmur ABDOMEN: Soft, right lower abdominal pain noted. No pelvic pain noted bilaterally. Non-distended. Bowel sounds present in all 4 quadrants. Otherwise abdominal exam benign. EXTREMITIES: Moves all 4 extremities spontaneously. No edema, normal radial and dorsalis pedis pulses bilaterally. No cyanosis. BACK: no cervical, thoracic, lumbar midline tenderness. No saddle anesthesia, normal distal neurovascular exam. Slight right CVA tenderness noted. No left CVA tenderness noted. NEUROLOGICAL: Alert and oriented x3. Normal speech. cranial nerves II through XII grossly intact. PSYCH: Normal affect, normal mood. SKIN: Warm, dry, normal turgor. No rashes or lesions noted. Course - Re-evaluation Re-evalutation: 02/23/19 02:23 Laboratory 02/22/19 02/22/19 02/22/19 20:30 20:30 20:30 WBC 8.6 RBC 4.30 Hgb 13.5 Hct 39.3 MCV 91 MCH 31.4 MCHC 34.4 RDW 12.6 Plt Count 356 Lymph % (Auto) 27.0 [place] % (Auto) 4.3 Eos % (Auto) 1.6 Baso % (Auto) 0.7 Absolute Neuts (auto) 5.7 Absolute Lymphs (auto) 2.3 Absolute Monos (auto) 0.4 Absolute Eos (auto) 0.1 Absolute Basos (auto) 0.1 Seg Neutrophils % 66.4 Sodium 141.6 Potassium 4.2 Chloride 107 Carbon Dioxide 23 Anion Gap 12 BUN 18 Creatinine 0.80 Est GFR ( Amer) > 60 Est GFR (MDRD) Non-Af > 60 Glucose 81 Calcium 9.5 Total Bilirubin 0.2 Direct Bilirubin 0.1 Neonat Total Bilirubin Not Reportable Neonat Direct Bilirubin Not Reportable Neonat Indirect Bili Not Reportable AST 20 ALT 15 Alkaline Phosphatase 34 L Total Protein 7.4 Albumin 4.5 Lipase 330.6 H Beta HCG, Quant < 2.39 Total Beta HCG NEGATIVE Urine Color YELLOW Urine Appearance SLIGHTLY-CLOUDY Urine pH 5.0 Ur Specific Parks 1.024 Urine Protein NEGATIVE Urine Glucose (UA) NEGATIVE Urine Ketones NEGATIVE Urine Blood NEGATIVE Urine Nitrite (Reflex) NEGATIVE Urine Bilirubin NEGATIVE Urine Urobilinogen NEGATIVE Leukocyte Esterase Rfl NEGATIVE Urine RBC (Auto) 2 Urine WBC (Reflex) 2 Squamous Epi Cells Auto 7 Urine Mucus (Auto) RARE Urine Ascorbic Acid 40 H Abdomen Ultrasound 02/22/19 19:20 IMPRESSION: 1. Normal right upper quadrant ultrasound. Abdomen/Pelvis CT 02/23/19 00:18 IMPRESSION: No acute inflammatory process. No renal or ureteral calculi. Initial orders placed by [facility] provider. Upon my assessment Pt. has no RUQ pain, it is all RLQ pain. No pelvic pain noted. After treatments in the emergency room patient voices she overall feels better. Patient voices she is uninsured, will provide her phone numbers for [facility]. Discussed with her slight elevation in her lipase. Also discussed negative ultrasound and CT imaging. Discussed close follow-up at [facility]. Patient stable for discharge. patient continues to deny any vaginal discharge. Discussed with her her right lower abdominal pain could be pelvic in nature. Reassessment of patient's abdomen reveals no pelvic pain noted. Patient is wishing to decline pelvic exam at this time. - Vital Signs Vital signs: Temp Pulse Resp BP Pulse Ox 98.2 F 91 16 112/62 100 02/22/19 23:30 02/22/19 23:30 02/22/19 23:30 02/22/19 23:30 02/22/19 23:30 - Laboratory Result Diagrams: 02/22/19 20:30 02/22/19 20:30 Laboratory results interpreted by me: 02/22/19 02/22/19 20:30 20:30 Alkaline Phosphatase 34 L Lipase 330.6 H Urine Ascorbic Acid 40 H Discharge - Discharge Clinical Impression: Nausea Abdominal pain Qualifiers: Abdominal location: lower abdomen, unspecified Qualified Code(s): R10.30 - Lower abdominal pain, unspecified Condition: Stable Disposition: HOME, SELF-CARE Instructions: Abdominal Pain ([facility]) Additional Instructions: As we discussed you have been seen and treated in the emergency department for your abdominal pain. Please make sure use nausea medication only as needed. Please follow-up with [facility] in the next 12 to 24 hours. Please return to the emergency room for any concerns. Prescriptions: Ondansetron [Zofran Odt 4 mg Tablet] 1 tab PO Q6 PRN #10 tab.rapdis PRN Reason: For Nausea/Vomiting Forms: Return to Work Referrals: ALLI DE LOS SANTOS FNP-C [NO LOCAL MD] - Follow up as needed [facility] [Provider Group] - Follow up as needed [facility] [Provider Group] - Follow up as needed
[2019-02-23 02:58] VITALS: BP 114/66
== END 2019-02-23 02:59 | disposition home or self-care (01) ==
LOC: ER 19:00
DX: R10.30 Lower abdominal pain, unspecified (principal); R11.0 Nausea
CPT/HCPCS: 36415; 84702; 83690; 85025; 80053; 81001; 76705; 74177; J3010; J2405; J7030; 96361; 96374; 96375; 99284

== ENCOUNTER 2019-05-04 15:30 | Emergency (ER) | payer MEDICAID ==
[2019-05-04 16:11] LABS: ABSOLUTE EOSINOPHILS # (AUTO) 0.1 10^3/uL (0.0-0.6); ABSOLUTE LYMPHOCYTES (AUTO) 2.5 10^3/uL (0.5-4.7); ABSOLUTE MONOCYTES (AUTO) 0.3 10^3/uL (0.1-1.4); ABSOLUTE NEUT (AUTO) 4.1 10^3/uL (1.7-8.2); BASOPHILS % (AUTO) 0.5 % (0-2); EOSINOPHILS % (AUTO) 1.1 % (0-6); HEMATOCRIT 39.7 % (36.0-47.0); HEMOGLOBIN 13.6 g/dL (12.0-15.5); LYMPHOCYTES % (AUTO) 35.7 % (13-45); MEAN CORPUSCULAR HEMOGLOBIN 31.3 pg (27.0-33.4); MEAN CORPUSCULAR HGB CONC 34.3 g/dL (32.0-36.0); MEAN CORPUSCULAR VOLUME 91 fl (80-97); MONOCYTES % (AUTO) 4.6 % (3-13); PLATELET COUNT 320 10^3/uL (150-450); RED BLOOD COUNT 4.34 10^6/uL (3.72-5.28); RED CELL DISTRIBUTION WIDTH 11.9 % (11.5-14.0); SEGMENTED NEUTROPHILS % (AUTO) 58.1 % (42-78); TOTAL CELLS COUNTED % (AUTO) 100 %
[2019-05-04] MEDS ORDERED: NORMAL SALINE 1000 ML 1,000 ML IV ONE (16:25)
[2019-05-04] MEDS ORDERED: METOPROLOL SUCCINATE 25 MG TAB.SR.24H PO ONE (16:26)
[2019-05-04 16:34] LABS: ALKALINE PHOSPHATASE 40 U/L (38-126); ANION GAP 17 (5-19); ASPARTATE AMINO TRANSFERASE 25 U/L (14-36); BILIRUBIN,DIRECT 0.2 mg/dL (0.0-0.4); BILIRUBIN,TOTAL 0.3 mg/dL (0.2-1.3); BLOOD UREA NITROGEN 13 mg/dL (7-20); CARBON DIOXIDE 25 mmol/L (22-30); CHLORIDE 99 mmol/L (98-107); CREATINE KINASE 83 U/L (30-135); GLUCOSE 88 mg/dL (75-110); TOTAL PROTEIN 8.3 g/dL (6.3-8.2)
[2019-05-04 16:46] LABS: CREATINE KINASE MB 0.48 ng/mL (<4.55)
[2019-05-04 16:47] LABS: TROPONIN I < 0.012 ng/mL
--- NOTE | 2019-05-04 17:04 | RADIOLOGY REPORT (SQ) ---
EXAM DESCRIPTION: CHEST 2 VIEWS COMPLETED DATE/TIME: 05/04/2019 4:43 pm REASON FOR STUDY: cp COMPARISON: 01/11/2019 EXAM PARAMETERS: NUMBER OF VIEWS: two views TECHNIQUE: Digital Frontal and Lateral radiographic views of the chest acquired. RADIATION DOSE: NA LIMITATIONS: none FINDINGS: LUNGS AND PLEURA: No opacities, masses or pneumothorax. No pleural effusion. MEDIASTINUM AND HILAR STRUCTURES: No masses or contour abnormalities. HEART AND VASCULAR STRUCTURES: Heart normal size. No evidence for failure. BONES: No acute findings. HARDWARE: None in the chest. OTHER: No other significant finding. IMPRESSION: NO ACUTE RADIOGRAPHIC FINDING IN THE CHEST. TECHNICAL DOCUMENTATION: JOB ID: [id number] [employer]- All Rights Reserved Reading location - IP/workstation name: [email or web address]
--- NOTE | 2019-05-04 18:45 | EKG REPORT ---
SEVERITY:- NORMAL ECG - SINUS RHYTHM : Confirmed by: Moshe Monroe MD 04-May-2019 18:44:18
[2019-05-04 19:15] LABS: APPEARANCE,URINE SLIGHTLY-CLOUDY; BILIRUBIN,URINE NEGATIVE (NEGATIVE); COLOR,URINE YELLOW; GLUCOSE, URINE NEGATIVE (NEGATIVE); KETONES,URINE NEGATIVE (NEGATIVE); LEUKOCYTE ESTERASE,URINE MODERATE (NEGATIVE); NITRITE,URINE NEGATIVE (NEGATIVE); PROTEIN,URINE NEGATIVE (NEGATIVE); URINE SPECIFIC GRAVITY 1.021; UROBILINOGEN,URINE NEGATIVE mg/dL (<2.0)
[2019-05-04] MEDS ORDERED: KETOROLAC TROMETHAMINE INJ/PF 30 MG/1 ML SDV IV ONE (19:18)
[2019-05-04] MEDS ORDERED: NORMAL SALINE 1000 ML 1,000 ML IV PRN (19:18)
--- NOTE | 2019-05-04 19:18 | ER Document Report ---
ED General - General Information source: Patient TRAVEL OUTSIDE OF THE [place] IN LAST 30 DAYS: No - HPI Onset: Just prior to arrival Onset/Duration: Sudden Quality of pain: Sharp Pain Level: 5 Associated symptoms: Chest pain, Other - Dizziness, difficulty breathing, abdominal pain, back pain. denies: Nonproductive cough, Productive cough, Fever, Headache, Hurts to breath, Nausea, Vomiting, Weakness Exacerbated by: Denies Relieved by: Denies Similar symptoms previously: No Recently seen / treated by doctor: No <SANDRITA MOODY - Last Filed: 05/04/19 20:08> <SVEN WOLF - Last Filed: 05/04/19 23:07> - General Chief Complaint: Palpitations Stated Complaint: RAPID HEART RATE Time Seen by Provider: 05/04/19 15:51 Primary Care Provider: JORGE SAMUEL MD [Primary Care Provider] - Follow up as needed Notes: Patient presents stating that she has had a pressure to the midsternal chest area off and on for the past 2 days. Patient states she was at work and she started to have difficulty breathing and the pressure became a constant sharp pain that radiated from the chest into the abdomen to the bilateral flank area. Patient denies any nausea vomiting diarrhea or urinary symptoms. Patient did complain of some dizziness. 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 Patient states she ran out of her medication 2 days ago. 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 Lives with: Family Family History: Reviewed & Not Pertinent, Other Patient has suicidal ideation: No Patient has homicidal ideation: No - Medical History Medical History: Other - Nora-Danlos syndrome - Past Medical History 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Mitral valve prolapse, calcifications within the heart, POTS Pulmonary Medical History: Denies: Hx Asthma Neurological Medical History: Reports: Hx Migraine Renal/ Medical History: Denies: Hx Peritoneal Dialysis Musculoskeletal Medical History: Reports Hx Arthritis, Reports Hx Musculoskeletal Deformity, Reports Hx Musculoskeletal Trauma Psychiatric Medical History: Reports: Hx Anxiety, Hx Depression Traumatic Medical History: Reports: Hx Fractures Past Surgical History: Reports: Hx Orthopedic Surgery - left ankle - Immunizations Immunizations up to date: Yes Hx Diphtheria, Pertussis, Tetanus Vaccination: Yes <SANDRITA MOODY - Last Filed: 05/04/19 20:08> Review of Systems - Review of Systems Constitutional: No symptoms reported. denies: Fever, Recent illness EENT: No symptoms reported Cardiovascular: Chest pain, Dizziness Respiratory: Short of breath. denies: Cough Gastrointestinal: Abdominal pain. denies: Diarrhea, Nausea, Vomiting Genitourinary: No symptoms reported. denies: Dysuria Female Genitourinary: No symptoms reported. denies: , Vaginal discharge, Vaginal bleeding Musculoskeletal: Back pain Skin: No symptoms reported Hematologic/Lymphatic: No symptoms reported Neurological/Psychological: No symptoms reported <SANDRITA MOODY - Last Filed: 05/04/19 20:08> Physical Exam - General General appearance: Appears well, Alert In distress: None - HEENT Head: Normocephalic, Atraumatic Eyes: Normal Conjunctiva: Normal Nasal: Normal Mouth/Lips: Normal Mucous membranes: Normal Neck: Normal, Supple. No: Lymphadenopathy - Respiratory Respiratory status: No respiratory distress Chest status: Tender Breath sounds: Normal Chest palpation: Tender - Cardiovascular Rhythm: Tachycardia Heart sounds: S1 appreciated, S2 appreciated Murmur: No - Abdominal Inspection: Normal Distension: No distension Bowel sounds: Normal Tenderness: Tender - Diffuse abdominal tenderness. No: Guarding Organomegaly: No organomegaly - Back Back: Normal. No: CVA tenderness - Extremities General upper extremity: Normal inspection, Normal strength General lower extremity: Other - Cast to left ankle - Neurological Neuro grossly intact: Yes Cognition: Normal [place] Coma Scale Eye Opening: Spontaneous [place] Coma Scale Verbal: Oriented [place] Coma Scale Motor: Obeys Commands [place] Coma Scale Total: 15 - Psychological Associated symptoms: Normal affect, Normal mood - Skin Skin Temperature: Warm Skin Moisture: Dry Skin Color: Normal <SANDRITA MOODY - Last Filed: 05/04/19 20:08> - Vital signs Vitals: Pulse Ox 95 05/04/19 15:34 Course - Laboratory Result Diagrams: 05/04/19 15:50 05/04/19 15:50 <SANDRITA MOODY - Last Filed: 05/04/19 20:08> - Laboratory Result Diagrams: 05/04/19 15:50 05/04/19 15:50 - Diagnostic Test Radiology reviewed: Image reviewed, Reports reviewed <SVEN WOLF - Last Filed: 05/04/19 23:07> - Re-evaluation Re-evalutation: 05/04/19 19:15 On repeat examination, patient continues with abdominal tenderness, patient poin ts to the right lower quadrant although has tenderness to the lower pelvic and epigastric areas. Patient's heart rate has decreased and is currently in the 80s. Will add abdominal imaging at this time. 05/04/19 20:08 Report and handoff given to Renita Wolf WAREHOUSE REPRESENTATIVE (SANDRITA MOODY) 05/04/19 23:[address] with patient. Patient denies any chest pain, abdominal pain, or shortness of breath. She does not feel any palpitations at this time. She states she is ready to go home and will follow-up with her primary doctor. Patient was discharged home after she was able to verbalize understanding and agreement with treatment plan. (SVEN WOLF) - Vital Signs Vital signs: Temp Pulse Resp BP Pulse Ox 97.5 F 25 H 106/71 95 05/04/19 19:01 05/04/19 21:01 05/04/19 21:01 05/04/19 21:01 - Laboratory Laboratory results interpreted by me: 05/04/19 05/04/19 15:50 18:54 Total Protein 8.3 H Ur Leukocyte Esterase MODERATE H Urine Ascorbic Acid 40 H Discharge <JHONATHAN MOODYGABBY - Last Filed: 05/04/19 20:08> <SVEN WOLF - Last Filed: 05/04/19 23:07> - Discharge Clinical Impression: Palpitation Abdominal pain Qualifiers: Abdominal location: generalized Qualified Code(s): R10.84 - Generalized abdominal pain Condition: Stable Disposition: HOME, SELF-CARE Additional Instructions: ABDOMINAL PAIN: There are many causes of abdominal pain. Pain can mean a serious problem requiring surgery (such as appendicitis). It can also be an innocent problem that goes away on its own (such as a viral infection). Often, time must pass to determine the cause of pain. The physician does not feel that hospitalization is necessary, at present. Things may change within the next 24 hours. Call the doctor or come back for re- examination if any problems occur, such as: (1) Pain that becomes more severe, steady, or becomes concentrated in one specific area. Also, pain that is more severe with movement or coughing. (2) Vomiting that persists or becomes more frequent. (3) Blood in the vomitus, urine, or bowel movements. Blood in the stool may have a tarry or black appearance. (4) Shaking chills or fever greater than 100 degrees F. (5) The abdomen becomes more distended or swollen. (6) Bowel movements cease. (7) Failure to improve as expected. Palpitations (Irregular/Rapid Heartrate) Irregular or rapid heartbeat is called "palpitation." To diagnose the cause of palpitation, we have to "catch it in the act" with an EKG. Sinus Tachycardia: This is a rapid (but NORMAL) rhythm that can be due to fever, pain, anxiety, lack of sleep, over-exertion, or drugs. Cold medications, caffeine, and diet pills are particularly likely to cause tachycardia. Usually, all that's required is rest, reassurance, and avoiding caffeine, alcohol, nicotine, and unnecessary medicines. Paroxysmal Atrial Tachycardia (PAT): This abnormally rapid heartbeat is caused by a "short circuit" in the electrical system of the heart. It is not dangerous, unless other heart disease is present. These attacks of PAT may occur occasionally for years. Medication is available for treatment. Paroxysmal Atrial Fibrillation or Atrial Flutter: This is irregular electrical activity in the upper heart chamber. These abnormal rhythms often occur with valve disease or in hearts damaged by hardening of the arteries. These rhythms usually require further testing, for example a cardiac echo. Premature Beats: Extra beats occur more commonly after caffeine, nicotine, alcohol, cold pills, diet pills. Emotional stress or fatigue also provoke them. Extra beats are only dangerous when heart disease is present. They usually need no treatment. If they're frequent, or if evidence of heart disease develops, medication can be given to suppress them. If we were unable to "catch" the palpitations on EKG, you should try to get an EKG immediately if the symptoms begin again. Contact the physician at once if you develop persistent lightheadedness, shortness of breath, chest pain, or s welling of the ankles. NORMAL EXAM AND WORKUP: At this time, your examination and workup show no significant abnormality. No significant abnormal physical findings are noted. All laboratory, EKG, and imaging (x-ray, CT scans, ultrasound) studies that were ordered show no significant abnormality. Although your examination and all studies that were ordered showed no significant abnormal finding, there are no examinations and no studies that are 100% accurate. There is always the possibility that some abnormality could exist and not be detected with physical examination or within the limits and capabilities of laboratory and other studies. You should return or follow up as you were instructed on your visit today for further evaluation if your symptoms do not resolve. I have discussed your CT and lab results with you and I have given you a written report of all your labs and CT. Please follow-up with your primary doctor for any future concerns. Heart rate is 82 at this time and you denied any pain or discomfort at this time. TORADOL INJECTION: You have been given an injection of ketorolac tromethamine (Toradol). This is an excellent, safe drug for pain control. It also has potent antiinflammatory action. You should have significant pain relief within about one hour. Toradol is not addicting and is non-sedating. It does not interfere with driving or work. Call or return if you develop itching, hives, shortness of breath, or rash. Intravenous (IV) Fluids As part of your care today, you received intravenous (IV) fluids. IV fluids are administered to patients who are dehydrated or to those who have certain chemical (electrolyte) abnormalities that need correcting. FOLLOW-UP CARE: If you have been referred to a physician for follow-up care, call the physicians office for an appointment as you were instructed or within the next two days. If you experience worsening or a significant change in your symptoms, notify the physician immediately or return to the Emergency Department at any time for re-evaluation. Forms: Return to Work Referrals: JORGE SAMUEL MD [Primary Care Provider] - Follow up in 3-5 days
--- NOTE | 2019-05-04 22:42 | RADIOLOGY REPORT (SQ) ---
EXAM DESCRIPTION: RadLex: CT ABDOMEN PELVIS WITH IV CONTRAST CLINICAL HISTORY: 23 years Female; abd pain TECHNIQUE: CT of the abdomen and pelvis using intravenous contrast. Oral contrast was administered. All CT scans at this facility use dose modulation, iterative reconstruction, and/or weight based dosing when appropriate to reduce radiation dose to as low as reasonably achievable. COMPARISON: CT 02/23/2019 FINDINGS: Abdomen: Liver:No focal lesions. No intrahepatic ductal distention. Gallbladder:Nondistended Pancreas:Within normal limits Spleen:Within normal limits Right kidney:No hydronephrosis. No focal lesion. Left kidney:No hydronephrosis. No focal lesion. Adrenal glands:Within normal limits Vascular structures:Within normal limits Pelvis: Small bowel:No significant distention. Appendix: Contrast-filled, nondistended. No adjacent edema. Colon:No distention or acute pericolonic edema. Oral contrast is seen down to the distal transverse colon, with no evidence for obstruction. No free intraperitoneal fluid or air. Bones: No acute bone findings. Bladder: Unremarkable. Uterus is unremarkable. No adnexal enlargement. IMPRESSION: 1. Normal CT of the abdomen and pelvis with contrast.
[2019-05-04 23:10] VITALS: BP 109/68
== END 2019-05-04 23:20 | disposition home or self-care (01) ==
LOC: ER 15:30
DX: R00.2 Palpitations (principal); R07.89 Other chest pain; R42 Dizziness and giddiness; R10.84 Generalized abdominal pain; R10.817 Generalized abdominal tenderness; M54.9 Dorsalgia, unspecified; R06.02 Shortness of breath; Z91.040 Latex allergy status; Z91.048 Other nonmedicinal substance allergy status; Z91.038 Other insect allergy status; Z91.013 Allergy to seafood; Z88.8 Allergy status to other drugs, medicaments and biological substances
CPT/HCPCS: 93005; 99285; 96361; 96374; 36415; 82553; 82550; 83690; 84703; 85025; 80053; 81001; 84484; 85379; 71046; 74177; 93010; J1885; J7030; J3490

== ENCOUNTER 2019-07-19 14:25 | Emergency (ER) | payer MEDICAID ==
--- NOTE | 2019-07-19 15:18 | ER Document Report ---
ED Medical Screen (RME) - General Chief Complaint: Dizziness Stated Complaint: DIZZINESS Time Seen by Provider: 07/19/19 15:12 Primary Care Provider: JORGE SAMUEL MD [Primary Care Provider] - Follow up as needed Mode of Arrival: Medic Information source: Patient Notes: 23-year-old female with history of pots and EDS presents to the emergency department with reports of syncope x2 today while she was at work. Reports she was sitting in the break room waiting to go to work when she passed out twice, unwitnessed. Did not hit her head. She reports she recently started a new medication gabapentin couple days ago. Patient reports she is having some double vision and dizziness. Denies fever vomiting diarrhea. Denies . I have greeted and performed a rapid initial assessment of this patient. A comprehensive ED assessment and evaluation of the patient, analysis of test results and completion of the medical decision making process will be conducted by additional ED providers. TRAVEL OUTSIDE OF THE [place] IN LAST 30 DAYS: No - Related Data Allergies/Adverse Reactions: latex Allergy (Unknown, Verified 01/11/19 17:01) adhesive Allergy (Verified 01/11/19 17:01) nickel Allergy (Verified 01/11/19 17:01) ANTS Allergy (Uncoded 01/11/19 17:01) electrode gel Allergy (Uncoded 01/11/19 17:01) FISH Allergy (Uncoded 01/11/19 17:01) thimerosal Allergy (Uncoded 01/11/19 17:01) Past Medical History - Past Medical History Cardiac Medical History: Denies: Hx Coronary Artery Disease, Hx Heart Attack, Hx Hypertension Pulmonary Medical History: Denies: Hx Asthma, Hx Bronchitis, Hx COPD, Hx Pneumonia Neurological Medical History: Reports: Hx Migraine. Denies: Hx Cerebrovascular Accident, Hx Seizures Renal/ Medical History: Denies: Hx Peritoneal Dialysis Musculoskeltal Medical History: Reports Hx Arthritis, Reports Hx Musculoskeletal Deformity, Reports Hx Musculoskeletal Trauma Psychiatric Medical History: Reports: Hx Anxiety, Hx Attention Deficit Hyperactivity Disorder - Anxiety, Hx Depression Traumatic Medical History: Reports: Hx Fractures Past Surgical History: Reports: Hx Orthopedic Surgery - left ankle - Immunizations Immunizations up to date: Yes Hx Diphtheria, Pertussis, Tetanus Vaccination: Yes Doctor's Discharge - Discharge Referrals: JORGE SAMUEL MD [Primary Care Provider] - Follow up as needed
[2019-07-19 16:16] LABS: APPEARANCE,URINE SLIGHTLY-CLOUDY; BILIRUBIN,URINE NEGATIVE (NEGATIVE); COLOR,URINE YELLOW; GLUCOSE, URINE NEGATIVE (NEGATIVE); KETONES,URINE NEGATIVE (NEGATIVE); LEUKOCYTE ESTERASE,URINE TRACE (NEGATIVE); NITRITE,URINE NEGATIVE (NEGATIVE); PROTEIN,URINE NEGATIVE (NEGATIVE); URINE SPECIFIC GRAVITY 1.013; UROBILINOGEN,URINE NEGATIVE mg/dL (<2.0)
[2019-07-19] MEDS ORDERED: NORMAL SALINE 1000 ML 1,000 ML IV ONE (16:26)
[2019-07-19] MEDS ORDERED: MECLIZINE HCL 25 MG TABLET PO ONE (16:26)
[2019-07-19] MEDS ORDERED: ONDANSETRON HCL INJ/PF 4 MG/2 ML SDV IV ONE (16:26)
[2019-07-19 16:29] LABS: ABSOLUTE BASOPHILS # (AUTO) 0.1 10^3/uL (0.0-0.2); ABSOLUTE EOSINOPHILS # (AUTO) 0.1 10^3/uL (0.0-0.6); ABSOLUTE LYMPHOCYTES (AUTO) 2.4 10^3/uL (0.5-4.7); ABSOLUTE MONOCYTES (AUTO) 0.3 10^3/uL (0.1-1.4); ABSOLUTE NEUT (AUTO) 4.8 10^3/uL (1.7-8.2); ALBUMIN 5.5 g/dL (3.5-5.0); ALKALINE PHOSPHATASE 37 U/L (38-126); ANION GAP 14 (5-19); ASPARTATE AMINO TRANSFERASE 25 U/L (14-36); BASOPHILS % (AUTO) 1.3 % (0-2); BILIRUBIN,TOTAL 0.3 mg/dL (0.2-1.3); BLOOD UREA NITROGEN 10 mg/dL (7-20); CALCIUM 10.2 mg/dL (8.4-10.2); CARBON DIOXIDE 23 mmol/L (22-30); CHLORIDE 102 mmol/L (98-107); EOSINOPHILS % (AUTO) 0.8 % (0-6); GLUCOSE 72 mg/dL (75-110); HEMATOCRIT 43.4 % (36.0-47.0); HEMOGLOBIN 14.7 g/dL (12.0-15.5); LYMPHOCYTES % (AUTO) 31.8 % (13-45); MEAN CORPUSCULAR HEMOGLOBIN 31.5 pg (27.0-33.4); MEAN CORPUSCULAR HGB CONC 33.8 g/dL (32.0-36.0); MEAN CORPUSCULAR VOLUME 93 fl (80-97); MONOCYTES % (AUTO) 3.8 % (3-13); POTASSIUM 4.5 mmol/L (3.6-5.0); RED BLOOD COUNT 4.66 10^6/uL (3.72-5.28); SEGMENTED NEUTROPHILS % (AUTO) 62.3 % (42-78); TOTAL CELLS COUNTED % (AUTO) 100 %; TOTAL PROTEIN 9.1 g/dL (6.3-8.2); WHITE BLOOD COUNT 7.7 10^3/uL (4.0-10.5)
--- NOTE | 2019-07-19 16:30 | ER Document Report ---
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 The patient reports at baseline she is prone to syncopal episodes in relation to the pots. She states this however feels different. She states this morning wh en she awoke around 7 AM she was nauseous. She took a Zofran which helped. She states she got to work around 830 this morning and while waiting to clock and was sitting down at a table. She states she had to syncopal episodes that she describes as everything going black and then passing out. They were unwitnessed but she states that she did not hit her head. She states when she woke up she was lying her head on her purse that was on the table. She admits to other transient symptoms including a right occipital headache, left lower quadrant cramping and back pain. She denies any urinary complaints, vaginal bleeding or discharge. No fever or diarrhea. No chest pain or shortness of breath. TRAVEL OUTSIDE OF THE [place] IN LAST 30 DAYS: No - Related Data Allergies/Adverse Reactions: latex Allergy (Unknown, Verified 01/11/19 17:01) adhesive Allergy (Verified 01/11/19 17:01) nickel Allergy (Verified 01/11/19 17:01) ANTS Allergy (Uncoded 01/11/19 17:01) electrode gel Allergy (Uncoded 01/11/19 17:01) FISH Allergy (Uncoded 01/11/19 17:01) thimerosal Allergy (Uncoded 01/11/19 17:01) Past Medical History - General Information source: Patient - Social History Smoking Status: Never Smoker Family History: Reviewed & Not Pertinent, Other Patient has suicidal ideation: No Patient has homicidal ideation: No - Past Medical History Cardiac Medical History: Denies: Hx Coronary Artery Disease, Hx Heart Attack, Hx Hypertension Pulmonary Medical History: Denies: Hx Asthma, Hx Bronchitis, Hx COPD, Hx Pneumonia Neurological Medical History: Reports: Hx Migraine. Denies: Hx Cerebrovascular Accident, Hx Seizures Renal/ Medical History: Denies: Hx Peritoneal Dialysis Musculoskeletal Medical History: Reports Hx Arthritis, Reports Hx Musculoskeletal Deformity, Reports Hx Musculoskeletal Trauma Psychiatric Medical History: Reports: Hx Anxiety, Hx Attention Deficit Hyperactivity Disorder - Anxiety, Hx Depression Traumatic Medical History: Reports: Hx Fractures Past Surgical History: Reports: Hx Orthopedic Surgery - left ankle - Immunizations Immunizations up to date: Yes Hx Diphtheria, Pertussis, Tetanus Vaccination: Yes Review of Systems - Review of Systems Cardiovascular: Syncope, Dizziness Respiratory: No symptoms reported Gastrointestinal: Abdominal pain, Nausea Neurological/Psychological: Lost consciousness, Headaches -: Yes All other systems reviewed and negative Physical Exam - Vital signs Vitals: Temp Pulse Resp BP Pulse Ox 99.1 F 96 16 124/77 96 07/19/19 15:17 07/19/19 15:17 07/19/19 15:17 07/19/19 15:17 07/19/19 15:17 - General General appearance: Alert In distress: Mild - HEENT Head: Normocephalic, Atraumatic Eyes: Normal Conjunctiva: Normal Extraocular movements intact: Yes Eyelashes: Normal Pupils: PERRL Ears: Normal External canal: Normal Tympanic membrane: Normal Sinus: Normal Nasal: Normal Mouth/Lips: Normal Mucous membranes: Normal, Moist Pharynx: Normal Neck: Normal - Respiratory Respiratory status: No respiratory distress Chest status: Nontender Breath sounds: Normal Chest palpation: Normal - Cardiovascular Rhythm: Regular Heart sounds: Normal auscultation Murmur: No - Abdominal Inspection: Normal Distension: No distension Bowel sounds: Normal Tenderness: Nontender Organomegaly: No organomegaly - Back Back: No: CVA tenderness - Neurological Neuro grossly intact: Yes Cognition: Normal Orientation: AAOx4 [place] Coma Scale Eye Opening: Spontaneous [place] Coma Scale Verbal: Oriented [place] Coma Scale Motor: Obeys Commands [place] Coma Scale Total: 15 Speech: Normal Cranial nerves: Normal Cerebellar coordination: Normal Motor strength normal: LUE, RUE, LLE, RLE 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 Her work-up is largely unremarkable. Suspect gabapentin as the culprit causing adverse reactions as it is a fairly new medication. She will discontinue this medicine and call her surgeon for other options. Counseled her at length regarding the importance of outpatient follow- up and advised that she return here or any ER immediately with any new, persistent or worsening symptoms. She verbalized understood and agreed. - Vital Signs Vital signs: Temp Pulse Resp BP Pulse Ox 99.1 F 96 16 124/77 96 07/19/19 15:17 07/19/19 15:17 07/19/19 15:17 07/19/19 15:17 07/19/19 15:17 - Laboratory Result Diagrams: 07/19/19 15:39 07/19/19 15:39 Laboratory results interpreted by me: 07/19/19 07/19/19 15:39 15:39 Glucose 72 L Alkaline Phosphatase 37 L Total Protein 9.1 H Albumin 5.5 H Ur Leukocyte Esterase TRACE H Discharge - Discharge Clinical Impression: Dizziness Nausea and vomiting Qualifiers: Vomiting type: unspecified Vomiting Intractability: unspecified Qualified Code(s): R11.2 - Nausea with vomiting, unspecified Disposition: HOME, SELF-CARE Instructions: Vertigo ([facility]), Meclizine ([facility]) Additional Instructions: Follow-up with your regular doctor in 2 to 3 days for reevaluation. Return here or any ER immediately with any new, persistent or worsening symptoms. Prescriptions: Meclizine HCl 25 mg PO DAILY PRN #20 tablet PRN Reason: Referrals: JORGE SAMUEL MD [EMERITUS] - Follow up as needed
[2019-07-19 16:38] LABS: URINE AMPHETAMINES SCREEN NEGATIVE; URINE BARBITURATES SCREEN NEGATIVE; URINE BENZODIAZEPINES SCREEN NEGATIVE; URINE COCAINE SCREEN NEGATIVE; URINE MARIJUANA (THC) SCREEN NEGATIVE; URINE METHADONE SCREEN NEGATIVE; URINE PHENCYCLIDINE SCREEN NEGATIVE
[2019-07-19 16:51] LABS: PLATELET COUNT 168 10^3/uL (150-450)
--- NOTE | 2019-07-19 17:07 | RADIOLOGY REPORT (SQ) ---
EXAM DESCRIPTION: CT HEAD WITHOUT COMPLETED DATE/TIME: 07/19/2019 4:46 pm REASON FOR STUDY: dizzy,syncopal COMPARISON: None. TECHNIQUE: Axial images acquired through the brain without intravenous contrast. Images reviewed wit h bone, brain and subdural windows. Images stored on PACS. All CT scanners at this facility use dose modulation, iterative reconstruction, and/or weight based d osing when appropriate to reduce radiation dose to as low as reasonably achievable (ALARA). [facility]: Dose Right [facility]: CareDose [facility]: Dose Right [facility]: Teradose 4D [facility]: Smart [employer] RADIATION DOSE: CT Rad equipment meets quality standard of care and radiation dose reduction techniq ues were employed. CTDIvol: 53.2 mGy. DLP: 884 mGy-cm.. LIMITATIONS: None. FINDINGS: VENTRICLES: Normal size and contour. CEREBRUM: No masses. No hemorrhage. No midline shift. Age appropriate white matter. No evidence for a cute infarction. CEREBELLUM: No masses. No hemorrhage. No alteration of density. No evidence for acute infarction. EXTRA-AXIAL SPACES: No fluid collections. ORBITS AND GLOBE: No intra- or extraconal masses. Normal contour of globe without masses. CALVARIUM: No fracture. PARANASAL SINUSES: No fluid or mucosal thickening. SOFT TISSUES: No mass or hematoma. OTHER: No other significant finding. IMPRESSION: NO ACUTE INTRACRANIAL FINDINGS. EVIDENCE OF ACUTE STROKE: NO. TECHNICAL DOCUMENTATION: JOB ID: [id number] [place]-72 Quality ID # [id number]: Final reports with documentation of one or more dose reduction techniques (e.g., Au tomated exposure control, adjustment of the mA and/or kV according to patient size, use of iterative reconstruction technique) 2010 [employer]- All Rights Reserved Reading location - IP/workstation name: [email or web address]
--- NOTE | 2019-07-19 17:17 | RADIOLOGY REPORT (SQ) ---
EXAM DESCRIPTION: CHEST 2 VIEWS COMPLETED DATE/TIME: 07/19/2019 5:02 pm REASON FOR STUDY: dizzy,syncopal COMPARISON: 05/04/2019 TECHNIQUE: Frontal and lateral radiographic views of the chest acquired. NUMBER OF VIEWS: Two view. LIMITATIONS: None. FINDINGS: LUNGS AND PLEURA: No pneumothorax. No consolidation or pleural effusion. MEDIASTINUM AND HILAR STRUCTURES: Stable. HEART AND VASCULAR STRUCTURES: Stable. BONES: No acute findings. HARDWARE: None in the chest. OTHER: No other significant finding. IMPRESSION: NO ACUTE FINDINGS. TECHNICAL DOCUMENTATION: JOB ID: [id number] [place]-72 2010 [employer]- All Rights Reserved Reading location - IP/workstation name: [email or web address]
[2019-07-19 19:21] VITALS: BP 103/65
--- NOTE | 2019-07-20 00:31 | EKG REPORT ---
SEVERITY:- NORMAL ECG - SINUS RHYTHM : Confirmed by: Naun Manzano 20-Jul-2019 00:29:43
== END 2019-07-19 19:21 | disposition home or self-care (01) ==
LOC: ER 14:25
DX: R42 Dizziness and giddiness (principal); R11.2 Nausea with vomiting, unspecified; R55 Syncope and collapse; Z91.040 Latex allergy status
CPT/HCPCS: 93005; 99285; 96361; 96374; 36415; 82962; 84703; 85025; 80053; 81001; 80307; 71046; 70450; 93010; J2405; J7030

== ENCOUNTER 2019-09-20 15:44 | Emergency (ER) | payer MEDICAID ==
--- NOTE | 2019-09-20 16:03 | ER Document Report ---
ED Medical Screen (RME) - General Chief Complaint: Flank Pain Stated Complaint: RIGHT FLANK PAIN Time Seen by Provider: 09/20/19 15:57 Primary Care Provider: TAMAR MONTANO NP [Primary Care Provider] - Follow up as needed Mode of Arrival: Ambulatory Information source: Patient Notes: 23-year-old female patient presented emergency department chief complaint of right back pain and irregular vaginal bleeding. Patient reports that she thinks she could possibly be . She has taken multiple home test without relief. She reports she has nausea, headaches and an enhanced sense of smell. Abdomen soft, nontender, no guarding or rebound. I have greeted and performed a rapid initial assessment of this patient. A comprehensive ED assessment and evaluation of the patient, analysis of test results and completion of the medical decision making process will be conducted by additional ED providers. I have specifically instructed the patient or fami ly members with the patient to immediately return to any nursing staff should anything change in the patient's condition or with their chief complaint. TRAVEL OUTSIDE OF THE [place] IN LAST 30 DAYS: No - Related Data Allergies/Adverse Reactions: latex Allergy (Unknown, Verified 09/20/19 15:56) adhesive Allergy (Verified 09/20/19 15:56) nickel Allergy (Verified 09/20/19 15:56) ANTS Allergy (Uncoded 09/20/19 15:56) electrode gel Allergy (Uncoded 09/20/19 15:56) FISH Allergy (Uncoded 09/20/19 15:56) thimerosal Allergy (Uncoded 09/20/19 15:56) Past Medical History - Social History Chew tobacco use (# tins/day): No Frequency of alcohol use: None Drug Abuse: None - Past Medical History Cardiac Medical History: Denies: Hx Coronary Artery Disease, Hx Heart Attack, Hx Hypertension Pulmonary Medical History: Denies: Hx Asthma, Hx Bronchitis, Hx COPD, Hx Pneumonia Neurological Medical History: Reports: Hx Migraine. Denies: Hx Cerebrovascular Accident, Hx Seizures Renal/ Medical History: Denies: Hx Peritoneal Dialysis Musculoskeltal Medical History: Reports Hx Arthritis, Reports Hx Musculoskeletal Deformity, Reports Hx Musculoskeletal Trauma Psychiatric Medical History: Reports: Hx Anxiety, Hx Attention Deficit Hyperactivity Disorder - Anxiety, Hx Depression Traumatic Medical History: Reports: Hx Fractures Past Surgical History: Reports: Hx Orthopedic Surgery - left ankle - Immunizations Immunizations up to date: Yes Hx Diphtheria, Pertussis, Tetanus Vaccination: Yes Physical Exam - Vital signs Vitals: Temp Pulse Resp BP Pulse Ox 98.0 F 95 20 128/80 H 100 09/20/19 15:48 09/20/19 15:48 09/20/19 15:48 09/20/19 15:48 09/20/19 15:48 Course - Vital Signs Vital signs: Temp Pulse Resp BP Pulse Ox 98.0 F 95 20 128/80 H 100 09/20/19 15:56 09/20/19 15:48 09/20/19 15:48 09/20/19 15:48 09/20/19 15:48 Doctor's Discharge - Discharge Referrals: TAMAR MONTANO NP [Primary Care Provider] - Follow up as needed
[2019-09-20 16:40] LABS: ABSOLUTE EOSINOPHILS # (AUTO) 0.1 10^3/uL (0.0-0.6); ABSOLUTE LYMPHOCYTES (AUTO) 2.1 10^3/uL (0.5-4.7); ABSOLUTE MONOCYTES (AUTO) 0.4 10^3/uL (0.1-1.4); ABSOLUTE NEUT (AUTO) 4.4 10^3/uL (1.7-8.2); BASOPHILS % (AUTO) 0.5 % (0-2); EOSINOPHILS % (AUTO) 1.2 % (0-6); HEMATOCRIT 39.5 % (36.0-47.0); HEMOGLOBIN 13.8 g/dL (12.0-15.5); LYMPHOCYTES % (AUTO) 29.8 % (13-45); MEAN CORPUSCULAR HEMOGLOBIN 31.8 pg (27.0-33.4); MEAN CORPUSCULAR HGB CONC 34.8 g/dL (32.0-36.0); MEAN CORPUSCULAR VOLUME 91 fl (80-97); MONOCYTES % (AUTO) 5.1 % (3-13); PLATELET COUNT 363 10^3/uL (150-450); RED BLOOD COUNT 4.32 10^6/uL (3.72-5.28); RED CELL DISTRIBUTION WIDTH 12.5 % (11.5-14.0); SEGMENTED NEUTROPHILS % (AUTO) 63.4 % (42-78); TOTAL CELLS COUNTED % (AUTO) 100 %; WHITE BLOOD COUNT 6.9 10^3/uL (4.0-10.5)
[2019-09-20 16:43] LABS: APPEARANCE,URINE SLIGHTLY-CLOUDY; BILIRUBIN,URINE NEGATIVE (NEGATIVE); COLOR,URINE YELLOW; GLUCOSE, URINE NEGATIVE (NEGATIVE); KETONES,URINE NEGATIVE (NEGATIVE); LEUKOCYTE ESTERASE,URINE TRACE (NEGATIVE); NITRITE,URINE NEGATIVE (NEGATIVE); PROTEIN,URINE NEGATIVE (NEGATIVE); UROBILINOGEN,URINE NEGATIVE mg/dL (<2.0)
[2019-09-20 16:57] LABS: ALBUMIN 4.8 g/dL (3.5-5.0); ALKALINE PHOSPHATASE 37 U/L (38-126); ANION GAP 10 (5-19); ASPARTATE AMINO TRANSFERASE 23 U/L (14-36); BILIRUBIN,TOTAL 0.5 mg/dL (0.2-1.3); BLOOD UREA NITROGEN 14 mg/dL (7-20); CALCIUM 9.6 mg/dL (8.4-10.2); CARBON DIOXIDE 25 mmol/L (22-30); CHLORIDE 102 mmol/L (98-107); GLUCOSE 87 mg/dL (75-110); POTASSIUM 4.2 mmol/L (3.6-5.0); TOTAL PROTEIN 7.8 g/dL (6.3-8.2)
--- NOTE | 2019-09-20 17:30 | ER Document Report ---
ED General - General Chief Complaint: Flank Pain Stated Complaint: RIGHT FLANK PAIN Time Seen by Provider: 09/20/19 15:57 Primary Care Provider: TAMAR MONTANO NP [Primary Care Provider] - Follow up as needed Mode of Arrival: Ambulatory TRAVEL OUTSIDE OF THE [place] IN LAST 30 DAYS: No - HPI Notes: Chief complaint: Right flank pain HPI: 23-year-old female 1 AB 1 with last menstrual period about 1 month ago consisting of only spotting comes in today concerned about possibility of ectopic noting right flank discomfort occasionally radiating into the pelvis. She denies any UTI symptoms. Denies any breast soreness. She has been nauseated without vomiting. No fever. She was seen with somewhat similar symptoms in April 2019 and had a noncontrast CT abdomen pelvis that time for evaluation of possible kidney stone but this was a negative study. She is never had a renal stone that we are aware of. She also reports a number of other vague seemingly unrelated symptoms including difficulty concentrating at times and pins and needle sensation of lower extremities. Of note the patient carries a diagnosis of complex regional pain syndrome involving the left lower extremity and she is also been diagnosed with Nora Danlos syndrome in the past. She is currently on oral contraceptives and has been on these now for about 3 years although she had previously taken them several years ago with a period of interruption. She is taken several home test within the last week all which have been negative but she is concerned that she could have an ectopic that has been missed by the home diagnostic study. Also notes that she has longstanding history of migraine headaches and says she is getting migraines a little more frequently than usual so she has been on oral contraceptives although she is not experiencing headache today. - Related Data Allergies/Adverse Reactions: latex Allergy (Unknown, Verified 09/20/19 15:56) adhesive Allergy (Verified 09/20/19 15:56) nickel Allergy (Verified 09/20/19 15:56) ANTS Allergy (Uncoded 09/20/19 15:56) electrode gel Allergy (Uncoded 09/20/19 15:56) FISH Allergy (Uncoded 09/20/19 15:56) thimerosal Allergy (Uncoded 09/20/19 15:56) Past Medical History - General Information source: Patient, [facility] Records - Social History Smoking Status: Never Smoker Chew tobacco use (# tins/day): No Frequency of alcohol use: None Drug Abuse: None Family History: Reviewed & Not Pertinent, Other Patient has homicidal ideation: No - Past Medical History Cardiac Medical History: Reports: None Denies: Hx Coronary Artery Disease, Hx Heart Attack, Hx Hypertension Pulmonary Medical History: Reports: None Denies: Hx Asthma, Hx Bronchitis, Hx COPD, Hx Pneumonia Neurological Medical History: Reports: Hx Migraine. Denies: Hx Cerebrovascular Accident, Hx Seizures Endocrine Medical History: Reports: None Renal/ Medical History: Reports: Hx Ovarian Cysts. Denies: Hx Kidney Stones, Hx Peritoneal Dialysis Malignancy Medical History: Reports: None GI Medical History: Reports: None Musculoskeletal Medical History: Reports Hx Arthritis, Reports Hx Musculoskeletal Deformity, Reports Hx Musculoskeletal Trauma, Reports Other - Nora Danlos syndrome Psychiatric Medical History: Reports: Hx Anxiety, Hx Attention Deficit Hyperactivity Disorder - Anxiety, Hx Depression Traumatic Medical History: Reports: Hx Fractures Past Surgical History: Reports: Hx Orthopedic Surgery - left ankle - Immunizations Immunizations up to date: Yes Hx Diphtheria, Pertussis, Tetanus Vaccination: Yes Review of Systems - Review of Systems Notes: Constitutional: Negative for fever. HENT: Negative for sore throat. Eyes: Negative for visual changes. Cardiovascular: Negative for chest pain. Respiratory: Negative for shortness of breath. Gastrointestinal: As per HPI. Genitourinary: As per HPI. Musculoskeletal: As per HPI. Skin: Negative for rash. Neurological: No focal weakness or numbness. 10 point ROS negative except as marked above and in HPI. Physical Exam - Vital signs Vitals: Temp Pulse Resp BP Pulse Ox 98.0 F 95 20 128/80 H 100 09/20/19 15:48 09/20/19 15:48 09/20/19 15:48 09/20/19 15:48 09/20/19 15:48 - Notes Notes: GENERAL: Well-developed well-nourished appearing in no acute distress. SKIN: Good turgor no rashes. HEAD: Normocephalic atraumatic. EYES: PERRLA. EOMI. Conjunctivae and sclerae clear. EARS: CANALS AND TMS CLEAR. NOSE: CLEAR. MOUTH: Moist mucosa. Good dentition. No stridor or edema. No drooling. NECK: Supple. No masses or thyromegaly. No adenopathy. Carotids 2+ without bruits. No JVD. BACK: Symmetrical without tenderness. CHEST: Respirations unlabored. Breath sounds clear and symmetrical. HEART: Regular rhythm. No murmur gallop or rub. ABDOMEN: Soft nontender without masses, organomegaly or rebound. Bowel sounds normally active. No bruits. GENITALIA: Deferred. EXTREMITIES: No edema. No calf tenderness. Cap refill less than 1.5 seconds. Dorsalis pedis and posterior tibial pulses 3+ and symmetrical. NEUROLOGICAL: GCS 15. Alert and oriented x3. Normal gait. Fluent speech. [employer] nial nerves II through XII intact. Sensorimotor and cerebellar normal. Normal tone. PSYCHIATRIC: Appropriate affect. Course - Re-evaluation Re-evalutation: 09/20/19 17:31 Serum test is negative. Urinalysis unremarkable. CBC and comprehensive metabolic profile are normal. Patient is reassured that she is not and does not have ectopic . I think this young lady has an element of chronic depression with somatization in addition to some chronic pain issues related to migraine and Nora Danlos syndrome. Additionally she may be having some adverse effects related to exogenous administration of hormone for control. I suggested she remain on her usual medications for the time being and asked her primary care provider to consider referral to [facility] to reevaluate formulation of her control at this time. Patient expresses full understanding of findings and recommendations today. - Vital Signs Vital signs: Temp Pulse Resp BP Pulse Ox 98.0 F 95 20 128/80 H 100 09/20/19 15:56 09/20/19 15:48 09/20/19 15:48 09/20/19 15:48 09/20/19 15:48 - Laboratory Result Diagrams: 09/20/19 16:20 09/20/19 16:20 Laboratory results interpreted by me: 09/20/19 09/20/19 16:20 16:20 Sodium 136.7 L Alkaline Phosphatase 37 L Urine Blood SMALL H Ur Leukocyte Esterase TRACE H Discharge - Discharge Clinical Impression: Right flank pain, Nora Danlos syndrome Complex regional pain syndrome Qualifiers: Complex regional pain syndrome type: type II (causalgia) Complex regional pain syndrome affected site: lower extremity Laterality: left Qualified Code(s): G57.72 - Causalgia of left lower limb Condition: Stable Disposition: HOME, SELF-CARE Additional Instructions: Continue current medications. Return here as needed for new or worsening symptoms: Pain that is worsening or unimproved Uncontrolled vomiting High fever or shaking chills Overall worsening Referrals: TAMAR MONTANO MANAGER [employer] [Primary Care Provider] - Follow up as needed
[2019-09-20 17:58] VITALS: BP 129/75
== END 2019-09-20 17:53 | disposition home or self-care (01) ==
LOC: ER 15:44
DX: Q79.60 Ehlers-Danlos syndrome, unspecified (principal); R10.9 Unspecified abdominal pain; R10.2 Pelvic and perineal pain; Z88.8 Allergy status to other drugs, medicaments and biological substances
CPT/HCPCS: 36415; 80053; 81001; 84703; 85025; 99284

== ENCOUNTER → 2019-10-09 | Outpatient (CLI) | payer MEDICAID ==
--- NOTE | 2019-10-09 12:45 | RADIOLOGY REPORT (SQ) ---
EXAM DESCRIPTION: NM 3 PHASE BONE SCAN IMAGES COMPLETED DATE/TIME: 10/09/2019 11:51 am REASON FOR STUDY: COMPLEX REGIONAL PAIN SYNDROME OF LEFT LOWER LIMB (G90.529) G90.529 COMPLEX REGIO NAL PAIN SYNDROME I OF UNSPECIFIED LOWE COMPARISON: No available imaging studies for comparison. RADIONUCLIDE AND DOSE: 20 millicuries Tc99m HDP. The route of agent administration: Intravenous. ADDITIONAL DRUGS AND DOSES: None. TECHNIQUE: Following injection of the radiopharmaceutical, serial blood flow images acquired. Equil ibrium blood pool images then acquired. Routine delayed images at 3 hours acquired of the areas of c linical concern with additional focused images as needed. AREA OF INTEREST: Left foot LIMITATIONS: None. FINDINGS: VASCULAR FLOW IMAGES: There is no significant hyperemia. BLOOD POOL IMAGES: There is no increased blood pool activity. BONES: Delayed images show focal increased uptake in the region of the ankle and the dome of the talu s. KIDNEYS: Kidneys not imaged. OTHER: No other significant finding. IMPRESSION: There is no significant hyperemia or increased blood pool activity. Delayed images show increased activity in the region of the left ankle and the dome of the talus. COMMENT: Quality measure 147: Current bone scan is compared with any available plain radiographs, p rior bone scans, and CT/MRI. TECHNICAL DOCUMENTATION: JOB ID: [id number] 2010 [employer]- All Rights Reserved Reading location - IP/workstation name: [email or web address]
== END ==
LOC: RAD 07:46
PROVIDERS: ATTEND Anesthesiology Pain Medicine
DX: G90.522 Complex regional pain syndrome I of left lower limb (principal)
CPT/HCPCS: 78315; A9561; Q9969

== ENCOUNTER → 2019-11-10 | Outpatient (CLI) | payer MEDICAID ==
[2019-11-10 11:31] VITALS: BP 125/65
--- NOTE | 2019-11-10 11:31 | ER RDC ASSESSMENT REPORT ---
Intake - In the Last 14 days Have you traveled outside [place]?: No Have you been in close contact with someone CONFIRMED: No Worked in Healthcare?: No - Symptoms Subjective Fever([place] feverish): No Chills: No Muscule Aches: Yes Runny Nose: No Sore Throat: Yes Cough (New or worsening chronic cough): Yes Shortness of breath: Yes Nausea or Vomiting: No Headache: No Abdominal Pain: No Diarrhea(3 or more loose stools in last 24 hours): No - Do you have any of the following Chronic lung disease: Asthma or emphysema or COPD: No Cystic Fibrosis: No Diabetes: No High Blood Pressure: No Cardiovascular Disease: Yes Cardiovascular Disease Comment: pots Chronic Kidney Disease: No Chronic Liver Disease: No Chronic blood disorder like Sickle Cell Disease: No Weak immune system due to disease or medication: No Neurologic condition that limits movement: No Neurological Condition Comment: EDS Developmental delay - Moderate to Severe: No Recent (within past 2 weeks) or current : No - Objective Temperature: 98.1 F Pulse Rate: 100 Respiratory Rate: 20 Blood Pressure: 125/65 O2 Sat by Pulse Oximetry: 99 Objective: Given above, testing performed: If Testing Performed: Test Specimen Type Sent to General - General Information source: Patient Notes: Patient presents to the RDC for screening for the coronavirus. Patient states that she has had symptoms for the past 5 days including body aches, sore throat, cough shortness of breath and some chest pressure. 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 - Related Data Allergies/Adverse Reactions: latex Allergy (Unknown, Verified 09/20/19 15:56) adhesive Allergy (Verified 09/20/19 15:56) nickel Allergy (Verified 09/20/19 15:56) ANTS Allergy (Uncoded 09/20/19 15:56) electrode gel Allergy (Uncoded 09/20/19 15:56) FISH Allergy (Uncoded 09/20/19 15:56) thimerosal Allergy (Uncoded 09/20/19 15:56) Past Medical History - General Information source: Patient - Social History Smoking Status: Never Smoker Family History: Reviewed & Not Pertinent, Other - Medical History Medical History: Other - Nose, dysautonomia - Past Medical History 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Pots Pulmonary Medical History: Denies: Hx Asthma, Hx Bronchitis, Hx COPD, Hx Pneumonia Neurological Medical History: Reports: Hx Migraine. Denies: Hx Cerebrovascular Accident, Hx Seizures Renal/ Medical History: Reports: Hx Ovarian Cysts. Denies: Hx Kidney Stones, Hx Peritoneal Dialysis Musculoskeletal Medical History: Reports Hx Arthritis, Reports Hx Musculoske letal Deformity, Reports Hx Musculoskeletal Trauma Psychiatric Medical History: Reports: Hx Anxiety, Hx Attention Deficit Hyperactivity Disorder - Anxiety, Hx Depression Traumatic Medical History: Reports: Hx Fractures Past Surgical History: Reports: Hx Orthopedic Surgery - left ankle Physical Exam - Notes Notes: Full physical exam could not be performed due to covid 19 isolation protocols. Constitutional: Nontoxic appearance, no acute distress Eyes: Nonicteric, extraocular movements intact, sclera clear ENT: Posterior pharynx mildly erythematous, no exudates, no tonsillar hypertrophy Cardiovascular: Heart rate and rhythm regular, no JVD Respiratory: Sounds clear bilaterally, nonlabored breathing, no use of accessory muscles, no tachypnea Gastrointestinal: Abdomen not distended Muculoskeletal: Moves all extremities well Skin: Normal color Neuro: Awake alert oriented, normal speech Psych: Normal mood and affect Diagnostic Results Laboratory Results: The patient was evaluated during the global Covid 19 pandemic, and that diagnosis was suspected/considered upon their initial presentation. Their evaluation, treatment and testing was consistent with current guidelines for patients who present with complaints or symptoms that may be related to Covid 19. Patient presents with upper respiratory symptoms worrisome for possible Covid 19. Patient does not have emergency worrying symptoms such as difficulty breathing, shortness of breath, chest pain, pressure, confusion or cyanosis. Patient appears suitable for discharge as they are not of an advanced age, do not have any chronic medical conditions such as diabetes, CAD, immune deficiency, chronic lung disease or chronic kidney disease. Patient's vital signs are stable and patient is nontoxic in appearance. Good return precautions have been discussed with patient, patient verbalized understanding and is agreeable with discharge plan of care at this time. Patient Education/Counseling Counseling/Education: Patient was provided with discharge information including: As a person under investigation for Covid 19, the [facility] and Human Services, division of public health advises you to adhere to the following guidance until your test results are reported to you. If your test result is positive, you will receive additional information from your provider and your local health department at that time. Remain at home until you are cleared by the health provider or public health authorities. Keep a log of visitors to your home, notify any visitors to your home of your isolation status. If you plan to move to a new address or leave the county, notify the local health department in your County. Call your doctor or seek care if you have an urgent medical need. Before seeking medical care, call ahead to get instructions from the provider before arriving at the medical office clinic or hospital. Notify them that you are being tested for the virus that causes Covid 19 so that arrangements can be made, as necessary, to prevent transmission to others in the healthcare setting. Next, notify the local health department in your county. If a medical emergency arises and you need to call 911, inform the first responders that you are being tested for the virus that causes Covid 19. Next, notify the local health department in your county. RDC Discharge - Discharge Clinical Impression: Encounter for screening laboratory testing for COVID-19 virus Condition: Stable Disposition: Home; Selfcare
[2019-11-10 12:59] LABS: A TYPE INFLUENZA AG NEGATIVE (NEGATIVE); B INFLUENZA AG NEGATIVE (NEGATIVE)
== END ==
LOC: RDC 10:49
PROVIDERS: ATTEND Nurse Practitioner Family
DX: Z20.828 Contact with and (suspected) exposure to other viral communicable diseases (principal); R05 Cough; R06.02 Shortness of breath; M79.10 Myalgia, unspecified site; J02.9 Acute pharyngitis, unspecified; R07.89 Other chest pain; Q79.60 Ehlers-Danlos syndrome, unspecified; I49.8 Other specified cardiac arrhythmias; Z91.040 Latex allergy status; Z91.013 Allergy to seafood; Z91.048 Other nonmedicinal substance allergy status; G90.1 Familial dysautonomia [Riley-Day]
CPT/HCPCS: 87070; 87880; 87635; 87804; C9803; 99201; 99211

== ENCOUNTER 2019-11-24 18:28 | Emergency (ER) | payer MEDICAID ==
[2019-11-24] MEDS ORDERED: ONDANSETRON HCL INJ/PF 4 MG/2 ML SDV IV ONE (20:45)
[2019-11-24] MEDS ORDERED: NORMAL SALINE 1000 ML 1,000 ML IV ONE (20:45)
--- NOTE | 2019-11-24 20:47 | ER Document Report ---
ED General - General Chief Complaint: Nausea/Vomiting Stated Complaint: VOMITING,DIARRHEA Time Seen by Provider: 11/24/19 20:36 Primary Care Provider: TAMAR MONTANO NP [Primary Care Provider] - Follow up as needed Notes: Patient is a 23-year-old female that comes emergency department for chief complaint of fever of 102 F, shaking chills, an episode of vomiting, and several episodes of diarrhea. Symptoms started today. Patient states she felt lightheaded but did not pass out. She denies cough, difficulty breathing, sore throat, chest pain, or obvious recent contacts. She states that she thought she had a exposure previously but they were tested and were negative, she was also tested and was negative. No obvious sick contacts since. Past medical history of POTS, medicated with nifedipine, amitriptyline, no other reported medical history. She denies smoking, recreational drugs, alcohol. TRAVEL OUTSIDE OF THE [place] IN LAST 30 DAYS: No - Related Data Allergies/Adverse Reactions: latex Allergy (Unknown, Verified 09/20/19 15:56) adhesive Allergy (Verified 09/20/19 15:56) nickel Allergy (Verified 09/20/19 15:56) ANTS Allergy (Uncoded 09/20/19 15:56) electrode gel Allergy (Uncoded 09/20/19 15:56) FISH Allergy (Uncoded 09/20/19 15:56) thimerosal Allergy (Uncoded 09/20/19 15:56) Home Medications: pt states meds are on file Past Medical History - General Information source: Patient - Social History Smoking Status: Never Smoker Frequency of alcohol use: None Drug Abuse: None Lives with: Family Family History: Reviewed & Not Pertinent, Other Patient has homicidal ideation: No - Past Medical History Cardiac Medical History: Denies: Hx Coronary Artery Disease, Hx Heart Attack, Hx Hypertension Pulmonary Medical History: Denies: Hx Asthma, Hx Bronchitis, Hx COPD, Hx Pneumonia Neurological Medical History: Reports: Hx Migraine. Denies: Hx Cerebrovascular Accident, Hx Seizures Renal/ Medical History: Reports: Hx Ovarian Cysts. Denies: Hx Kidney Stones, Hx Peritoneal Dialysis Musculoskeletal Medical History: Reports Hx Arthritis, Reports Hx Musculoskeletal Deformity, Reports Hx Musculoskeletal Trauma Psychiatric Medical History: Reports: Hx Anxiety, Hx Attention Deficit Hyperactivity Disorder - Anxiety, Hx Depression Traumatic Medical History: Reports: Hx Fractures Past Surgical History: Reports: Hx Orthopedic Surgery - left ankle - Immunizations Immunizations up to date: Yes Hx Diphtheria, Pertussis, Tetanus Vaccination: Yes Review of Systems - Review of Systems Constitutional: See HPI EENT: No symptoms reported Cardiovascular: No symptoms reported Respiratory: No symptoms reported Gastrointestinal: See HPI Genitourinary: No symptoms reported Female Genitourinary: No symptoms reported Musculoskeletal: No symptoms reported Skin: No symptoms reported Hematologic/Lymphatic: No symptoms reported Neurological/Psychological: No symptoms reported Physical Exam - Vital signs Vitals: Temp Pulse Resp BP Pulse Ox 99.5 F 106 H 16 116/75 100 11/24/19 20:06 11/24/19 20:06 11/24/19 20:06 11/24/19 20:06 11/24/19 20:06 - Notes Notes: GENERAL: Alert, interacts well. No acute distress. HEAD: Normocephalic, atraumatic. EYES: Pupils equal, round, and reactive to light. Extraocular movements intact. ENT: Oral mucosa dry, tongue midline. Oropharynx unremarkable. Airway patent. NECK: Full range of motion. Supple. Trachea midline. No lymphadenopathy. LUNGS: Clear to auscultation bilaterally, no wheezes, rales, or rhonchi. No respiratory distress. Non-tender chest wall. HEART: Regular rate and rhythm. No murmur ABDOMEN: Soft, non-tender. Non-distended. EXTREMITIES: Moves all 4 extremities spontaneously. No edema, normal radial and dorsalis pedis pulses bilaterally. No cyanosis. BACK: no cervical, thoracic, lumbar midline tenderness. No saddle anesthesia, normal distal neurovascular exam. Moves all extremities in full range of motion. NEUROLOGICAL: Alert and oriented x3. Normal speech. Cranial nerves II through XII grossly intact. Strength 5/5 in all extremities. PSYCH: Normal affect, normal mood. SKIN: Warm, dry, normal turgor. No rashes or lesions noted. Course - Re-evaluation Re-evalutation: Patient is very well-appearing, alert, conversational. Vital signs unremarkable here, patient denies any complaints after treatment with IV fluids. Patient is tolerating p.o. without difficulty. Requested a stool sample to test for diar sb but patient no longer was having any diarrhea and could not provide the sample. CBC nonspecific, chemistry and urinalysis nonspecific. Based on her work-up and evaluation I am oh strongly suspect this is viral, I do have a low suspicion of acute abdomen or any severe illness, patient will be treated symptomatically, tested for coronavirus after we discussed this, and I discussed return precautions in detail. Patient states understanding and agreement, stable, well-appearing, tolerating p.o. at time of discharge. - Vital Signs Vital signs: Temp Pulse Resp BP Pulse Ox 99.0 F 86 16 127/80 H 100 11/24/19 23:08 11/24/19 23:08 11/24/19 20:06 11/24/19 23:08 11/24/19 23:08 - Laboratory Result Diagrams: 11/24/19 22:00 11/24/19 22:00 Laboratory results interpreted by me: 11/24/19 11/24/19 11/24/19 21:22 22:00 22:00 WBC 11.9 H [place] % (Auto) 2.7 L Absolute Neuts (auto) 9.2 H Total Protein 8.8 H Albumin 5.4 H Ur Leukocyte Esterase SMALL H Discharge - Discharge Clinical Impression: Nausea vomiting and diarrhea Fever Qualifiers: Fever type: unspecified Qualified Code(s): R50.9 - Fever, unspecified Condition: Stable Disposition: HOME, SELF-CARE Additional Instructions: Your work-up service and dehydration which was treated, no other concerning findings are noted on your evaluation. I suspect this is viral and this should simply go away with time. Take the nausea medication, drink plenty of fluids, start with bland food and slowly progress. Follow-up with primary care. You will be contacted with results for the COVID-19 testing. Return for any concerning symptoms including severe abdominal pain, uncontrolled vomiting, or any other concerning or worsening symptoms. As a person under investigation for COVID-19, the [place] Department of Health and Human Services (division on public health) advises you to adhere to the following guidance until your test results are reported to you. If your test result is positive, you will receive additional information from your provider and your local health department at that time. Remain at home until you are cleared by the health provider or public health authorities. Keep a log of visitors to your home, notify any visitors to your home of your isolation status. If you plan to move to a new address or leave the county, notify the local health department in your County. Call your Doctor or seek care if you have an urgent medical need. Before seeking medical care, call him to get instructions from the provider before arriving at the medical office, clinic, or hospital. Notify them that you are being tested for the virus (COVID-19) so that arrangements can be made, as necessary, to prevent transmission to others in the healthcare setting. Next, notify the local health department in your county. If a medical emergency arises and you need to call 911, inform the first responders that you are being tested for the virus that causes COVID-19. Next, notify the local health department in your county. Prescriptions: Ondansetron [Zofran Odt 4 mg Tablet] 1 - 2 tab PO Q4H PRN #15 tab.rapdis PRN Reason: For Nausea/Vomiting Forms: Return to Work Referrals: TAMAR MONTANO, MEDICAL SURGICAL TECH [Primary Care Provider] - Follow up as needed
[2019-11-24 21:51] LABS: APPEARANCE,URINE SLIGHTLY-CLOUDY; BILIRUBIN,URINE NEGATIVE (NEGATIVE); COLOR,URINE YELLOW; GLUCOSE, URINE NEGATIVE (NEGATIVE); KETONES,URINE NEGATIVE (NEGATIVE); LEUKOCYTE ESTERASE,URINE SMALL (NEGATIVE); NITRITE,URINE NEGATIVE (NEGATIVE); PROTEIN,URINE NEGATIVE (NEGATIVE); UROBILINOGEN,URINE NEGATIVE mg/dL (<2.0)
[2019-11-24 22:26] LABS: ABSOLUTE LYMPHOCYTES (AUTO) 2.3 10^3/uL (0.5-4.7); ABSOLUTE MONOCYTES (AUTO) 0.3 10^3/uL (0.1-1.4); ABSOLUTE NEUT (AUTO) 9.2 10^3/uL (1.7-8.2); BASOPHILS % (AUTO) 0.4 % (0-2); EOSINOPHILS % (AUTO) 0.1 % (0-6); HEMATOCRIT 42.3 % (36.0-47.0); HEMOGLOBIN 14.5 g/dL (12.0-15.5); LYMPHOCYTES % (AUTO) 19.4 % (13-45); MEAN CORPUSCULAR HEMOGLOBIN 31.3 pg (27.0-33.4); MEAN CORPUSCULAR HGB CONC 34.3 g/dL (32.0-36.0); MEAN CORPUSCULAR VOLUME 91 fl (80-97); MONOCYTES % (AUTO) 2.7 % (3-13); PLATELET COUNT 442 10^3/uL (150-450); RED BLOOD COUNT 4.64 10^6/uL (3.72-5.28); RED CELL DISTRIBUTION WIDTH 12.3 % (11.5-14.0); SEGMENTED NEUTROPHILS % (AUTO) 77.4 % (42-78); TOTAL CELLS COUNTED % (AUTO) 100 %; WHITE BLOOD COUNT 11.9 10^3/uL (4.0-10.5)
[2019-11-24 22:33] LABS: ALBUMIN 5.4 g/dL (3.5-5.0); ALKALINE PHOSPHATASE 46 U/L (38-126); ANION GAP 13 (5-19); ASPARTATE AMINO TRANSFERASE 23 U/L (14-36); BILIRUBIN,TOTAL 0.3 mg/dL (0.2-1.3); BLOOD UREA NITROGEN 11 mg/dL (7-20); CALCIUM 10.2 mg/dL (8.4-10.2); CARBON DIOXIDE 23 mmol/L (22-30); CHLORIDE 102 mmol/L (98-107); GLUCOSE 93 mg/dL (75-110); POTASSIUM 4.3 mmol/L (3.6-5.0); TOTAL PROTEIN 8.8 g/dL (6.3-8.2)
[2019-11-24] MEDS ORDERED: ONDANSETRON ODT 4 MG TAB (6 TAB/ER DISP) PO PRN (22:57)
[2019-11-24 23:23] VITALS: BP 127/80
== END 2019-11-24 23:23 | disposition home or self-care (01) ==
LOC: ER 18:28
DX: R11.2 Nausea with vomiting, unspecified (principal); R50.9 Fever, unspecified; R19.7 Diarrhea, unspecified; R42 Dizziness and giddiness; Z88.8 Allergy status to other drugs, medicaments and biological substances; Z20.828 Contact with and (suspected) exposure to other viral communicable diseases
CPT/HCPCS: 99284; 96361; 96374; 36415; 87086; 83690; 85025; 87635; 81025; 80053; 81001; J2405; J7030; C9803

== ENCOUNTER → 2019-12-15 | Outpatient (CLI) | payer MEDICAID ==
[2019-12-15 13:32] LABS: ALBUMIN 4.7 g/dL (3.5-5.0); ALKALINE PHOSPHATASE 36 U/L (38-126); ANION GAP 13 (5-19); ASPARTATE AMINO TRANSFERASE 22 U/L (14-36); BILIRUBIN,TOTAL 0.3 mg/dL (0.2-1.3); BLOOD UREA NITROGEN 13 mg/dL (7-20); CALCIUM 9.4 mg/dL (8.4-10.2); CARBON DIOXIDE 22 mmol/L (22-30); CHLORIDE 104 mmol/L (98-107); GLUCOSE 90 mg/dL (75-110); POTASSIUM 4.1 mmol/L (3.6-5.0); TOTAL PROTEIN 7.7 g/dL (6.3-8.2)
== END ==
LOC: OD 11:02
PROVIDERS: ATTEND Physician Assistant
DX: I49.3 Ventricular premature depolarization (principal); R42 Dizziness and giddiness; E83.42 Hypomagnesemia; Z79.899 Other long term (current) drug therapy
CPT/HCPCS: 36415; 80048; 80076; 83735; 84443

== ENCOUNTER 2020-01-09 15:59 | Emergency (ER) | payer MEDICAID ==
--- NOTE | 2020-01-09 16:16 | ER Document Report ---
ED Medical Screen (RME) - General Chief Complaint: Chest Pain Stated Complaint: CHEST PAIN,RIGHT ARM PAIN Time Seen by Provider: 01/09/20 16:09 Primary Care Provider: WING DERAS PA-C [Primary Care Provider] - Follow up as needed Mode of Arrival: Ambulatory Information source: Patient Notes: 24-year-old female patient presenting to the emergency department chief complaint of chest pain. Patient reports she started having what felt like heart palpitations followed by right-sided chest pain that radiated up into her neck, jaw and right arm. She reports right arm numbness and tingling. She states she has an extensive cardiac history. She denies any other associated symptoms. Heart sounds S1-S2 present, normal rate, normal rhythm. No acute distress noted. I have greeted and performed a rapid initial assessment of this patient. A comprehensive ED assessment and evaluation of the patient, analysis of test results and completion of the medical decision making process will be conducted by additional ED providers. I have specifically instructed the patient or family members with the patient to immediately return to any nursing staff should anything change in the patient's condition or with their chief complaint. TRAVEL OUTSIDE OF THE [place] IN LAST 30 DAYS: No - Related Data Allergies/Adverse Reactions: latex Allergy (Unknown, Verified 09/20/19 15:56) adhesive Allergy (Verified 09/20/19 15:56) nickel Allergy (Verified 09/20/19 15:56) ANTS Allergy (Uncoded 09/20/19 15:56) electrode gel Allergy (Uncoded 09/20/19 15:56) FISH Allergy (Uncoded 09/20/19 15:56) thimerosal Allergy (Uncoded 09/20/19 15:56) Past Medical History - Past Medical History Cardiac Medical History: Denies: Hx Coronary Artery Disease, Hx Heart Attack, Hx Hypertension Pulmonary Medical History: Denies: Hx Asthma, Hx Bronchitis, Hx COPD, Hx Pneumonia Neurological Medical History: Reports: Hx Migraine. Denies: Hx Cerebrovascular Accident, Hx Seizures Renal/ Medical History: Reports: Hx Ovarian Cysts. Denies: Hx Kidney Stones, Hx Peritoneal Dialysis Musculoskeltal Medical History: Reports Hx Arthritis, Reports Hx Musculoskeletal Deformity, Reports Hx Musculoskeletal Trauma Psychiatric Medical History: Reports: Hx Anxiety, Hx Attention Deficit Hyperactivity Disorder - Anxiety, Hx Depression Traumatic Medical History: Reports: Hx Fractures Past Surgical History: Reports: Hx Orthopedic Surgery - left ankle - Immunizations Immunizations up to date: Yes Hx Diphtheria, Pertussis, Tetanus Vaccination: Yes Doctor's Discharge - Discharge Referrals: WING DERAS PA-C [Primary Care Provider] - Follow up as needed
[2020-01-09 16:33] LABS: ABSOLUTE BASOPHILS # (AUTO) 0.1 10^3/uL (0.0-0.2); ABSOLUTE EOSINOPHILS # (AUTO) 0.1 10^3/uL (0.0-0.6); ABSOLUTE LYMPHOCYTES (AUTO) 2.2 10^3/uL (0.5-4.7); ABSOLUTE MONOCYTES (AUTO) 0.4 10^3/uL (0.1-1.4); ABSOLUTE NEUT (AUTO) 4.1 10^3/uL (1.7-8.2); EOSINOPHILS % (AUTO) 2.1 % (0-6); HEMATOCRIT 38.6 % (36.0-47.0); HEMOGLOBIN 13.5 g/dL (12.0-15.5); LYMPHOCYTES % (AUTO) 32.2 % (13-45); MEAN CORPUSCULAR HEMOGLOBIN 31.9 pg (27.0-33.4); MEAN CORPUSCULAR HGB CONC 34.9 g/dL (32.0-36.0); MEAN CORPUSCULAR VOLUME 91 fl (80-97); MONOCYTES % (AUTO) 5.3 % (3-13); PLATELET COUNT 371 10^3/uL (150-450); RED BLOOD COUNT 4.23 10^6/uL (3.72-5.28); RED CELL DISTRIBUTION WIDTH 12.1 % (11.5-14.0); SEGMENTED NEUTROPHILS % (AUTO) 59.4 % (42-78); TOTAL CELLS COUNTED % (AUTO) 100 %
[2020-01-09] MEDS ORDERED: NORMAL SALINE 1000 ML 1,000 ML IV ONE (16:47)
--- NOTE | 2020-01-09 16:52 | RADIOLOGY REPORT (SQ) ---
EXAM DESCRIPTION: CHEST SINGLE VIEW IMAGES COMPLETED DATE/TIME: 01/09/2020 3:34 pm REASON FOR STUDY: chest pain COMPARISON: 07/19/2019 EXAM PARAMETERS: NUMBER OF VIEWS: One view. TECHNIQUE: Single frontal radiographic view of the chest acquired. RADIATION DOSE: NA LIMITATIONS: None. FINDINGS: LUNGS AND PLEURA: No opacities, masses or pneumothorax. No pleural effusion. MEDIASTINUM AND HILAR STRUCTURES: No masses. Contour normal. HEART AND VASCULAR STRUCTURES: Heart normal in size. Normal vasculature. BONES: No acute findings. HARDWARE: None in the chest. OTHER: No other significant finding. IMPRESSION: NO ACUTE RADIOGRAPHIC FINDING IN THE CHEST. TECHNICAL DOCUMENTATION: JOB ID: [id number] 2010 [employer]- All Rights Reserved Reading location - IP/workstation name: [email or web address]
[2020-01-09 16:59] LABS: ALBUMIN 4.4 g/dL (3.5-5.0); ALKALINE PHOSPHATASE 40 U/L (38-126); ANION GAP 8 (5-19); ASPARTATE AMINO TRANSFERASE 20 U/L (14-36); BILIRUBIN,DIRECT 0.2 mg/dL (0.0-0.4); BILIRUBIN,TOTAL 0.4 mg/dL (0.2-1.3); BLOOD UREA NITROGEN 18 mg/dL (7-20); CALCIUM 9.5 mg/dL (8.4-10.2); CARBON DIOXIDE 24 mmol/L (22-30); CHLORIDE 108 mmol/L (98-107); GLUCOSE 85 mg/dL (75-110); POTASSIUM 4.3 mmol/L (3.6-5.0)
[2020-01-09 18:07] LABS: APPEARANCE,URINE CLEAR; BILIRUBIN,URINE NEGATIVE (NEGATIVE); COLOR,URINE STRAW; GLUCOSE, URINE NEGATIVE (NEGATIVE); KETONES,URINE NEGATIVE (NEGATIVE); PROTEIN,URINE NEGATIVE (NEGATIVE); URINE SPECIFIC GRAVITY 1.019; UROBILINOGEN,URINE NEGATIVE mg/dL (<2.0)
--- NOTE | 2020-01-09 20:32 | ER Document Report ---
ED General - General Chief Complaint: Chest Pain Stated Complaint: CHEST PAIN,RIGHT ARM PAIN Time Seen by Provider: 01/09/20 16:09 Primary Care Provider: WING DERAS PA-C [Primary Care Provider] - Follow up as needed Mode of Arrival: Ambulatory Notes: This 24-year-old female presents to the ER with a complaint of dizziness lightheadedness with associated right-sided chest discomfort and pain involving the right shoulder region as well as some tingling and numbness in the right arm. 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 She also notes a history of PVCs and rapid heartbeat, could not tolerate metoprolol and thus put on diltiazem. She had been doing well until the symptoms began today. TRAVEL OUTSIDE OF THE [place] IN LAST 30 DAYS: No - Related Data Allergies/Adverse Reactions: latex Allergy (Unknown, Verified 09/20/19 15:56) adhesive Allergy (Verified 09/20/19 15:56) nickel Allergy (Verified 09/20/19 15:56) ANTS Allergy (Uncoded 09/20/19 15:56) electrode gel Allergy (Uncoded 09/20/19 15:56) FISH Allergy (Uncoded 09/20/19 15:56) thimerosal Allergy (Uncoded 09/20/19 15:56) Past Medical History - General Information source: Patient - Social History Smoking Status: Never Smoker Chew tobacco use (# tins/day): No Frequency of alcohol use: Occasional Family History: Reviewed & Not Pertinent, Other - Past Medical History Cardiac Medical History: Denies: Hx Coronary Artery Disease, Hx Heart Attack, Hx Hypertension Pulmonary Medical History: Denies: Hx Asthma, Hx Bronchitis, Hx COPD, Hx Pneumonia Neurological Medical History: Reports: Hx Migraine. Denies: Hx Cerebrovascular Accident, Hx Seizures Renal/ Medical History: Reports: Hx Ovarian Cysts. Denies: Hx Kidney Stones, Hx Peritoneal Dialysis Musculoskeletal Medical History: Reports Hx Arthritis, Reports Hx Musculoskeletal Deformity, Reports Hx Musculoskeletal Trauma Psychiatric Medical History: Reports: Hx Anxiety, Hx Attention Deficit Hyperactivity Disorder - Anxiety, Hx Depression Traumatic Medical History: Reports: Hx Fractures Past Surgical History: Reports: Hx Orthopedic Surgery - left ankle - Immunizations Immunizations up to date: Yes Hx Diphtheria, Pertussis, Tetanus Vaccination: Yes Review of Systems - Review of Systems Notes: Constitutional: Negative for fever. HENT: Negative for sore throat. Eyes: Negative for visual changes. Cardiovascular: + Chest Respiratory: Negative for shortness of breath. Gastrointestinal: Negative for abdominal pain, vomiting or diarrhea. Genitourinary: Negative for dysuria. Musculoskeletal: + Numbness tingling right arm Skin: Negative for rash. Neurological: Negative for headaches, weakness or numbness. 10 point ROS negative except as marked above and in HPI. Physical Exam - Vital signs Vitals: Temp Pulse Resp BP 98.2 F 100 20 125/82 01/09/20 16:11 01/09/20 16:11 01/09/20 16:11 01/09/20 16:11 - Notes Notes: PHYSICAL EXAMINATION: Physical Exam: General: Well-nourished well-developed 24-year-old female in no acute distress HEENT: NC/AT, pupils equal round and reactive to light, MM moist,nares clear, oropharynx clear, airway patent Neck: supple, no adenopathy, no masses. Good range of motion Lungs: clear, no wheezing, no rales no rhonchi CVS: Tachycardic rate and rhythm no murmur gallop or rub Abdomen: Soft, active, nontender, no masses, no hepatosplenomegaly Ext: No edema, clubbing or cyanosis. Neuro: Alert and responsive, moving all 4 extremities on command, cranial nerves intact, no focal findings Skin: Intact no open lesions, no rash PSYCH: Normal mood, normal affect. Course - Re-evaluation Re-evalutation: 01/09/20 20:37 Patient was reassessed and is now doing much better, her blood pressure and heart rate are improved she also states that her symptoms have resolved with the IV fluids. Labs were negative with a normal hemoglobin hematocrit, electrolyte panel and troponin. While it was a low probability of a cardiac event with a heart score of 1. Discussed with the patient maintaining good hydration and taking her usual medications following up with her primary care doctor as needed. The patient is in agreement with that plan. - Vital Signs Vital signs: Temp Pulse Resp BP Pulse Ox 98.2 F 95 20 119/77 100 01/09/20 16:11 01/09/20 18:14 01/09/20 20:30 01/09/20 20:30 01/09/20 20:30 - Laboratory Result Diagrams: 01/09/20 16:23 01/09/20 16:23 Laboratory results interpreted by me: 01/09/20 01/09/20 16:23 17:50 Chloride 108 H Leukocyte Esterase Rfl SMALL H - Diagnostic Test Radiology reviewed: Image reviewed, Reports reviewed Radiology results interpreted by me: 01/10/20 01:39 Chest x-ray: No acute pulmonary findings - EKG Interpretation by Me Rate: Tachycardia - EKG interpreted by Dr. Longoria: Sinus tachycardia, rate 109, diffuse nonspecific STT wave abnormalities, QT interval normal, normal axis, compared with a previous EKG 07/19/2019 normal confirmed. No significant change Discharge - Discharge Clinical Impression: Non-cardiac chest pain, Tachycardia Condition: Good Disposition: HOME, SELF-CARE Instructions: Chest Pain of Unclear Cause ([facility]) Additional Instructions: You were seen in the emergency department tonight with episode of chest pain and arm pain right sided, it is unclear as to what may have caused your symptoms, EKG and lab work were nondiagnostic. Please follow-up with your primary care doctor as needed. Please continue your usual medication. If your symptoms are worsening or if you have other concerns you may return to the emergency department for further evaluation and treatment HOME CARE INSTRUCTIONS & INFORMATION: Thank you for choosing us for your medical needs. We hope you're satisfied with the care you received. After you leave, you must properly care for your problem and, at the same time, observe its progress. Any condition can change. Some illnesses can change rapidly over hours or days. If your condition worsens, return to the Emergency Department or see your physician promptly. ABOUT YOUR X-RAYS AND EKG'S: If you had an EKG or X-rays taken, they have been read by the Emergency Physician. The X-rays and EKG's will also be read by a Radiologist or Security Messenger within 24 hours. If discrepancies are noted, you will be notified by telephone. Please be certain the ED has a correct telephone number & address where you can be reached. Also, realize that some fractures or abnormalities do not show up on initial X-rays. If your symptoms continue, see your physician. ABOUT YOUR LABORATORY TEST: If you had laboratory tests, the results have been reviewed by the Emergency Physician. Some test results (for example cultures) may not be available for several days. You will be contacted if any test result shows you need additional treatment. Please be certain the ED has a correct telephone number and address where you can be reached. ABOUT YOUR MEDICATIONS: You will receive instructions on how to take your medicine on the prescription label you receive. Additional information may be provided by the Pharmacy. If you have questions afterwards, call the ED for clarification or further instructions. Some prescribed medications may cause drowsiness. Do not perform tasks such as driving a car or operating machinery without consulting your Pharmacist. If you feel you need a refill of pain medication, your condition will need re-evaluation. Please do not call for a refill of any medication. ABOUT YOUR SIGNATURE: Signature of this document acknowledges to followin. Understanding that you received emergency treatment and that you may be released before al medical problems are known or treated. Please be certain th e ED has a correct phone number & address where you can be reached. 2. Acknowledgement that you will arrange for follow-up care as recommended. 3. Authorization for the Emergency Physician to provide information to your follow-up Physician in order to maximize your care. AT ANY TIME, IF YOUR SYMPTOMS CHANGE SIGNIFICANTLY OR WORSEN OR YOU DEVELOP NEW SYMPTOMS, RETURN TO THE EMERGENCY DEPARTMENT IMMEDIATELY FOR RE-EVALUATION. OUR GOAL IS TO PROVIDE EXCELLENT MEDICAL CARE! WE HOPE THAT WE HAVE MET YOUR EXPECTATIONS DURING YOUR EMERGENCY DEPARTMENT VISIT AND THAT YOU FEEL YOU HAVE RECEIVED EXCELLENT CARE! Forms: Return to Work Referrals: WING DERAS PA-C [Primary Care Provider] - Follow up as needed
--- NOTE | 2020-01-09 20:41 | EKG REPORT ---
SEVERITY:- BORDERLINE ECG - SINUS TACHYCARDIA DIFFUSE NONSPECIFIC ST-T CHANGES : Confirmed by: Moshe Monroe MD 09-Jan-2020 20:40:08
[2020-01-09 20:53] VITALS: BP 119/77
== END 2020-01-09 20:55 | disposition home or self-care (01) ==
LOC: ER 15:59
DX: R07.89 Other chest pain (principal); R00.0 Tachycardia, unspecified; M79.601 Pain in right arm; R42 Dizziness and giddiness; Z91.040 Latex allergy status
CPT/HCPCS: 93005; 99285; 96360; 36415; 87086; 85025; 80053; 81001; 84484; 71045; 93010; J7030

== ENCOUNTER 2020-02-28 09:32 | Emergency (ER) | payer MEDICAID ==
[2020-02-28 09:37] VITALS: BP 119/73
[2020-02-28] MEDS ORDERED: METHOCARBAMOL 500 MG TABLET PO ONE (11:12)
[2020-02-28] MEDS ORDERED: IBUPROFEN 800 MG TABLET PO ONE (11:12)
[2020-02-28] MEDS ORDERED: LIDOCAINE 5% (700 MG) TRANSDERMAL ADH..PATCH TP ONE (11:12)
--- NOTE | 2020-02-28 11:15 | ER Document Report ---
HPI - HPI Patient complains to provider of: Neck discomfort Time Seen by Provider: 02/28/20 11:02 Onset: Other - 4 days Onset/Duration: Persistent Quality of pain: Achy Pain Level: 5 Context: Patient presents complaining of left-sided neck pain for the past 4 days. Patient thought she might of slept on it wrong. Patient denies any injury. Patient denies any fever or headache. She denies any improvement with [id number] medicines or tramadol or Percocet that she had at home. Associated Symptoms: Other - Left-sided neck pain. denies: Fever, Headache Exacerbated by: Movement Relieved by: Denies Similar symptoms previously: No Recently seen / treated by doctor: No - ROS ROS below otherwise negative: Yes Systems Reviewed and Negative: Yes All other systems reviewed and negative - CONSTITUTIONAL Constitutional: DENIES: Fever - NEURO Neurology: DENIES: Headache, Weakness - GASTROINTESTINAL Gastrointestinal: DENIES: Nausea - REPRODUCTIVE Reproductive: DENIES: : - MUSCULOSKELETAL Musculoskeletal: REPORTS: Back Pain, Neck Pain - DERM Skin Color: Normal Skin Problems: None Past Medical History - General Information source: Patient - Social History Smoking Status: Never Smoker Chew tobacco use (# tins/day): No Frequency of alcohol use: None Drug Abuse: None 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 Denies: Hx Cerebrovascular Accident, Hx Seizures Renal/ Medical History: Reports: Hx Ovarian Cysts. Denies: Hx Kidney Stones, Hx Peritoneal Dialysis Musculoskeletal Medical History: Reports Hx Arthritis, Reports Hx Musculoskeletal Deformity, Reports Hx Musculoskeletal Trauma Psychiatric Medical History: Reports: Hx Anxiety, Hx Attention Deficit Hyperactivity Disorder - Anxiety, Hx Depression Traumatic Medical History: Reports: Hx Fractures Past Surgical History: Reports: Hx Orthopedic Surgery - left ankle - Immunizations Immunizations up to date: Yes Hx Diphtheria, Pertussis, Tetanus Vaccination: Yes Vertical Provider Document - CONSTITUTIONAL Agree With Documented VS: Yes Exam Limitations: No Limitations General Appearance: WD/WN, No Apparent Distress - INFECTION CONTROL TRAVEL OUTSIDE OF THE [place] IN LAST 30 DAYS: No - HEENT HEENT: Atraumatic, Normocephalic - NECK Neck: Supple. negative: Lymphadenopathy-Left, Lymphadenopathy-Right Notes: Left sternocleidomastoid muscle tenderness with spasm, no meningismus, pain increases with lateral rotation of the head - RESPIRATORY Respiratory: Breath Sounds Normal, No Respiratory Distress - CARDIOVASCULAR Cardiovascular: Regular Rate, Regular Rhythm - BACK Back: Abnormal Inspection - Trapezius muscle tenderness with spasm. negative: CVA Tenderness-Right, CVA Tenderness-Left - MUSCULOSKELETAL/EXTREMETIES Musculoskeletal/Extremeties: MAEW, FROM, Non-Tender - NEURO Level of Consciousness: Awake, Alert, Appropriate Motor/Sensory: No Motor Deficit - DERM Integumentary: Warm, Dry, No Rash Course - Re-evaluation Re-evalutation: 02/28/20 11:13 Patient with sternocleidomastoid muscle and trapezius muscle tenderness with spasm, no midline tenderness, no concern for meningitis at this time. Will treat symptomatically and encourage outpatient follow-up with her primary doctor. Patient neurologically intact. 02/28/20 11:13 - Vital Signs Vital signs: Temp Pulse Resp BP Pulse Ox 98.2 F 88 16 119/73 98 02/28/20 09:36 02/28/20 09:36 02/28/20 09:36 02/28/20 09:36 02/28/20 09:36 Discharge - Discharge Clinical Impression: Trapezius muscle spasm Sprain of cervical neck Qualifiers: Encounter type: initial encounter Qualified Code(s): S13.9XXA - Sprain of joints and ligaments of unspecified parts of neck, initial encounter Condition: Stable Disposition: HOME, SELF-CARE Instructions: Muscle Relaxers ([facility]), Muscle Strain ([facility]), Upper Back Strain ([facility]), Warm Packs ([facility]) Additional Instructions: Return immediately for any new or worsening symptoms Followup with your primary care provider, call tomorrow to make a followup appointment Prescriptions: Lidocaine [Lidoderm 5% (700 mg) Transdermal Patch] 1 patch TP DAILY PRN #10 adh..patch PRN Reason: Naproxen [Naprosyn 250 Nmg Tablet] 1 tab PO BID #14 tablet Methocarbamol [Robaxin 500 Mg Tablet] 500 mg PO QID PRN #24 tablet PRN Reason: Forms: Return to Work Referrals: TAMAR MONTANO, JONATHAN [Primary Care Provider] - Follow up tomorrow
== END 2020-02-28 11:30 | disposition home or self-care (01) ==
LOC: ER 09:32
DX: S13.9XXA Sprain of joints and ligaments of unspecified parts of neck, initial encounter (principal); X58.XXXA Exposure to other specified factors, initial encounter; M62.830 Muscle spasm of back; M62.838 Other muscle spasm
CPT/HCPCS: 99283; J3490 ×3

== ENCOUNTER 2020-03-03 21:16 | Emergency (ER) | payer MEDICAID ==
[2020-03-03] MEDS ORDERED: FAMOTIDINE INJ/PF 20 MG/2 ML SDV IV ONE (21:54)
[2020-03-03] MEDS ORDERED: METHYLPREDNISOLONE INJ 125 MG/2 ML SDV IV ONE (21:54)
[2020-03-03] MEDS ORDERED: NORMAL SALINE 1000 ML 1,000 ML IV ONE (21:54)
[2020-03-03] MEDS ORDERED: DIPHENHYDRAMINE HCL 50 MG/ML VIAL IV ONE (21:54)
--- NOTE | 2020-03-03 21:57 | ER Document Report ---
ED Respiratory Problem - General Chief Complaint: Allergy Symptoms Stated Complaint: DIFFICULTY BREATHING/MUSCLE TIGHTNESS Time Seen by Provider: 03/03/20 21:47 Primary Care Provider: TAMAR MONTANO NP [Primary Care Provider] - Follow up as needed Mode of Arrival: Wheelchair Information source: Patient Notes: Pt presents complaining of difficulty breathing with muscle tightness that started around 9 PM. Patient states that symptoms started after she was around anchovies, at work, which is an allergen for her. Patient complains of pruritic rash to extremities. Patient states that she has felt dizzy and she did have some abdominal pain as well. Patient states that she was having muscle cramping to bilateral upper extremities and her hands were clenching although this has started to improve at this time. TRAVEL OUTSIDE OF THE [place] IN LAST 30 DAYS: No - HPI Patient complains to provider of: Short of breath Onset: Just prior to arrival Initiating Event: Allergy Quality of pain: Achy Pain Level: 1 Associated symptoms: Difficulty breathing, Hyperventilation, Tingling hands. denies: Chest pain/discomfort, Cough, Fever, Wheezing Similar symptoms previously: No Recently seen / treated by doctor: Yes - Related Data Allergies/Adverse Reactions: latex Allergy (Unknown, Verified 09/20/19 15:56) adhesive Allergy (Verified 09/20/19 15:56) nickel Allergy (Verified 09/20/19 15:56) ANTS Allergy (Uncoded 09/20/19 15:56) electrode gel Allergy (Uncoded 09/20/19 15:56) FISH Allergy (Uncoded 09/20/19 15:56) thimerosal Allergy (Uncoded 09/20/19 15:56) Home Medications: robaxin, melatonin, magnesium, cardiazem, bcp, zofran, tylenol, naproxen Past Medical History - General Information source: Patient - Social History Smoking Status: Never Smoker Frequency of alcohol use: None Drug Abuse: None 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 Denies: Hx Cerebrovascular Accident, Hx Seizures Renal/ Medical History: Reports: Hx Ovarian Cysts. Denies: Hx Kidney Stones, Hx Peritoneal Dialysis Musculoskeletal Medical History: Reports Hx Arthritis, Reports Hx Musculoskeletal Deformity, Reports Hx Musculoskeletal Trauma Psychiatric Medical History: Reports: Hx Anxiety, Hx Attention Deficit H yperactivity Disorder - Anxiety, Hx Depression Traumatic Medical History: Reports: Hx Fractures Past Surgical History: Reports: Hx Orthopedic Surgery - left ankle - Immunizations Immunizations up to date: Yes Hx Diphtheria, Pertussis, Tetanus Vaccination: Yes Review of Systems - Review of Systems Constitutional: No symptoms reported EENT: No symptoms reported Cardiovascular: Dyspnea Respiratory: Short of breath. denies: Cough Gastrointestinal: No symptoms reported. denies: Vomiting Genitourinary: No symptoms reported Female Genitourinary: No symptoms reported Musculoskeletal: Other - Muscle tightness to bilateral hands and arms Skin: Rash Hematologic/Lymphatic: No symptoms reported Neurological/Psychological: No symptoms reported Physical Exam - Vital signs Vitals: Temp Pulse Resp BP Pulse Ox 98.0 F 118 H 26 H 130/70 H 100 03/03/20 21:24 03/03/20 21:24 03/03/20 21:24 03/03/20 21:24 03/03/20 21:24 - General General appearance: Appears well, Alert, Anxious In distress: None - HEENT Head: Normocephalic, Atraumatic Eyes: Normal Conjunctiva: Normal Nasal: Normal Mouth/Lips: Normal Mucous membranes: Normal Pharynx: Normal. No: Erythema, Tonsillar hypertrophy, Uvular edema Neck: Normal, Supple. No: Lymphadenopathy - Respiratory Respiratory status: No respiratory distress Chest status: Nontender Breath sounds: Normal. No: Rales, Rhonchi, Stridor, Wheezing Chest palpation: Normal - Cardiovascular Rhythm: Tachycardia Heart sounds: S1 appreciated, S2 appreciated Murmur: No - Abdominal Inspection: Normal - Back Back: Normal, Nontender - Extremities General upper extremity: Normal ROM, Other - Patient has hands clenched in fists, able to open hands but declines to relax her hands General lower extremity: Normal inspection, Normal ROM - Neurological Neuro grossly intact: Yes Cognition: Normal [place] Coma Scale Eye Opening: Spontaneous [place] Coma Scale Verbal: Oriented [place] Coma Scale Motor: Obeys Commands [place] Coma Scale Total: 15 - Psychological Associated symptoms: Anxious - Skin Skin Temperature: Warm Skin Moisture: Dry Skin Color: Normal Skin irregularity: Rash - Few scattered maculopapular lesions with occasional pustular lesions to extremities and trunk, no urticarial lesions noted Course - Re-evaluation Re-evalutation: 03/04/20 00:00 On repeat examination, patient continues tachycardic heart rate 110-120, complains of still feeling dizzy at this time. IV fluids are infusing, medications had just recently been given. 03/04/20 00:19 Patient's heart rate presently in the 90s, patient visibly more calm. Patient states that she has not been able to take her usual daily dose of her Cardizem since she has been here. 03/04/20 01:16 Patient reports that she still has some dizziness. Patient vital signs have improved. Patient's macular erythematous rash seems to be resolving. Discussed with patient concern about possible anxiety and muscle cramping due to hyperventilation. Patient encouraged to follow-up with her primary doctor as well as her it trainee for recheck after today's visit. Will give patient short course of steroid medication due to concerns about allergic reaction that preempted her symptoms. Good return precautions discussed with patient and her spouse. Patient verbalized understanding is agreeable with discharge plan of care. - Vital Signs Vital signs: Temp Pulse Resp BP Pulse Ox 98.0 F 118 H 20 120/72 100 03/03/20 21:24 03/03/20 21:24 03/04/20 01:01 03/04/20 01:00 03/04/20 01:01 - Laboratory Result Diagrams: 03/03/20 23:15 03/03/20 23:15 Laboratory results interpreted by me: 03/03/20 03/03/20 23:15 23:15 WBC 12.4 H Absolute Neuts (auto) 10.0 H Seg Neutrophils % 80.3 H Carbon Dioxide 20 L - Diagnostic Test Radiology reviewed: Image reviewed, Reports reviewed - EKG Interpretation by Me EKG shows normal: Sinus rhythm Rate: Normal When compared to previous EKG there are: No significant change Additional EKG results interpreted by me: 03/03/20 23:41 NS rhythm with rate of 95, QTc 443, no acute ischemic changes Discharge - Discharge Clinical Impression: Anxiety, Hyperventilation, Dizziness Allergic reaction Qualifiers: Encounter type: initial encounter Qualified Code(s): T78.40XA - Allergy, unspecified, initial encounter Condition: Stable Disposition: HOME, SELF-CARE Instructions: Acute Allergic Reaction ([facility]), Corticosteroid Medication ([facility]), Hyperventilation ([facility]) Additional Instructions: Return immediately for any new or worsening symptoms Followup with your primary care provider, call tomorrow to make a followup appointment Increase oral fluids and stay well-hydrated Speak with your employer about ways to minimize exposure to anchovies given your allergy Follow-up with your it trainee for recheck, call tomorrow for an appointment Prescriptions: Meclizine HCl [Antivert 25 mg Tablet] 25 mg PO ASDIR PRN #12 tablet PRN Reason: Prednisone [Deltasone 10 mg Tablet] 10 mg PO ASDIR #21 tablet Famotidine [Pepcid 20 mg Tablet] 20 mg PO BID #12 tablet Forms: Return to Work Referrals: TAMAR MONTANO NP [Primary Care Provider] - Follow up as needed
--- NOTE | 2020-03-03 22:36 | RADIOLOGY REPORT (SQ) ---
EXAM DESCRIPTION: XR CHEST 2 VIEWS COMPLETED DATE/TME: 03/03/2020 21:54 CLINICAL HISTORY: 24 years, Female, diff breathing COMPARISON: 01/09/2020 chest NUMBER OF VIEWS: 2 TECHNIQUE: 2 view chest LIMITATIONS: None. FINDINGS: Heart size normal. Lungs clear. No pneumothorax IMPRESSION: Negative chest copyright 2011 [id number]- All Rights Reserved
[2020-03-03 23:29] LABS: ABSOLUTE LYMPHOCYTES (AUTO) 1.8 10^3/uL (0.5-4.7); ABSOLUTE MONOCYTES (AUTO) 0.6 10^3/uL (0.1-1.4); BASOPHILS % (AUTO) 0.3 % (0-2); EOSINOPHILS % (AUTO) 0.2 % (0-6); HEMATOCRIT 38.3 % (36.0-47.0); HEMOGLOBIN 13.2 g/dL (12.0-15.5); LYMPHOCYTES % (AUTO) 14.5 % (13-45); MEAN CORPUSCULAR HEMOGLOBIN 31.4 pg (27.0-33.4); MEAN CORPUSCULAR HGB CONC 34.5 g/dL (32.0-36.0); MEAN CORPUSCULAR VOLUME 91 fl (80-97); MONOCYTES % (AUTO) 4.7 % (3-13); PLATELET COUNT 314 10^3/uL (150-450); RED CELL DISTRIBUTION WIDTH 12.2 % (11.5-14.0); SEGMENTED NEUTROPHILS % (AUTO) 80.3 % (42-78); TOTAL CELLS COUNTED % (AUTO) 100 %; WHITE BLOOD COUNT 12.4 10^3/uL (4.0-10.5)
[2020-03-03 23:47] LABS: ANION GAP 15 (5-19); BLOOD UREA NITROGEN 16 mg/dL (7-20); CALCIUM 9.8 mg/dL (8.4-10.2); CARBON DIOXIDE 20 mmol/L (22-30); CHLORIDE 106 mmol/L (98-107); GLUCOSE 76 mg/dL (75-110)
[2020-03-03] MEDS ORDERED: ONDANSETRON HCL INJ/PF 4 MG/2 ML SDV IV ONE (23:51)
[2020-03-04] MEDS ORDERED: DILTIAZEM HCL 120 MG CAP.SR.24H PO ONE (00:19)
[2020-03-04] MEDS ORDERED: MECLIZINE HCL 25 MG TABLET PO ONE (01:16)
[2020-03-04 01:19] VITALS: BP 120/72
--- NOTE | 2020-03-04 08:48 | EKG REPORT ---
SEVERITY:- BORDERLINE ECG - SINUS RHYTHM PROBABLE LEFT ATRIAL ABNORMALITY : Confirmed by: Moshe Monroe MD 04-Mar-2020 08:47:36
== END 2020-03-04 01:43 | disposition home or self-care (01) ==
LOC: ER 21:16
DX: F41.9 Anxiety disorder, unspecified (principal); R25.2 Cramp and spasm; R21 Rash and other nonspecific skin eruption; T78.40XA Allergy, unspecified, initial encounter; X58.XXXA Exposure to other specified factors, initial encounter; R42 Dizziness and giddiness; R06.4 Hyperventilation; R10.9 Unspecified abdominal pain; I49.8 Other specified cardiac arrhythmias; R20.2 Paresthesia of skin; M19.90 Unspecified osteoarthritis, unspecified site; Z79.1 Long term (current) use of non-steroidal anti-inflammatories (NSAID); Z79.899 Other long term (current) drug therapy; Z79.3 Long term (current) use of hormonal contraceptives; Z91.038 Other insect allergy status; Z91.048 Other nonmedicinal substance allergy status; Z91.040 Latex allergy status; Z91.013 Allergy to seafood; Z88.8 Allergy status to other drugs, medicaments and biological substances
CPT/HCPCS: 93005; 99285; 96361 ×2; 96374; 96375; 36415; 85025; 80048; 71046; 93010; J3490; J1200; J2930; J2405; J7030; S0028

== ENCOUNTER 2020-03-30 22:39 | Emergency (ER) | payer MEDICAID, OTHER ==
--- NOTE | 2020-03-31 00:13 | ER Document Report ---
ED Medical Screen (RME) - General Stated Complaint: BACK PAIN/BLOOD IN STOOL/LEFT SIDE FLANK PAIN Time Seen by Provider: 03/31/20 00:04 Primary Care Provider: TAMAR MONTANO NP [Primary Care Provider] - Follow up as needed Notes: Patient presents to the ER for evaluation of nausea with tremors and breast pain times approximately 3 weeks. She states she has developed left lower quadrant abdominal pain and cramping with low back pain over the last week. She denies diarrhea but states she does have some lucero blood in her stool. She states she did have a test which she believes to have been a faint positive. Exam- CONSTITUTIONAL: Well appearing in no acute distress PULMONARY: Normal chest rise and fall, no respiratory distress or stridor CARDIOVASCULAR: Regular rate, distal extremities are warm and well perfused I have greeted and performed a rapid initial assessment of this patient. A comprehensive ED assessment and evaluation of the patient, analysis of test results and completion of the medical decision making process will be conducted by additional ED providers. Dictation of this chart was performed using voice recognition software; therefore, there may be some unintended grammatical errors. TRAVEL OUTSIDE OF THE [place] IN LAST 30 DAYS: No - Related Data Allergies/Adverse Reactions: latex Allergy (Unknown, Verified 09/20/19 15:56) adhesive Allergy (Verified 09/20/19 15:56) nickel Allergy (Verified 09/20/19 15:56) ANTS Allergy (Uncoded 09/20/19 15:56) electrode gel Allergy (Uncoded 09/20/19 15:56) FISH Allergy (Uncoded 09/20/19 15:56) thimerosal Allergy (Uncoded 09/20/19 15:56) Past Medical History - Past Medical History Cardiac Medical History: Denies: Hx Coronary Artery Disease, Hx Heart Attack, Hx Hypertension Pulmonary Medical History: Denies: Hx Asthma, Hx Bronchitis, Hx COPD, Hx Pneumonia Neurological Medical History: Reports: Hx Migraine. Denies: Hx Cerebrovascular Accident, Hx Seizures Renal/ Medical History: Reports: Hx Ovarian Cysts. Denies: Hx Kidney Stones, Hx Peritoneal Dialysis Musculoskeltal Medical History: Reports Hx Arthritis, Reports Hx Musculoskeletal Deformity, Reports Hx Musculoskeletal Trauma Psychiatric Medical History: Reports: Hx Anxiety, Hx Attention Deficit Hyperactivity Disorder - Anxiety, Hx Depression Traumatic Medical History: Reports: Hx Fractures Past Surgical History: Reports: Hx Orthopedic Surgery - left ankle - Immunizations Immunizations up to date: Yes Hx Diphtheria, Pertussis, Tetanus Vaccination: Yes Physical Exam - Vital signs Vitals: Temp Pulse Resp BP Pulse Ox 98.7 F 79 16 126/74 H 100 03/30/20 23:02 03/30/20 23:02 03/30/20 23:02 03/30/20 23:02 03/30/20 23:02 Course - Vital Signs Vital signs: Temp Pulse Resp BP Pulse Ox 98.7 F 79 16 126/74 H 100 03/30/20 23:02 03/30/20 23:02 03/30/20 23:02 03/30/20 23:02 03/30/20 23:02 Doctor's Discharge - Discharge Referrals: TAMAR MONTANO NP [Primary Care Provider] - Follow up as needed
[2020-03-31 00:34] LABS: APPEARANCE,URINE SLIGHTLY-CLOUDY; BILIRUBIN,URINE NEGATIVE (NEGATIVE); COLOR,URINE YELLOW; GLUCOSE, URINE NEGATIVE (NEGATIVE); KETONES,URINE NEGATIVE (NEGATIVE); LEUKOCYTE ESTERASE,URINE SMALL (NEGATIVE); NITRITE,URINE NEGATIVE (NEGATIVE); PROTEIN,URINE NEGATIVE (NEGATIVE); URINE SPECIFIC GRAVITY 1.017; UROBILINOGEN,URINE NEGATIVE mg/dL (<2.0)
--- NOTE | 2020-03-31 01:20 | ER Document Report ---
ED General - General Chief Complaint: Nausea/Vomiting Stated Complaint: BACK PAIN/BLOOD IN STOOL/LEFT SIDE FLANK PAIN Time Seen by Provider: 03/31/20 00:04 Primary Care Provider: KARINA TIJERINA MD [ACTIVE STAFF] - Follow up as needed Notes: Patient is a 24-year-old female that comes emergency department for a variety of complaints including nausea, vomiting, lower abdominal pain mainly in the left lower abdomen with cramping, lower back pain over the past week who is a breast pain. She states she also had 3 faintly positive home tests. She denies current vaginal bleeding, vaginal discharge, dysuria, current nausea, fever/chills. She states her back hurts because she has been on her feet too much. She also states that she noticed a little bit of blood in her stool but not recently. Patient is on Cardizem for PVCs reportedly, no other prescribed any medications currently being taken per patient. TRAVEL OUTSIDE OF THE [place] IN LAST 30 DAYS: No - Related Data Allergies/Adverse Reactions: latex Allergy (Unknown, Verified 09/20/19 15:56) adhesive Allergy (Verified 09/20/19 15:56) nickel Allergy (Verified 09/20/19 15:56) ANTS Allergy (Uncoded 09/20/19 15:56) electrode gel Allergy (Uncoded 09/20/19 15:56) FISH Allergy (Uncoded 09/20/19 15:56) thimerosal Allergy (Uncoded 09/20/19 15:56) Home Medications: bc, cardizem, Lamisil Past Medical History - General Information source: Patient - Social History Smoking Status: Never Smoker Frequency of alcohol use: None Drug Abuse: None Lives with: Family Family History: Reviewed & Not Pertinent, Other Patient has homicidal ideation: No - Past Medical History Cardiac Medical History: Denies: Hx Coronary Artery Disease, Hx Heart Attack, Hx Hypertension Pulmonary Medical History: Denies: Hx Asthma, Hx Bronchitis, Hx COPD, Hx Pneumonia Neurological Medical History: Reports: Hx Migraine. Denies: Hx Cerebrovascular Accident, Hx Seizures Renal/ Medical History: Reports: Hx Ovarian Cysts. Denies: Hx Kidney Stones, Hx Peritoneal Dialysis Musculoskeletal Medical History: Reports Hx Arthritis, Reports Hx Musculoskeletal Deformity, Reports Hx Musculoskeletal Trauma Psychiatric Medical History: Reports: Hx Anxiety, Hx Attention Deficit Hy peractivity Disorder - Anxiety, Hx Depression Traumatic Medical History: Reports: Hx Fractures Past Surgical History: Reports: Hx Orthopedic Surgery - left ankle - Immunizations Immunizations up to date: Yes Hx Diphtheria, Pertussis, Tetanus Vaccination: Yes Review of Systems - Review of Systems Constitutional: No symptoms reported EENT: No symptoms reported Cardiovascular: No symptoms reported Respiratory: No symptoms reported Gastrointestinal: See HPI Genitourinary: See HPI Female Genitourinary: See HPI Musculoskeletal: No symptoms reported Skin: No symptoms reported Hematologic/Lymphatic: No symptoms reported Neurological/Psychological: No symptoms reported Physical Exam - Vital signs Vitals: Temp Pulse Resp BP Pulse Ox 98.7 F 79 16 126/74 H 100 03/30/20 23:02 03/30/20 23:02 03/30/20 23:02 03/30/20 23:02 03/30/20 23:02 - Notes Notes: GENERAL: Alert, interacts well. No acute distress. Well-appearing and talkative HEAD: Normocephalic, atraumatic. EYES: Pupils equal, round, and reactive to light. Extraocular movements intact. ENT: Oral mucosa moist, tongue midline. Oropharynx unremarkable. Airway patent. Nares patent, sinuses non-tender, ear canals unremarkable, TM's intact. NECK: Full range of motion. Supple. Trachea midline. No lymphadenopathy. LUNGS: Clear to auscultation bilaterally, no wheezes, rales, or rhonchi. No respiratory distress. Non-tender chest wall. HEART: Regular rate and rhythm. No murmur ABDOMEN: There is mild tenderness over the mid to lower left abdomen, remaining abdomen unremarkable, no guarding, bowel sounds present throughout EXTREMITIES: Moves all 4 extremities spontaneously. No edema, normal radial and dorsalis pedis pulses bilaterally. No cyanosis. BACK: no cervical, thoracic, lumbar midline tenderness. No saddle anesthesia, normal distal neurovascular exam. Moves all extremities in full range of motion. NEUROLOGICAL: Alert and oriented x3. Normal speech. Cranial nerves II through XII grossly intact. Strength 5/5 in all extremities. PSYCH: Normal affect, normal mood. SKIN: Warm, dry, normal turgor. No rashes or lesions noted. Course - Re-evaluation Re-evalutation: Patient is alert and well-appearing. She has some mild tenderness in the left mid to lower abdomen but the abdomen is unremarkable otherwise. CBC, chemistry, urinalysis unremarkable. test is negative. Ultrasound from triage reviewed and shows no acute findings. Very low suspicion of acute abdomen or concerning infection based on her evaluation. I did offer additional evaluation including imaging versus rectal exam versus pelvic exam to evaluate for cause of the pain and her reported intermittent and resolved rectal bleeding. This was declined after we discussed options, instead patient will be treated for suspect ed gastrointestinal source of her symptoms, discussed expectations, follow-up, and return precautions. Patient states appreciation and agreement. Stable well-appearing at time of discharge. - Vital Signs Vital signs: Temp Pulse Resp BP Pulse Ox 98.7 F 87 16 116/66 99 03/31/20 05:24 03/31/20 05:24 03/31/20 05:24 03/31/20 05:24 03/31/20 05:24 - Laboratory Result Diagrams: 03/31/20 01:52 03/31/20 01:52 Laboratory results interpreted by me: 03/31/20 03/31/20 00:14 01:52 WBC 11.3 H RBC 3.70 L Hgb 11.7 L Hct 33.8 L Ur Leukocyte Esterase SMALL H Urine Ascorbic Acid 40 H Discharge - Discharge Clinical Impression: Abdominal pain Qualifiers: Abdominal location: generalized Qualified Code(s): R10.84 - Generalized abdominal pain Condition: Stable Disposition: HOME, SELF-CARE Additional Instructions: Your laboratory tests and your ultrasound do not show any concerning findings. Based on your work-up, exam, and symptoms I suspect your pain is coming from your bowel. I recommend the Bentyl for pain, the stool softener as prescribed for the next several days, and the Zofran if needed for nausea. Drink plenty of fluids, eat plenty of fiber. If symptoms continue follow-up with primary care and/or the gastroenterology referral. Return if you worsen including severe worsening pain, repeated vomiting, fever, or any other concerning symptoms Prescriptions: Dicyclomine HCl [Bentyl 20 mg Tablet] 20 mg PO QID PRN #20 tablet PRN Reason: Docusate Sodium [Colace 100 mg Capsule] 100 mg PO ASDIR PRN #30 capsule PRN Reason: Ondansetron [Zofran Odt 4 mg Tablet] 1 - 2 tab PO Q4H PRN #15 tab.rapdis PRN Reason: For Nausea/Vomiting Forms: Return to Work Referrals: KARINA TIJERINA MD [ACTIVE STAFF] - Follow up as needed
[2020-03-31] MEDS ORDERED: DIPHENHYDRAMINE HCL 50 MG/ML VIAL IM ONE (02:02)
[2020-03-31 02:09] LABS: ABSOLUTE BASOPHILS # (AUTO) 0.1 10^3/uL (0.0-0.2); ABSOLUTE EOSINOPHILS # (AUTO) 0.1 10^3/uL (0.0-0.6); ABSOLUTE LYMPHOCYTES (AUTO) 3.3 10^3/uL (0.5-4.7); ABSOLUTE MONOCYTES (AUTO) 0.6 10^3/uL (0.1-1.4); ABSOLUTE NEUT (AUTO) 7.3 10^3/uL (1.7-8.2); BASOPHILS % (AUTO) 0.5 % (0-2); EOSINOPHILS % (AUTO) 1.1 % (0-6); HEMATOCRIT 33.8 % (36.0-47.0); HEMOGLOBIN 11.7 g/dL (12.0-15.5); LYMPHOCYTES % (AUTO) 28.8 % (13-45); MEAN CORPUSCULAR HEMOGLOBIN 31.5 pg (27.0-33.4); MEAN CORPUSCULAR HGB CONC 34.5 g/dL (32.0-36.0); MEAN CORPUSCULAR VOLUME 91 fl (80-97); MONOCYTES % (AUTO) 5.3 % (3-13); PLATELET COUNT 321 10^3/uL (150-450); RED CELL DISTRIBUTION WIDTH 12.3 % (11.5-14.0); SEGMENTED NEUTROPHILS % (AUTO) 64.3 % (42-78); TOTAL CELLS COUNTED % (AUTO) 100 %; WHITE BLOOD COUNT 11.3 10^3/uL (4.0-10.5)
[2020-03-31 02:20] LABS: ALBUMIN 4.6 g/dL (3.5-5.0); ALKALINE PHOSPHATASE 41 U/L (38-126); ANION GAP 12 (5-19); ASPARTATE AMINO TRANSFERASE 25 U/L (14-36); BILIRUBIN,DIRECT 0.2 mg/dL (0.0-0.4); BILIRUBIN,TOTAL 0.5 mg/dL (0.2-1.3); BLOOD UREA NITROGEN 12 mg/dL (7-20); CALCIUM 9.4 mg/dL (8.4-10.2); CARBON DIOXIDE 22 mmol/L (22-30); CHLORIDE 103 mmol/L (98-107); GLUCOSE 86 mg/dL (75-110); POTASSIUM 3.8 mmol/L (3.6-5.0); TOTAL PROTEIN 7.3 g/dL (6.3-8.2)
--- NOTE | 2020-03-31 04:10 | RADIOLOGY REPORT (SQ) ---
Ultrasound of the pelvis: 03/31/2020 3:08 AM [facility] HISTORY: 24-year-old patient with pelvic and abdominal pain. TECHNIQUE: Multiple grayscale and color Doppler images of the pelvis were obtained transvaginally. COMPARISON: None available FINDINGS: The uterus measures 7.3 x 2.8 x 4.1 cm. The endometrium measures 4.0 mm in thickness. No myometrial mass is seen. The right ovary measures 3.9 x 1.9 x 2.4 cm. There is a probable physiologic cysts within the right ovary measuring up to 2.3 cm. The left ovary measures 3.0 x 1.9 x 1.5 cm. Normal arterial waveforms were obtained from both ovaries. No free intraperitoneal fluid is seen within the posterior cul-de-sac. IMPRESSION: No sonographic abnormality is seen within the pelvis.
[2020-03-31 05:24] VITALS: BP 116/66
== END 2020-03-31 05:26 | disposition home or self-care (01) ==
LOC: ER 22:39
DX: R10.84 Generalized abdominal pain (principal); R10.819 Abdominal tenderness, unspecified site; R11.2 Nausea with vomiting, unspecified; M54.5 Low back pain; I49.3 Ventricular premature depolarization; Z79.899 Other long term (current) drug therapy; Z91.040 Latex allergy status; Z91.048 Other nonmedicinal substance allergy status; Z91.038 Other insect allergy status; Z91.013 Allergy to seafood
CPT/HCPCS: 99285; 96372; 36415; 84703; 85025; 80053; 81001; 76830; 93976; J1200